=== PATIENT | male | born 1960 | race Caucasian/White ===

== ENCOUNTER 2018-07-05 14:56 | Emergency (ER) | payer MEDICARE, SELFPAY ==
[2018-07-05 14:57] VITALS: BP 148/99; PULSE 56; RESP 18; TEMP 36.6; O2SAT 98; BMI 33.1
--- NOTE | 2018-07-05 16:35 | RAD_ITS ---
STUDY: X-RAY CHEST REASON FOR EXAM: Male, 57 years old. Back pain. TECHNIQUE: Frontal and lateral views of the chest. COMPARISON: None. FINDINGS: The lungs are hyperexpanded. There is a mild interstitial pattern. There is no demonstrated pleural abnormality. There is moderate cardiomegaly. Normal mediastinum and erin. Normal visualized pulmonary arteries. There is atherosclerotic calcification of the aortic arch with tortuosity. Normal visualized thoracic spine. Normal visualized ribs, clavicles, and shoulders. There is no demonstrated abnormality of the visualized soft tissue structures of the upper abdomen. RAD/Chest PA and Lateral IMPRESSION: Moderate cardiomegaly with hyperexpansion. No acute pathology. Electronically Signed: Tyler Cuello MD at 17:01 EDT , Service support ,
[2018-07-05 17:08] LABS: Bacteria 0 SEEN /hpf (None Seen); Squamous Epithelial Cells - UA 0 SEEN /hpf (0-5)
[2018-07-05 17:18] LABS: Color, Urine Yellow (Yellow); Glucose, Dipstick Normal (Normal); Ketone-Dipstick Negative (Negative); Leukocyte Esterase-Dipstick 25 /ul (Negative); Nitrite-Dipstick Negative (Negative); Occult Blood-Urine 10 /ul (Negative); Protein-Dipstick 15 mg/dl (Negative); Urine Bilirubin Dipstick Negative (Negative); Urine Clarity Clear (Clear); Urine Urobilinogen 1 mg/dl (Normal)
[2018-07-05 17:37] LABS: Hyaline Cast 0-5 SEEN /lpf (0-5); Mucous, Urine 2+ /hpf (<or=2+)
[2018-07-05 17:38] LABS: Red Blood Cells-Urine 0-5 SEEN /hpf (0-5)
[2018-07-05 17:40] LABS: White Blood Cells 0-5 SEEN /hpf (0-5)
--- NOTE | 2018-07-05 18:57 | ED.VISSUMM ---
- ER Visit Summary Date of Service: 07/05/18 Chief Complaint: Patient presents with left back pain for 4 days. It is worse when he twists. No known mechanism. He has no urinary symptoms. He has no chest pain or shortness of breath. He has no PE risk factors. He has no chest pain. No abdominal pain. No hematuria. Physical Examination: Not appear in acute distress. Moist mucous membranes, no obvious facial deformity No C-spine tenderness supple neck. Regular rate and rhythm without any obvious murmurs He does have reproducible pain on the left, it is the lower trapezius region, no significant flank pain. Clear lungs bilaterally speaking in full sentences without any obvious respiratory distress Abdomen soft and nontender no guarding or rebound Moves all extremities without any difficulty or pain. Skin does not show any obvious rashes or lesions, no trauma. Alert oriented ?3 with no gross focal deficit Emergency Department Course and Treatment: [Patient has no CVA tenderness but he was worried about a kidney stone urinalysis showed no urinary tract infection or hematuria his pain is not consistent with a kidney stone I will not pursue this any further, his pain is mechanical worse with twisting. His chest x-ray looks unremarkable with no intra-thoracic catastrophe. Patient appears well he has had a constant pain for 3-4 days which is mechanical with twisting he will be discharged in stable condition] Impression: Thoracic strain [] This note was generated with [employer] dictation software. It may contain incorrect words, spelling, and punctuation that were not noted in review of the chart prior to signing ED Disposition - Plan for ED Patient: Disposition: Home or Assisted Living Chief Complaint: Back Instructions: ED Spasm Back No Trauma Prescriptions: Naproxen [Naprosyn] 500 mg PO BID PRN #20 tab Referrals: Care Physician,No Primary [Primary Care Provider] - 3-5 Days
[2018-07-05 19:12] VITALS: BP 161/106; PULSE 62; RESP 16; O2SAT 97
== END 2018-07-05 19:18 | disposition home or self-care (01) ==
PROVIDERS: Emergency Provider Emergency Medicine
DX: S29.012A Strain of muscle and tendon of back wall of thorax, initial encounter (principal); I10 Essential (primary) hypertension; E78.00 Pure hypercholesterolemia, unspecified; Z79.82 Long term (current) use of aspirin; Z79.899 Other long term (current) drug therapy; X58.XXXA Exposure to other specified factors, initial encounter; Y93.9 Activity, unspecified; Y92.9 Unspecified place or not applicable; Y99.9 Unspecified external cause status
CPT/HCPCS: 71046; 81001; 90471; 99284

== ENCOUNTER 2018-12-04 18:30 | Emergency (ER) | payer MEDICARE, SELFPAY ==
[2018-12-04 18:30] VITALS: BP 130/75; PULSE 71; RESP 18; TEMP 37.1; O2SAT 96; BMI 34.8
--- NOTE | 2018-12-04 22:08 | RAD_ITS ---
STUDY: X-RAY - LEFT TIBIA AND FIBULA REASON FOR EXAM: Male, 58 years old. History of infection. TECHNIQUE: AP and lateral view(s) of the tibia and fibula were obtained. COMPARISON: None. FINDINGS: There is a side plate and screws securing old fracture of the proximal tibial shaft with deformity. Multiple surgical clips are seen in the soft tissues. There is an old healed fracture of the mid third of the fibular shaft. There is no demonstrated acute fracture. There is demineralization of the osseous structures. There is diffuse soft tissue swelling and edema more prominent in the medial aspect of the left lower leg and calf region. RAD/Tibia & Fibula 2 Views IMPRESSION: 1. Old fractures of the tibia and fibula with and postoperative changes. 2. Soft tissue swelling. 3. No demonstrated destructive bony process. If osteomyelitis is suspected clinically, three-phase bone scan is recommended. Electronically Signed: Juanpablo Cadena MD at 22:43 EST Tel , Service support ,
--- NOTE | 2018-12-04 22:08 | ED.VISSUMM ---
- ER Visit Summary Date of Service: 12/04/18 Chief Complaint: Left lower extremity infection History of Present Illness: The patient is a 58 M with history of bone and muscle graft to the left lower extremity who presents with 6 days of pain and swelling to the posterior lower leg. Patient states he has had similar infections of the skin of the left lower extremity, but normally it is on the front of the leg. Last was 2 years ago. Patient has been having worsening erythema, swelling and pain to touch on the back of the leg. He denies any fever or constitutional symptoms. He is not on any blood thinners. History of hypothyroidism and depression. Physical Examination: Patient is afebrile and hemodynamically stable, well-nourished and well-developed standing up in the room. Examination of the left lower extremity shows chronic soft tissue deformities and multiple surgical scars to the leg distal to the knee. Diffuse 1+ pitting edema. Erythema to the posterior calf with a discrete erythematous nonfluctuant tender lesion. Erythema radiating proximal to this lesion. Small abrasion near the area of erythema. Distal sensation and motor function intact. DP pulses 2+. Remainder of exam unremarkable. Test Results: Clinical Impression(s) from Imaging Studies Tibia/Fibula X-Ray 12/04/18 22:08 IMPRESSION: 1. Old fractures of the tibia and fibula with and postoperative changes. 2. Soft tissue swelling. 3. No demonstrated destructive bony process. If osteomyelitis is suspected clinically, three-phase bone scan is recommended. Electronically Signed: Juanpablo Cadena MD at 22:43 EST Tel , Service support , Medications Given Clindamycin HCl (Cleocin) 450 mg PO X1 ONE Stop: 12/04/18 23:04 Emergency Department Course and Treatment: Given patient's anatomical changes secondary to multiple surgeries and his history of multiple surgeries on that part of the leg, x-ray was performed to evaluate for any subcutaneous gas or osteomyelitis that might indicate a deeper space infection. X-ray showed some soft tissue swelling but no sign of deeper infection or osteomyelitis. Patient has a small abrasion near the erythematous cellulitic area, which may be the nidus of infection. Patient is well-appearing, afebrile and is amenable to a trial of outpatient therapy. Patient was given prescription for clindamycin and strict return precautions. Patient discharged home.. Treatment Plan: [] Disposition: [] Impression: left lower leg cellulitis This note was generated with [employer] dictation software. It may contain incorrect words, spelling, and punctuation that were not noted in review of the chart prior to signing ED Disposition - Plan for ED Patient: Disposition: Home or Assisted Living Instructions: Discharge Instructions for Cellulitis Prescriptions: RX: Clindamycin [Cleocin] 450 mg PO TID #63 cap Referrals: Curt Ram MD [Primary Care Provider] - 1-2 Days if not improving Additional Instructions: Please follow-up with your doctor for another evaluation of your leg in 1-3 days, especially if you are not seeing any improvement. If at any time your symptoms worsen or you develop a fever, dizziness, lightheadedness, red streaking up your leg, severe pain, or any other concerns, return immediately to the emergency department for another evaluation.
--- NOTE | 2018-12-04 22:11 | ED.DCSUM_ITS ---
- ER Visit Summary Date of Service: 12/04/18 Chief Complaint: Left lower extremity infection History of Present Illness: The patient is a 58 M with history of bone and muscle graft to the left lower extremity who presents with 6 days of pain and swelling to the posterior lower leg. Patient states he has had similar infections of the skin of the left lower extremity, but normally it is on the front of the leg. Last was 2 years ago. Patient has been having worsening erythema, swelling and pain to touch on the back of the leg. He denies any fever or constitutional symptoms. He is not on any blood thinners. History of hypothyroidism and depression. Physical Examination: Patient is afebrile and hemodynamically stable, well-nourished and well- developed standing up in the room. Examination of the left lower extremity shows chronic soft tissue deformities and multiple surgical scars to the leg distal to the knee. Diffuse 1+ pitting edema. Erythema to the posterior calf with a discrete erythematous nonfluctuant tender lesion. Erythema radiating proximal to this lesion. Small abrasion near the area of erythema. Distal sensation and motor function intact. DP pulses 2+. Remainder of exam unremarkable. Test Results: Clinical Impression(s) from Imaging Studies Tibia/Fibula X-Ray 12/04/18 22:08 IMPRESSION: 1. Old fractures of the tibia and fibula with and postoperative changes. 2. Soft tissue swelling. 3. No demonstrated destructive bony process. If osteomyelitis is suspected clinically, three-phase bone scan is recommended. Electronically Signed: Juanpablo Cadena MD at 22:43 EST Tel , Service support , Medications Given Clindamycin HCl (Cleocin) 450 mg PO X1 ONE Stop: 12/04/18 23:04 Emergency Department Course and Treatment: Given patient's anatomical changes secondary to multiple surgeries and his history of multiple surgeries on that part of the leg, x-ray was performed to evaluate for any subcutaneous gas or osteomyelitis that might indicate a deeper space infection. X-ray showed some soft tissue swelling but no sign of deeper infection or osteomyelitis. Patient has a small abrasion near the erythematous cellulitic area, which may be the nidus of infection. Patient is well-appearing, afebrile and is amenable to a trial of outpatient therapy. Patient was given prescription for clindamycin and strict return precautions. Patient discharged home.. Treatment Plan: [] Disposition: [] Impression: left lower leg cellulitis This note was generated with [employer] dictation software. It may contain incorrect words, spelling, and punctuation that were not noted in review of the chart prior to signing ED Disposition - Plan for ED Patient: Disposition: Home or Assisted Living Instructions: Discharge Instructions for Cellulitis Prescriptions: RX: Clindamycin [Cleocin] 450 mg PO TID #63 cap Referrals: Curt Ram MD [Primary Care Provider] - 1-2 Days if not improving Additional Instructions: Please follow-up with your doctor for another evaluation of your leg in 1-3 days, especially if you are not seeing any improvement. If at any time your symptoms worsen or you develop a fever, dizziness, lightheadedness, red streaking up your leg, severe pain, or any other concerns, return immediately to the emergency department for another evaluation.
[2018-12-04 22:24] VITALS: BP 131/82; PULSE 58; PULSE 61; RESP 17; TEMP 36.8; O2SAT 96; O2SAT 97
[2018-12-04] MEDS: Clindamycin HCl 150 MG Capsule 450 MG PO (23:17)
[2018-12-04 23:18] VITALS: PULSE 69; RESP 18; O2SAT 98
== END 2018-12-04 23:19 | disposition home or self-care (01) ==
PROVIDERS: Emergency Provider Emergency Medicine; Family Provider Family Medicine; PCP Family Medicine
DX: L03.116 Cellulitis of left lower limb (principal); Z79.82 Long term (current) use of aspirin; Z79.899 Other long term (current) drug therapy
CPT/HCPCS: 73590; 99283

== ENCOUNTER 2018-12-05 11:52 | Observation (INO) | payer MEDICARE, SELFPAY ==
[2018-12-04 18:30] VITALS: BMI 34.8
[2018-12-05] VITALS (8 sets, daily range): BP systolic 122–152; BP diastolic 60–94; PULSE 60–72; RESP 16–18; TEMP 36.2–36.8; O2SAT 95–98; BMI 35.2; BMI 34.4
--- NOTE | 2018-12-05 12:01 | VDLE_ITS ---
Reason For Study: LEG SWELLING RIGHT LEFT CFV is compressible, spontaneous, phasic, GSV is normal. competent and demonstrates normal CFV is compressible, spontaneous, phasic, augmentation. competent, and demonstrates normal Procedure augmentation. Exam performed portable in ED. FV is compressible, spontaneous, phasic, A preliminary report was called and/or faxed competent and demonstrates normal to Dr. Cruz. augmentation. POP V is compressible, spontaneous, phasic, competent and demonstrates normal augmentation. T/P Trunk is compressible. PTV is compressible. LT PerV is compressible. Interpretation Summary Deep veins of the left lower extremity are patent and compressible segmentally. There is no evidence of left lower extremity deep vein thrombosis. Valvular competence appears intact within the proximal deep venous system on the left . The left greater saphenous vein appears patent and compressible segmentally. Ordering Physician: Humberto Cruz Referring Physician: Curt Ram Performed By: Magdalena Whitehead RVT
--- NOTE | 2018-12-05 12:28 | ED.VISSUMM ---
- ER Visit Summary Date of Service: 12/05/18 Chief Complaint: Cellulitis History of Present Illness: The patient is a 58 M presents to the emergency department with cellulitis. The patient has a history of prior skin, muscle, and bone grafting of his left lower extremity. He states intimately, he will get an infection of the area. He states over the past 5 days, he has had some increasing redness and pain at the area. He was actually seen here last night. At that time, his x-ray was unremarkable. He was started on clindamycin. He followed up with his primary care physician today. There was concern that it was getting more red and spreading. He denies any fevers. He denies any chills or sweats. Physical Examination: Vital signs reviewed General: Well-nourished, well-developed Head: Normocephalic, atraumatic Eyes: Pupils equal and reactive, extraocular muscles intact Neck, supple, no lymphadenopathy Heart: Regular rate and rhythm Respiratory: No distress, clear bilaterally Abdomen: Soft, nontender, nondistended, no peritoneal signs Back: Nontender Extremities: Chronic changes of the left lower extremity from skin grafting. There is cellulitis with some nodularity on the posterior aspect. There is no crepitus. Pulses are normal. There is no skin breakdown or drainage. Skin: Normal color no rash Neuro: Alert and oriented, no focal or lateralizing deficits Test Results: [] Emergency Department Course and Treatment: Patient presents with worsening erythema of the posterior leg. He is on clindamycin. He saw his primary care today who is worried given the rather acute progression. I did obtain an ultrasound. Vasculature was normal. There was no definitive fluid collection that was consistent with an abscess. Screening labs were obtained and are relatively unremarkable. The patient was started on IV antibiotics. At this time, I do feel that he would benefit from admission for IV antibiotics and reevaluation of the area. Patient was discussed with the hospitalist. Treatment Plan: [] Disposition: Admission Impression: 1. Left lower extremity cellulitis This note was generated with [employer] software. It may contain incorrect words, spelling, and punctuation that were not noted in review of the chart prior to signing ED Disposition - Plan for ED Patient: Referrals: Curt Ram MD [Primary Care Provider] -
[2018-12-05 12:46] LABS: Absolute Lymphocyte Count 1.85 X10^3/ul (0.83-4.51); Absolute Neutrophil Count 2.8 X10^3/uL (2.0-7.7); Basophil# 0.15 X10^3/uL; Basophil% 2.3 % (0-1); Eosinophil# 0.66 X10^3/uL; Eosinophils% 10.2 % (0-5); Hematocrit 33.7 % (40-54); Hemoglobin 10.8 g/dl (13.0-16.5); Lymphocyte # 1.85 X10^3/ul (4.0); Lymphocyte % 28.7 % (19-41); Mean Corpuscular Hgb 29.1 pg (27.0-32.0); Mean Corpuscular Volume 90.8 fL (80-94); Mean Platelet Vol. 9.5 fl (6.2-12.0); Monocyte# 0.96 X10^3/uL; Monocyte% 14.9 % (0-10); Neutrophil # 2.82 X10^3/uL (2.7-7.7); Neutrophil % 43.7 % (47-70); POSITIVE COUNT NO; POSITIVE DIFFERENTIAL NO; POSITIVE MORPHOLOGY NO; Platelet Count 245 K/mm3 (150-450); RBC Distribution Width CV 14.4 % (11.6-14.6); RBC Distribution Width SD 47.8 fl (35.1-43.9); Red Blood Count 3.71 M/mm3 (4.6-6.2); White Blood Count 6.5 K/mm3 (4.4-11.0)
[2018-12-05 12:59] LABS: ALB/GLOB Ratio 0.8 RATIO (0.9-2.4); AST(SGOT) 27 U/L (15-37); Alanine Aminotransfer ALT/SGPT 30 U/L (16-61); Albumin, Serum 3.2 g/dL (3.2-5.0); Alkaline Phosphatase 93 U/L (45-117); Anion Gap 5 (5-15); BUN 13 mg/dL (7-18); BUN/Creat Ratio 13.1 RATIO (10-20); Calcium,Total 8.1 mg/dL (8.5-10.1); Chloride 110 mmol/L (98-107); Creatinine, Serum 0.99 mg/dL (0.70-1.30); EST Glomerular Filtration Rate 82 mL/min (>60); Est Glom Filt Rate - Afr Amer 99 mL/min (>60); Estimated Creatinine Clearance 85.57 ml/min; Globulin 3.8 g/dL (2.2-4.2); Glucose 92 mg/dL (74-106); Potassium 3.5 mmol/L (3.5-5.1); Sodium Level 142 mmol/L (136-145)
[2018-12-05 13:07] LABS: Lactic Acid 1.3 mmol/L (0.4-2.0)
[2018-12-05] MEDS: Ceftriaxone 1 GM/50 ML BAG IV (13:31)
--- NOTE | 2018-12-05 14:14 | NURSING ---
MED SURG JAVAD LEFT LOWER EXTREMITY CELLULITIS
--- NOTE | 2018-12-05 17:08 | HP.PCM_ITS ---
<Tobin Guerra - Last Filed: 12/05/18 17:19> Problem List (1) Cellulitis Status: Acute (2) Crush injury lower leg Status: Chronic (3) GERD (gastroesophageal reflux disease) Status: Acute (4) BPH (benign prostatic hyperplasia) Status: Chronic (5) Hypothyroidism Status: Chronic (6) HLD (hyperlipidemia) Status: Chronic History of Present Illness Date of Admission: 12/05/18 Chief Complaint: left leg swelling The patient is a 58 year old M with pmhx of crush injury to the left leg, htn, hld, prior cellulitis of the crush injury area, hypothyroidism who presents to the ER with c/o swelling and redness of the left lower extremity over his old crush injury (22 years ago). He began to notice the changes about one week prior. He denies trauma to the area, it began spontaneously. He has had cellulitis of this area several years prior. He does not know what type of bacteria he had. He was started on clinda and was sent by his PCP to the ER. He has no fever or chills. No other signs of infection. No cough/sob. No diarrhea, Nausea, or abdominal pain. [] Past Medical History Past Medical History (Chronic Problems): Chronic Problems Crush injury lower leg (Chronic) BPH (benign prostatic hyperplasia) (Chronic) Hypothyroidism (Chronic) HLD (hyperlipidemia) (Chronic) Allergies No Known Allergies Allergy (Verified 12/04/18 18:33) Home Medications: Ambulatory Orders Medication Instructions Recorded Famotidine [Pepcid] 20 mg PO DAILY 05/18/16 Finasteride [Proscar] 5 mg PO DAILY 05/18/16 Pravastatin [Pravachol] 40 mg PO QHS 05/18/16 Aspirin E.C. [Ecotrin] 81 mg PO DAILY@0800 12/12/16 Cyanocobalamin (Vitamin B-12) 1,000 mcg PO DAILY 12/04/18 [Vitamin B-12] Fluoxetine HCl 40 mg PO DAILY 12/05/18 Labetalol [Trandate (Beta Jigar)] 100 mg PO BID 12/05/18 Levothyroxine [Synthroid] 75 mcg PO DAILY 12/05/18 Surgical History: herniorrhaphy, - - crush injury repair. Psychiatric History: No pertinent psych hx Lives: Spouse/ Significant Other Smoking Status: Former smoker Tobacco Use: Non-smoker Alcohol: None Drugs: None - *Family History Maternal History Items: Cancer Paternal History Items: Hypertension Review of Systems Constitutional: Denies: Chills, Fever, Weight Change HEENT: Denies: Head Aches, Sinus Congestion, Sinus Drainage Cardiovascular: Denies: Chest Pain, Palpitations Respiratory: Denies: Cough, Shortness of breath at rest, Sputum production Gastrointestinal: Denies: Abdominal Pain, Nausea, Vomiting Genitourinary: Denies: Dysuria Musculoskeletal: Denies: Joint Pain, Joint Tenderness Skin: Reports: - - LLE warmth, erythema, swelling. Demarcated. Denies: Rash, Wounds Neurological: Denies: Numbness, Tingling, Focal weakness Psychiatric: Denies: Anxiety, Depression, Homicidal Ideations, Suicidal Ideations Hematologic/ Lymphatic: Denies: Easy Bruising, Easy Bleeding VTE Information - Inpt Only VTE Present on Admission: No VTE Mechan Device Prophylaxis: None VTE Pharm Prophylaxis ordered?: Yes Patient Problems: Active and Suspected Problems Cellulitis (Acute) GERD (gastroesophageal reflux disease) (Acute) - Physical Exam General: Alert, Oriented x3, Cooperative HEENT: Atraumatic, PERRLA, EOMI, Normocephalic Neck: Supple, No JVD, Negative Carotid Bruits Lungs: Clear to auscultation, Normal air movement Cardiovascular: Regular rate, No murmurs Abdomen: Bowel Sounds Present, Soft, Non Tender Extremities: No edema, Capillary Refill Less than 3 Seconds Skin: No rashes, No breakdown, - - LLE warmth, swelling, erythtema, demarcated. Musculoskeletal: No Tenderness to Palpation of Joints or Extremities Neurological: Cranial nerves II-XII grossly intact Psych/Mental Status: Normal Affect, Appropriate Vital Signs Temp Pulse Resp BP Pulse Ox 97.2 F L 64 18 128/60 H 98 12/05/18 16:00 12/05/18 16:00 12/05/18 16:00 12/05/18 16:00 12/05/18 16:00 Oxygen Delivery Method Room Air Weight: 246 lb 11.156 oz Body Mass Index (BMI) 34.4 Laboratory Tests Past 24 Hrs 12/05/18 12/05/18 12/05/18 12:31 12:31 12:31 WBC 6.5 RBC 3.71 L Hgb 10.8 L Hct 33.7 L MCV 90.8 MCH 29.1 MCHC 32.0 RDW 14.4 RDW Differential 47.8 H Plt Count 245 MPV 9.5 Immature Gran % (Auto) 0.200 Neut % (Auto) 43.7 L Lymph % (Auto) 28.7 [place]if[place] % (Auto) 14.9 H Eos % (Auto) 10.2 H Baso % (Auto) 2.3 H Absolute Neuts (auto) 2.8 Absolute Lymphs (auto) 1.85 Total Counted Not Reportable Sodium 142 Potassium 3.5 Chloride 110 H Carbon Dioxide 27.0 Anion Gap 5 BUN 13 Creatinine 0.99 Estim Creat Clear Calc 85.57 Est GFR (MDRD) Af Amer 99 Est GFR (MDRD) Non-Af 82 BUN/Creatinine Ratio 13.1 Glucose 92 Lactic Acid 1.3 Calcium 8.1 L Total Bilirubin 1.60 H AST 27 ALT 30 Alkaline Phosphatase 93 Total Protein 7.0 Albumin 3.2 Globulin 3.8 Albumin/Globulin Ratio 0.8 L Assessment/Plan All Active Problems Cellulitis (Acute) GERD (gastroesophageal reflux disease) (Acute) Acute respiratory insufficiency (Acute) Hemoptysis (Acute) CAP (community acquired pneumonia) (Acute) 1. Acute LLE cellulitis - Received o/p clinda, Vanc/Rocephin in ER. Continue Ancef. Erythema demarcated. No fever or leukocytosis. No other signs of sepsis. No open areas or drainage. 2. Crush injury 22 years prior - area is permanently structurally changed and pt reports some of his vasculature was destroyed, which will contribute to poor wound healing as above 3. Hx of Ruptured brain aneurysm 4. HLD - statin 5. HTN - stable 6. Mild normocytic anemia 7. GERD - pepcid 8. BPH - proscar 9. Hypothyroid - synthroid DVT ppx: lovenox This patient was seen by Tobin Guerra PA-C under the supervision of Dr. Aguilar. <Jevon Aguilar - Last Filed: 12/05/18 17:35> History of Present Illness The patient is a 58 year old M [] Past Medical History Allergies No Known Allergies Allergy (Verified 12/04/18 18:33) - Physical Exam Vital Signs Temp Pulse Resp BP Pulse Ox 97.2 F L 64 18 128/60 H 98 12/05/18 16:00 12/05/18 16:00 12/05/18 16:00 12/05/18 16:00 12/05/18 16:00 Oxygen Delivery Method Room Air Weight: 246 lb 11.156 oz Body Mass Index (BMI) 34.4 Laboratory Tests Past 24 Hrs 12/05/18 12/05/18 12/05/18 12:31 12:31 12:31 WBC 6.5 RBC 3.71 L Hgb 10.8 L Hct 33.7 L MCV 90.8 MCH 29.1 MCHC 32.0 RDW 14.4 RDW Differential 47.8 H Plt Count 245 MPV 9.5 Immature Gran % (Auto) 0.200 Neut % (Auto) 43.7 L Lymph % (Auto) 28.7 [place] % (Auto) 14.9 H Eos % (Auto) 10.2 H Baso % (Auto) 2.3 H Absolute Neuts (auto) 2.8 Absolute Lymphs (auto) 1.85 Total Counted Not Reportable Sodium 142 Potassium 3.5 Chloride 110 H Carbon Dioxide 27.0 Anion Gap 5 BUN 13 Creatinine 0.99 Estim Creat Clear Calc 85.57 Est GFR (MDRD) Af Amer 99 Est GFR (MDRD) Non-Af 82 BUN/Creatinine Ratio 13.1 Glucose 92 Lactic Acid 1.3 Calcium 8.1 L Total Bilirubin 1.60 H AST 27 ALT 30 Alkaline Phosphatase 93 Total Protein 7.0 Albumin 3.2 Globulin 3.8 Albumin/Globulin Ratio 0.8 L Code Visit Addendum: Dr. Aguilar I personally examined the patient and reviewed the chart. I agree with the above. 58-year-old male who presented to the ER yesterday with left lower extremity cellulitis at the site of his previous crush injury from 22 years ago that had required skin grafting, he was given clindamycin yesterday and presents back today because he felt that it looked a little bit worse. His made him go to his primary care physician who felt that he should come back to the ER. He is hemodynamically stable and is not septic. There is no sign of an abscess therefore will treat as a strep cellulitis with Ancef. If he improves can either resume clindamycin which she already has at home, or can be discharged on Keflex. OBSV E&M: [id number] Initial observation care L3
[2018-12-05] MEDS: Labetalol 100 MG Tablet PO (21:46)
[2018-12-05] MEDS: 0.9% NaCl Peripheral Flush Adult/Peds IV (21:46)
[2018-12-05] MEDS: Cefazolin 2 GM in 0.9% Normal Saline 100 ML IV (21:46)
[2018-12-05] MEDS: Pravastatin 40 MG Tablet PO (21:46)
[2018-12-06] MEDS: oxyCODONE 5 MG Tablet PO (01:06)
[2018-12-06 04:14] VITALS: BP 137/84; PULSE 70; RESP 16; TEMP 36.6; O2SAT 94
[2018-12-06] MEDS: Cefazolin 2 GM in 0.9% Normal Saline 100 ML IV (06:22)
[2018-12-06] MEDS: Levothyroxine 75 MCG Tablet PO (06:22)
[2018-12-06] MEDS: 0.9% NaCl Peripheral Flush Adult/Peds IV (06:23)
[2018-12-06 07:20] LABS: Absolute Lymphocyte Count 1.57 X10^3/ul (0.83-4.51); Absolute Neutrophil Count 3.3 X10^3/uL (2.0-7.7); Basophil# 0.08 X10^3/uL; Basophil% 1.3 % (0-1); Eosinophil# 0.59 X10^3/uL; Eosinophils% 9.3 % (0-5); Hematocrit 33.4 % (40-54); Hemoglobin 10.5 g/dl (13.0-16.5); Lymphocyte # 1.57 X10^3/ul (4.0); Lymphocyte % 24.8 % (19-41); Mean Corp Hgb Conc 31.4 g/gl (32-36); Mean Corpuscular Volume 92.3 fL (80-94); Monocyte# 0.81 X10^3/uL; Monocyte% 12.8 % (0-10); Neutrophil # 3.27 X10^3/uL (2.7-7.7); Neutrophil % 51.6 % (47-70); Platelet Count 265 K/mm3 (150-450); RBC Distribution Width CV 14.3 % (11.6-14.6); RBC Distribution Width SD 46.8 fl (35.1-43.9); Red Blood Count 3.62 M/mm3 (4.6-6.2); White Blood Count 6.3 K/mm3 (4.4-11.0)
[2018-12-06 07:21] LABS: POSITIVE COUNT NO; POSITIVE DIFFERENTIAL NO; POSITIVE MORPHOLOGY NO
[2018-12-06 07:53] LABS: Anion Gap 7 (5-15); BUN 7 mg/dL (7-18); BUN/Creat Ratio 8.2 RATIO (10-20); Calcium,Total 7.8 mg/dL (8.5-10.1); Chloride 113 mmol/L (98-107); Creatinine, Serum 0.85 mg/dL (0.70-1.30); EST Glomerular Filtration Rate 98 mL/min (>60); Est Glom Filt Rate - Afr Amer 118 mL/min (>60); Estimated Creatinine Clearance 99.66 ml/min; Glucose 89 mg/dL (74-106); Potassium 3.5 mmol/L (3.5-5.1); Sodium Level 145 mmol/L (136-145)
[2018-12-06 09:00] VITALS: BP 138/81; PULSE 68; RESP 18; TEMP 36.7; O2SAT 94
[2018-12-06] MEDS: FLUoxetine 20 MG Capsule 40 MG PO (09:02)
[2018-12-06] MEDS: Cyanocobalamin 500 MCG Tablet 1000 MCG PO (09:02)
[2018-12-06] MEDS: Aspirin E.C. 81 MG Tablet PO (09:02)
[2018-12-06] MEDS: Labetalol 100 MG Tablet PO (09:03)
[2018-12-06] MEDS: Famotidine 20 MG Tablet PO (09:03)
[2018-12-06] MEDS: Finasteride 5 MG Tablet PO (09:05)
[2018-12-06] MEDS: Enoxaparin 40 MG/0.4 ML Syringe SC (09:05)
--- NOTE | 2018-12-06 11:45 | DCINST_ITS ---
- Discharge Diagnoses Current Active Problems: Current Active and Chronic Problems Crush injury lower leg (Chronic) Cellulitis (Acute) GERD (gastroesophageal reflux disease) (Acute) BPH (benign prostatic hyperplasia) (Chronic) Hypothyroidism (Chronic) HLD (hyperlipidemia) (Chronic) You will use the following diet at home:: No restrictions Your food should be the consistency of: Regular Your liquids should be the consistency of: Regular/Thin Discharge Activity: Return to Normal Activity Allergies/Adverse Reactions: Allergies No Known Allergies Allergy (Verified 12/04/18 18:33) Medications to take at Discharge Famotidine [Pepcid] 20 mg PO DAILY 05/18/16 Finasteride [Proscar] 5 mg PO DAILY 05/18/16 Pravastatin [Pravachol] 40 mg PO QHS 05/18/16 Aspirin E.C. [Ecotrin] 81 mg PO DAILY@0800 12/12/16 Cyanocobalamin (Vitamin B-12) [Vitamin B-12] 1,000 mcg PO DAILY 12/04/18 Fluoxetine HCl 40 mg PO DAILY 12/05/18 Labetalol [Trandate (Beta Jigar)] 100 mg PO BID 12/05/18 Levothyroxine [Synthroid] 75 mcg PO DAILY 12/05/18 Cephalexin [Keflex] 500 mg PO Q8H #15 capsule 12/06/18 The following prescriptions were given: Cephalexin [Keflex] 500 mg PO Q8H #15 capsule Primary Care Physician: Curt Ram MD [Primary Care Provider] - Please follow up with your Primary Care Physician in: 1 week Test Results: Test results from this visit will be discussed in further detail at your follow- up appointment, if applicable.
--- NOTE | 2018-12-06 15:30 | PCM.DC.SUM ---
<Tobin Guerra - Last Filed: 12/06/18 15:30> Discharge Date and Diagnosis Date of Admission: 12/05/18 Date of Discharge: 12/06/18 - Primary Discharge Diagnosis Acute cellulitis, presumed streptococcal, of left lower extremity over old crush injury Traumatic crush injury 22 years prior History of BPH History of hypothyroidism History of hyperlipidemia History of GERD - Secondary Discharge Diagnosis Chronic Problems Crush injury lower leg (Chronic) BPH (benign prostatic hyperplasia) (Chronic) Hypothyroidism (Chronic) HLD (hyperlipidemia) (Chronic) Hospital Course and Treatment Imaging Results: Venous duplex LLE Interpretation Summary Deep veins of the left lower extremity are patent and compressible segmentally. There is no evidence of left lower extremity deep vein thrombosis. Valvular competence appears intact within the proximal deep venous system on the left . The left greater saphenous vein appears patent and compressible segmentally. Operations: None Procedures: None Summary of Care Provided: Hospital course: The patient is a 58 year old M with past medical history of a crush injury 22 years prior requiring multiple skin grafts, prior cellulitis over that area, history of hypertension, GERD, BPH, who presented to the emergency room with complaints of left lower extremity erythema and swelling worsening x 7 days. He had no fever, no leukocytosis. Venous ultrasound was ordered and did not show any DVT. It appeared that he had cellulitis over the area of his old crush injury. He reported that he did have a history of cellulitis in that area. He denied having a history of MRSA. He had been placed on clindamycin by his PCP, who was concerned that the rash was not improving and sent him to the emergency room. He was admitted to the general medical floor and started on IV Ancef as this appeared to be streptococcal infection. There are no open areas or areas suggesting abscess. No drainage. The wound was demarcated. He was monitored overnight and the following morning his area of cellulitis had improved dramatically. He continued to have no fever or white blood cell count and otherwise appeared nontoxic. He was placed on oral Keflex to complete 5 more days for total of 7 days antibiotic therapy. He was discharged home in stable condition. He will need to follow-up with his PCP in 1 week. This patient was seen by Tobin Guerra PA-C under the supervision of Doctor Lee. [] - Physical Exam General: Alert, Oriented x3, Cooperative HEENT: Atraumatic, PERRLA, EOMI, Normocephalic Neck: Supple, No JVD, Negative Carotid Bruits Lungs: Clear to auscultation, Normal air movement Cardiovascular: Regular rate, No murmurs Abdomen: Bowel Sounds Present, Soft, Non Tender Extremities: No edema, Capillary Refill Less than 3 Seconds Skin: - - Left lower extremity area of cellulitis, erythema is regressing away from the demarcations, erythema is less, no further warmth, no areas of abscess, no open areas, no lymphatic stranding in proximal leg. Musculoskeletal: No Tenderness to Palpation of Joints or Extremities Neurological: Cranial nerves II-XII grossly intact Psych/Mental Status: Normal Affect, Appropriate, Alert and oriented to time, place, person, mood and affect Vital Signs Temp Pulse Resp BP Pulse Ox 98.1 F 68 18 138/81 H 94 12/06/18 09:00 12/06/18 09:00 12/06/18 09:00 12/06/18 09:00 12/06/18 09:00 Oxygen Delivery Method Room Air Weight: 246 lb 11.156 oz Body Mass Index (BMI) 34.4 Intake and Output for Last 24 Hours 12/04/18 12/05/18 12/06/18 23:59 23:59 23:59 Intake Total 1300 / 1300 1550.3 / 1550.3 Output Total 650 / 650 500 / 500 Balance 650 / 650 1050.3 / 1050.3 Laboratory Tests Past 24 Hrs 12/06/18 12/06/18 06:50 06:50 WBC 6.3 RBC 3.62 L Hgb 10.5 L Hct 33.4 L MCV 92.3 MCH 29.0 MCHC 31.4 L RDW 14.3 RDW Differential 46.8 H Plt Count 265 MPV 10.0 Immature Gran % (Auto) 0.200 Neut % (Auto) 51.6 Lymph % (Auto) 24.8 [place] % (Auto) 12.8 H Eos % (Auto) 9.3 H Baso % (Auto) 1.3 H Absolute Neuts (auto) 3.3 Absolute Lymphs (auto) 1.57 Total Counted Not Reportable Sodium 145 Potassium 3.5 Chloride 113 H Carbon Dioxide 25.0 Anion Gap 7 BUN 7 Creatinine 0.85 Estim Creat Clear Calc 99.66 Est GFR (MDRD) Af Amer 118 Est GFR (MDRD) Non-Af 98 BUN/Creatinine Ratio 8.2 L Glucose 89 Calcium 7.8 L Discharge Activity: Return to Normal Activity Home Medications: Medications to take at Discharge Famotidine [Pepcid] 20 mg PO DAILY 05/18/16 Finasteride [Proscar] 5 mg PO DAILY 05/18/16 Pravastatin [Pravachol] 40 mg PO QHS 05/18/16 Aspirin E.C. [Ecotrin] 81 mg PO DAILY@0800 12/12/16 Cyanocobalamin (Vitamin B-12) [Vitamin B-12] 1,000 mcg PO DAILY 12/04/18 Fluoxetine HCl 40 mg PO DAILY 12/05/18 Labetalol [Trandate (Beta Jigar)] 100 mg PO BID 12/05/18 Levothyroxine [Synthroid] 75 mcg PO DAILY 12/05/18 Cephalexin [Keflex] 500 mg PO Q8H #15 capsule 12/06/18 Following Prescrptions Were Given to Patient: Cephalexin [Keflex] 500 mg PO Q8H #15 capsule Primary Care Physician: Curt Ram MD [Primary Care Provider] - Please follow up with your Primary Care Physician in: 1 week Disposition: Home Minutes spent on discharge:: 35 Patient Condition:: Stable Medical Necessity - Tobacco Use Smoking Status: Former smoker Tobacco Use: Non-smoker Meaningful Use Info Meaningful Use Diagnoses (Choose all that apply): None applicable <Irma Lee - Last Filed: 12/06/18 15:54> Discharge Date and Diagnosis - Secondary Discharge Diagnosis Chronic Problems Crush injury lower leg (Chronic) BPH (benign prostatic hyperplasia) (Chronic) Hypothyroidism (Chronic) HLD (hyperlipidemia) (Chronic) Hospital Course and Treatment Summary of Care Provided: This patient was seen in conjunction with CLARK Vasquez. I have independently interviewed and examined the patient and reviewed pertinent historical, laboratory, and other data. Please refer to CLARK Vasquez note for his patient's presentation, findings, and recommendations. I have reviewed and his note and concur with his documentation 58-year-old male with past medical history of crush injury status post multiple skin graft, history of cellulitis, hypertension, GERD, BPH comes in with complaints of lower extremity erythema and swelling ongoing for a week. Venous Doppler ultrasound was negative for any DVT. Patient was admitted to the floor, managed on IV Ancef. He appears improved, no events overnight. He was discharged home on Keflex. The day of discharge, patient was seen and examined. Denied any new complaint. Denies fever, chills, chest pain or dizziness or palpitation. He was ready for discharge. Vitals were stable Labs reviewed -able Physical Exam: Gen: Obese, alert oriented x3 , not pale, not jaundiced CVS:HS I +II, regular, no murmurs RESP: CTA GI: Full, firm, nontender, no ballotable organs heart sounds are present, soft, nontender, no palpable organs EXT: Left lower extremity erythema improved, scarring of the left lower extremity - Physical Exam Vital Signs Temp Pulse Resp BP Pulse Ox 98.1 F 68 18 138/81 H 94 12/06/18 09:00 12/06/18 09:00 12/06/18 09:00 12/06/18 09:00 12/06/18 09:00 Oxygen Delivery Method Room Air Weight: 111.9 kg Body Mass Index (BMI) 34.4 Intake and Output for Last 24 Hours 12/04/18 12/05/18 12/06/18 23:59 23:59 23:59 Intake Total 1300 / 1300 1550.3 / 1550.3 Output Total 650 / 650 500 / 500 Balance 650 / 650 1050.3 / 1050.3 Laboratory Tests Past 24 Hrs 12/06/18 12/06/18 06:50 06:50 WBC 6.3 RBC 3.62 L Hgb 10.5 L Hct 33.4 L MCV 92.3 MCH 29.0 MCHC 31.4 L RDW 14.3 RDW Differential 46.8 H Plt Count 265 MPV 10.0 Immature Gran % (Auto) 0.200 Neut % (Auto) 51.6 Lymph % (Auto) 24.8 [place] % (Auto) 12.8 H Eos % (Auto) 9.3 H Baso % (Auto) 1.3 H Absolute Neuts (auto) 3.3 Absolute Lymphs (auto) 1.57 Total Counted Not Reportable Sodium 145 Potassium 3.5 Chloride 113 H Carbon Dioxide 25.0 Anion Gap 7 BUN 7 Creatinine 0.85 Estim Creat Clear Calc 99.66 Est GFR (MDRD) Af Amer 118 Est GFR (MDRD) Non-Af 98 BUN/Creatinine Ratio 8.2 L Glucose 89 Calcium 7.8 L Discharge Diet: Low fat/ Low Cholesterol, 2000 mg Sodium Diet Code Visit Inpatient E&M: 45917 Disch Hosp
== END 2018-12-06 13:35 | disposition home or self-care (01) ==
LOC: ED 12:30 → MS3 14:23
PROVIDERS: Admitting Provider Family Medicine; Emergency Provider Emergency Medicine; Family Provider Family Medicine; PCP Family Medicine; Referring Provider Family Medicine; Visit Provider Internal Medicine
DX: L03.116 Cellulitis of left lower limb (principal); K21.9 Gastro-esophageal reflux disease without esophagitis; E78.5 Hyperlipidemia, unspecified; E03.9 Hypothyroidism, unspecified; N40.0 Benign prostatic hyperplasia without lower urinary tract symptoms; Z79.899 Other long term (current) drug therapy; Z79.82 Long term (current) use of aspirin; Z87.891 Personal history of nicotine dependence; D64.9 Anemia, unspecified; I10 Essential (primary) hypertension
CPT/HCPCS: 80048; 80053; 83605; 85025; 87040; 93971; 96365; 96366; 96367; 96372; 96376; 99218; 99283; J7030; J7040; A4216; G0378

== ENCOUNTER 2019-09-29 09:52 | Observation (INO) | payer MEDICARE, SELFPAY ==
[2018-12-05 15:01] VITALS: BMI 34.4
[2019-09-29] VITALS (9 sets, daily range): BP systolic 133–166; BP diastolic 82–119; PULSE 54–72; RESP 17–18; TEMP 36.2–36.6; O2SAT 95–98; BMI 34.8; BMI 33.6; BMI 33.7
--- NOTE | 2019-09-29 10:21 | VDLE_ITS ---
Reason For Study: swelling RIGHT LEFT CFV is compressible, spontaneous, phasic, GSV is normal. competent and demonstrates normal CFV is compressible, spontaneous, phasic, augmentation. competent, and demonstrates normal Procedure augmentation. Exam performed portable in ED. FV is compressible, spontaneous, phasic, The exam was diagnostic. competent and demonstrates normal A preliminary report was called and/or faxed augmentation. to ED Physician. POP V is compressible, spontaneous, phasic, competent and demonstrates normal augmentation. T/P Trunk is compressible. PTV is compressible. LT PerV is compressible. Interpretation Summary Deep veins of the left lower extremity are patent and compressible segmentally. There is no evidence of left lower extremity deep vein thrombosis. Valvular competence appears intact within the proximal deep venous system on the left . The left great saphenous vein appears patent and compressible segmentally. Ordering Physician: Verna Long Performed By: Vasile Jamison RVT
--- NOTE | 2019-09-29 10:21 | EKG12_ITS ---
Test Reason : CP Blood Pressure : / mmHG Vent. Rate : 054 BPM Atrial Rate : 054 BPM P-R Int : 216 ms QRS Dur : 094 ms QT Int : 470 ms P-R-T Axes : -17 004 029 degrees QTc Int : 445 ms Sinus bradycardia with 1st degree A-V block Minimal voltage criteria for LVH, may be normal variant Borderline ECG Confirmed by ROOPA HORNE, ANITHA ([id number]), manager editorial ROSAURA ROMERO ([id number]) on 10/05/2019 11:52:28 AM Referred By: Yoel Duval Confirmed By:ANITA BLAS MD
--- NOTE | 2019-09-29 10:21 | RAD_ITS ---
STUDY: X-RAY CHEST REASON FOR EXAM: Male, 58 years old. 20 minute history of chest pain. TECHNIQUE: PA and lateral views of the chest. COMPARISON: Comparison is made with prior examination dated July 05, 2018. FINDINGS: EKG electrodes are seen. Hyperinflation. Minimal thickening of the right minor fissure. There is no demonstrated pleural abnormality. Normal size heart. Normal mediastinum and erin. Normal visualized pulmonary arteries. There is atherosclerotic tortuosity of the aortic arch and descending thoracic aorta. There are degenerative changes of the visualized thoracic spine. Normal visualized ribs, clavicles, and shoulders. Calcific densities are seen in the right upper quadrant most likely secondary to gallstones. RAD/Chest PA and Lateral IMPRESSION: Hyperinflation. The lungs are clear. Electronically Signed: Brenton Gaytan, at 10:54 EST , Service support ,
[2019-09-29] MEDS: Aspirin 81 MG TAB.CHEW 324 MG PO (10:26)
--- NOTE | 2019-09-29 10:27 | ED.DCSUM_ITS ---
History of Present Illness Chief Complaint: Chest Pain Informant: Patient Onset: Yesterday Activity at onset: Exertion Timing: Intermittent Quality: Sharp Location: Right Chest Narrative: Patient is a 58-year-old male with history of hypertension and prior brain aneurysm presenting with chest pain. He states he developed it this morning when he was cleaning snow off his car. Is in the right side of his chest. It lasted for about 30 minutes and then resolve spontaneously. Patient denies any associated shortness of breath. He notes he had a couple episodes similar to this yesterday. They all seem to be exertional associated with exertion. He did have cough and cold-like symptoms for the past week which have resolved. He denies associated fever. He denies any shortness of breath. He denies any upper respiratory symptoms currently. He denies any abdominal pain or GI symptoms. Patient does have a history of a crush injury to his left lower leg and does feel it is maybe been slightly more swollen or red over the past few days. He denies any other complaints at this time. Prior Similar Symptoms: No Past Medical History - Allergies and Home Meds Allergies/Adverse Reactions: Allergies No Known Allergies Allergy (Verified 09/29/19 09:54) Primary Care Physician: Curt Ram MD [Primary Care Provider] - Past Medical History: - - Crush injury to the left lower leg, cellulitis, GERD, BPH, hypothyroid, hyperlipidemia Surgical History: herniorrhaphy, - - crush injury repair. Lives: Spouse/ Significant Other Smoking Status: Former smoker - Family History Maternal Family History: Reports: Cancer Paternal Family History: Reports: Hypertension Review of Systems General: Denies: Chills, Fever, Sweats Eyes: Denies: Visual changes - bilaterally, Diplopia ENT: Denies: Rhinorrhea, Sore throat Cardiovascular: Reports: Chest pain. Denies: Palpitations Respiratory: Reports: Cough. Denies: Dyspnea, Dyspnea on exertion Gastrointestinal: Denies: Abdominal pain, Nausea, Vomiting, Diarrhea, Melena, Hematochezia Genitourinary: Denies: Dysuria, Hematuria, Frequency Musculoskeletal: Reports: Extremity Pain - Left lower extremity?calf. Denies: Back pain Skin: Denies: Rash, Wounds Neurological: Denies: Headache, Weakness, Numbness Physical Exam Vital Signs/Narrative: Vital Signs Temp Pulse Resp BP Pulse Ox 09/29/19 09:52 98 F 54 L 18 152/97 H 98 Inital Vital Signs reviewed: Yes General: Well nourished, Well developed, No Acute Distress Head: Normocephalic, Atraumatic Eyes: Perrl, EOMI ENT: Moist mucous membranes, No rhinorrhea Neck: Supple, Nontender, No JVD Cardiovascular: Regular rate, Regular rhythm, No murmurs Respiratory: No distress, CTA bilaterally, Chest nontender Abdomen: Soft, Nontender, Nondistended, Normal bowel sounds Back: Nontender, Normal Inspection Extremities: Nontender, Edema - Nonpitting of the left lower leg, - - deformity and evidence of multiple surgeries of the left calf from a prior crush injury Skin: Normal color, No rash Neurological: Alert, Oriented x3, Cranial nerves II-XII grossly intact, Normal Strength, Normal Sensation Psychological: Normal affect, Normal Mood Diagnostic/Tx/Re-eval Chest X-Ray - ED: 2 View, Read by ED Physician, Read by Radiologist, No Acute Disease Clinical Impression(s) from Imaging Studies Chest X-Ray 09/29/19 10:21 IMPRESSION: Hyperinflation. The lungs are clear. Electronically Signed: Brenton Gaytan, at 10:54 EST , Service support , Laboratory Data 09/29/19 09/29/19 10:30 10:30 WBC 4.9 RBC 3.85 L Hgb 10.7 L Hct 33.8 L MCV 87.8 MCH 27.8 MCHC 31.7 L RDW Std Deviation 48.1 H RDW Coeff of Tomi 15.1 H Plt Count 312 MPV 9.2 Immature Gran % (Auto) 0.400 Neut % (Auto) 42.0 L Lymph % (Auto) 32.8 [place] % (Auto) 12.4 H Eos % (Auto) 10.6 H Baso % (Auto) 1.8 H Absolute Neuts (auto) 2.1 Absolute Lymphs (auto) 1.61 Nucleated RBC % 0 Sodium 141 Potassium 3.4 L Chloride 108 H Carbon Dioxide 29.0 Anion Gap 4 L BUN 9 Creatinine 0.87 Estim Creat Clear Calc 97.37 Est GFR (MDRD) Af Amer 115 Est GFR (MDRD) Non-Af 95 BUN/Creatinine Ratio 10.3 Glucose 79 Calcium 8.2 L Troponin I < 0.015 - Rhythm Strip Rhythm Strip: Sinus bradycardia Rate: 54 Ectopy: None - EKG Initial EKG Interpretation: Sinus Bradycardia, - - Bradycardia at a rate of 59 First-degree AV block with a IL interval of 216 QRS 94 QTc 445 Normal axis Flattening of the T wave in lead III Treatment: Aspirin Repeat Eval: Pain Free - Medical Decision Making Patient is evaluated with exertional chest pain. The pain last for about 30 minutes today. He is given aspirin in the emergency room. He is currently pain-free. EKG does not show any significant ST segment changes/abnormalities. Troponin is normal. Patient does have deformity of his left lower leg I did obtain an ultrasound to rule out a DVT. With a negative DVT study I do with a lower suspicion for PE I do not think a CTA or d-dimer is indicated at this time. Patient has some cardiac risk factors including hyperlipidemia and obesity. I do think he would benefit from further cardiac monitoring especially with the exertional nature of his chest pain. He is agreeable to this plan. He is stable for the general medical floor at time of disposition. ED Disposition - Plan for ED Patient: Disposition: Acute Care Hospital [facility] Diagnosis: Chest pain Referrals: Curt Ram MD [Primary Care Provider] -
[2019-09-29 10:35] LABS: Absolute Lymphocyte Count 1.61 X10^3/uL (0.83-4.51); Absolute Neutrophil Count 2.1 X10^3/uL (2.0-7.7); Basophil# 0.09 X10^3/uL; Basophil% 1.8 % (0-1); Eosinophil# 0.52 X10^3/uL; Eosinophils% 10.6 % (0-5); Hematocrit 33.8 % (40-54); Hemoglobin 10.7 g/dL (13.0-16.5); Lymphocyte # 1.61 X10^3/ul (4.0); Lymphocyte % 32.8 % (19-41); Mean Corp Hgb Conc 31.7 g/dL (32-36); Mean Corpuscular Hgb 27.8 pg (27.0-32.0); Mean Corpuscular Volume 87.8 fL (80-94); Mean Platelet Vol. 9.2 fl (6.2-12.0); Monocyte# 0.61 X10^3/uL; Monocyte% 12.4 % (0-10); NRBC Flagged by Analyzer 0 % (0-5); Neutrophil # 2.06 X10^3/uL (2.7-7.7); Platelet Count 312 K/mm3 (150-450); RBC Distribution Width CV 15.1 % (11.6-14.6); RBC Distribution Width SD 48.1 fl (35.1-43.9); Red Blood Count 3.85 M/mm3 (4.6-6.2); White Blood Count 4.9 K/mm3 (4.4-11.0)
[2019-09-29 10:52] LABS: Anion Gap 4 (5-15); BUN 9 mg/dL (7-18); BUN/Creat Ratio 10.3 RATIO (10-20); Calcium,Total 8.2 mg/dL (8.5-10.1); Chloride 108 mmol/L (98-107); Creatinine, Serum 0.87 mg/dL (0.70-1.30); EST Glomerular Filtration Rate 95 mL/min (>60); Est Glom Filt Rate - Afr Amer 115 mL/min (>60); Estimated Creatinine Clearance 97.37 ml/min; Glucose 79 mg/dL (74-106); Potassium 3.4 mmol/L (3.5-5.1); Sodium Level 141 mmol/L (136-145)
--- NOTE | 2019-09-29 11:35 | PCM.HP.STD ---
Problem List (1) Crush injury lower leg Status: Chronic (2) GERD (gastroesophageal reflux disease) Status: Chronic (3) BPH (benign prostatic hyperplasia) Status: Chronic (4) Hypothyroidism Status: Chronic (5) HLD (hyperlipidemia) Status: Chronic (6) Chest pain Status: Acute History of Present Illness Date of Admission: 09/29/19 Chief Complaint: Chest discomfort The patient is a 58 year old M with past medical history single for hypertension, dyslipidemia, hypothyroidism who presented with chest discomfort. Patient said to started a day prior to coming in he did experience some discomfort located in the retrosternal region prior to going to bed. He did notice this recurrence of his pain this a.m. while cleaning snow off his vehicle. He reports getting some relief with rest. Pain however recurred resulting in patient presented to the emergency department. Initial set of EKG and cardiac enzymes came back unremarkable subsequently admitted to a monitored bed for further management. Past Medical History Past Medical History (Chronic Problems): Chronic Problems Crush injury lower leg (Chronic) GERD (gastroesophageal reflux disease) (Chronic) BPH (benign prostatic hyperplasia) (Chronic) Hypothyroidism (Chronic) HLD (hyperlipidemia) (Chronic) Allergies No Known Allergies Allergy (Verified 09/29/19 09:54) Home Medications: Ambulatory Orders Medication Instructions Recorded Famotidine [Pepcid] 20 mg PO DAILY 05/18/16 Finasteride [Proscar] 5 mg PO DAILY 05/18/16 Pravastatin [Pravachol] 40 mg PO QHS 05/18/16 Aspirin E.C. [Ecotrin] 81 mg PO DAILY@0800 12/12/16 Cyanocobalamin (Vitamin B-12) 1,000 mcg PO DAILY 12/04/18 [Vitamin B-12] Fluoxetine HCl 40 mg PO DAILY 12/05/18 Labetalol [Trandate (Beta Jigar)] 100 mg PO BID 12/05/18 Levothyroxine [Synthroid] 75 mcg PO DAILY 12/05/18 Ferrous Sulfate [Iron] 325 mg PO DAILY 09/29/19 Surgical History: herniorrhaphy, - - crush injury repair. Psychiatric History: No pertinent psych hx Smoking Status: Former smoker Tobacco Use: Cigarettes - *Family History Maternal History Items: Cancer Paternal History Items: Hypertension Review of Systems Constitutional: Denies: Anorexia, Chills, Fever, Night Sweats, Weight Change HEENT: Denies: Head Aches, Sinus Congestion, Sinus Drainage Cardiovascular: Reports: Chest Pain. Denies: Orthopnea, Palpitations, Paroxysmal Noc. Dyspnea Respiratory: Denies: Cough, Shortness of breath at rest, Shortness of breath upon exertion, Sputum production Gastrointestinal: Denies: Abdominal Pain, Hematemesis, Hematochezia, Nausea, Melena, Vomiting Genitourinary: Denies: Dysuria, Frequency, Hematuria, Urgency Musculoskeletal: Denies: Joint Pain, Joint Tenderness Skin: Denies: Rash Neurological: Denies: Focal weakness, Numbness, Tingling Psychiatric: Denies: Homicidal Ideations, Suicidal Ideations Hematologic/ Lymphatic: Denies: Easy Bruising, Easy Bleeding VTE Information - Inpt Only VTE Present on Admission: No VTE Mechan Device Prophylaxis: None VTE Pharm Prophylaxis ordered?: Yes Patient Problems: Active and Suspected Problems Chest pain (Acute) Objective: GENERAL: cooperative HEENT: Atraumatic; EYES; Anicteric, Normal Conjunctiva NECK; supple, normal thyroid, RESPIRATORY: Diminished to auscultation CARDIOVASCULAR: Regular S1 S2, GI: soft, normoactive bowel sounds, : No Renal angle tenderness; EXTREMITIES: No edema, no clubbing, MUSCULOSKELETAL: no muscle waisting NEURO: Awake; no lateralizing signs. SKIN: No Rash PSYCH; Flat affect - Physical Exam Vitals/I&O's: Vital Signs Temp Pulse Resp BP Pulse Ox 98 F 54 L 18 152/97 H 98 09/29/19 09:52 09/29/19 09:52 09/29/19 09:52 09/29/19 09:52 09/29/19 09:52 Oxygen Delivery Method Room Air Weight: 113.398 kg Body Mass Index (BMI) 34.8 Laboratory Results 09/29/19 10:30: WBC 4.9, RBC 3.85 L, Hgb 10.7 L, Hct 33.8 L, MCV 87.8, MCH 27.8, MCHC 31.7 L, RDW Std Deviation 48.1 H, RDW Coeff of Tomi 15.1 H, Plt Count 312, MPV 9.2, Immature Gran % (Auto) 0.400, Neut % (Auto) 42.0 L, Lymph % (Auto) 32.8, [place] % (Auto) 12.4 H, Eos % (Auto) 10.6 H, Baso % (Auto) 1.8 H, Absolute Neuts (auto) 2.1, Absolute Lymphs (auto) 1.61, Nucleated RBC % 0 09/29/19 10:30: Sodium 141, Potassium 3.4 L, Chloride 108 H, Carbon Dioxide 29.0, Anion Gap 4 L, BUN 9, Creatinine 0.87, Estim Creat Clear Calc 97.37, Est GFR (MDRD) Af Amer 115, Est GFR (MDRD) Non-Af 95, BUN/Creatinine Ratio 10.3, Glucose 79, Calcium 8.2 L, Troponin I < 0.015 Assessment/Plan All Active Problems Cellulitis (Resolved) Chest pain (Acute) Acute respiratory insufficiency (Resolved) Hemoptysis (Resolved) CAP (community acquired pneumonia) (Resolved) Patient is a 58-year-old gentleman presented with chest pain 1. Chest pain ?Patient admitted to monitored bed ruling out FL with serial cardiac enzymes. Patient to undergo a nuclear stress test in a.m. if FL is ruled out to rule out myocardial ischemia 2. Hypertension ~ blood pressure controlled, home medications continued with dose adjustment as needed 3. Dyslipidemia ~patient is on statin therapy, continued at home dose 4. Hypothyroidism ~patient is on levothyroxine home dose continued 5. BPH ?Patient is on finasteride did continue 6. Obesity with BMI of 34.9 ?Weight loss advised 7. DVT prophylaxis ~ on enoxaparin Code Visit OBSV E&M: [id number] Initial observation care L3
--- NOTE | 2019-09-29 11:38 | NURSING ---
PCU CP KITMERVIN
--- NOTE | 2019-09-29 12:58 | EKG12_ITS ---
Test Reason : CP ADMISSION Blood Pressure : / mmHG Vent. Rate : 054 BPM Atrial Rate : 054 BPM P-R Int : 204 ms QRS Dur : 096 ms QT Int : 486 ms P-R-T Axes : -05 025 041 degrees QTc Int : 460 ms Sinus bradycardia Otherwise normal ECG No previous ECGs available Confirmed by ROOPA HORNE, ANITHA ([id number]), food editor INDIO HYDE ([id number] on 10/05/2019 12:56:44 PM Referred By: Yoel Duval Confirmed By:ANITA BLAS MD
[2019-09-29] MEDS: Labetalol 100 MG Tablet PO (18:19)
[2019-09-29] MEDS: Pravastatin 40 MG Tablet PO (21:11)
[2019-09-30] VITALS (8 sets, daily range): BP systolic 122–150; BP diastolic 65–89; PULSE 56–71; RESP 16–17; TEMP 36.4–36.8; O2SAT 95–98
[2019-09-30] MEDS: Levothyroxine 75 MCG Tablet PO (05:12)
[2019-09-30] MEDS: Famotidine 20 MG Tablet PO (05:12)
[2019-09-30] MEDS: Aspirin E.C. 81 MG Tablet PO (05:12)
[2019-09-30 05:43] LABS: Absolute Lymphocyte Count 1.97 X10^3/uL (0.83-4.51); Absolute Neutrophil Count 2.6 X10^3/uL (2.0-7.7); Basophil# 0.12 X10^3/uL; Eosinophil# 0.55 X10^3/uL; Eosinophils% 9.4 % (0-5); Hemoglobin 10.6 g/dL (13.0-16.5); Lymphocyte # 1.97 X10^3/ul (4.0); Lymphocyte % 33.5 % (19-41); Mean Corp Hgb Conc 32.1 g/dL (32-36); Mean Corpuscular Volume 87.1 fL (80-94); Mean Platelet Vol. 9.3 fl (6.2-12.0); Monocyte# 0.68 X10^3/uL; Monocyte% 11.6 % (0-10); NRBC Flagged by Analyzer 0 % (0-5); Neutrophil # 2.55 X10^3/uL (2.7-7.7); Neutrophil % 43.3 % (47-70); Platelet Count 288 K/mm3 (150-450); RBC Distribution Width CV 15.2 % (11.6-14.6); RBC Distribution Width SD 48.4 fl (35.1-43.9); Red Blood Count 3.79 M/mm3 (4.6-6.2); White Blood Count 5.9 K/mm3 (4.4-11.0)
--- NOTE | 2019-09-30 06:00 | EKG12_ITS ---
Test Reason : AM EKG Blood Pressure : / mmHG Vent. Rate : 059 BPM Atrial Rate : 059 BPM P-R Int : 198 ms QRS Dur : 092 ms QT Int : 472 ms P-R-T Axes : -10 006 022 degrees QTc Int : 467 ms Sinus bradycardia Otherwise normal ECG When compared with ECG of 29-SEP-2019 12:52, MANUAL COMPARISON REQUIRED, DATA IS UNCONFIRMED Confirmed by ROOPA HORNE, ANITHA ([id number]), sound editor INDIO HYDE ([id number]) on 10/05/2019 12:54:24 PM Referred By: Yoel Duval Confirmed By:ANITA BLAS MD
[2019-09-30 06:02] LABS: Anion Gap 6 (5-15); BUN 10 mg/dL (7-18); Calcium,Total 8.3 mg/dL (8.5-10.1); Chloride 111 mmol/L (98-107); Creatinine, Serum 0.83 mg/dL (0.70-1.30); EST Glomerular Filtration Rate 100 mL/min (>60); Est Glom Filt Rate - Afr Amer 121 mL/min (>60); Estimated Creatinine Clearance 102.06 ml/min; Glucose 86 mg/dL (74-106); Potassium 3.7 mmol/L (3.5-5.1); Sodium Level 143 mmol/L (136-145)
[2019-09-30] MEDS: Ferrous Sulfate 325 MG Tablet PO (10:46)
[2019-09-30] MEDS: Cyanocobalamin 500 MCG Tablet 1000 MCG PO (10:46)
[2019-09-30] MEDS: Finasteride 5 MG Tablet PO (10:47)
[2019-09-30] MEDS: FLUoxetine 20 MG Capsule 40 MG PO (10:47)
[2019-09-30] MEDS: Labetalol 100 MG Tablet PO (10:47)
--- NOTE | 2019-09-30 11:47 | CASEMGMT ---
Intro role of CM to patient and [facility] form explained re: Observation status for treatment of chest pain. Explained hospitalization will be paid per? insurance policy for Outpatient billing?and condition will continue to be evaluated for Inpt necessity. Also let pt know that [facility] sends paper in the billing packet with their phone number if questions arise. Discussed Pharmacy section of [facility] form and self administered medication guideline.? Pt verbalizes understanding and does not have further questions. Form signed and placed in chart, copy to pt. SANA ANG BSN CM
--- NOTE | 2019-09-30 14:34 | STRESSREP_ITS ---
Stress Test Report Date: 09/30/2019 Procedure: Pharmacologic stress nuclear imaging study Indications: Chest pain Consent: Per the patient Procedure: The patient underwent pharmacologic (Regadenoson) evaluation with a peak heart rate of 76 beats per minute (47 %predicted maximal heart rate) and a peak blood pressure of 138/96 mmHg. The baseline ECG demonstrated normal sinus rhythm. EKG during lexiscan infusion revealed no significant ischemic changes. EKG post infusion revealed no significant ischemic changes [There were no significant cardiac dysrhythmias pretest, during pharmacologic infusion, or recovery]. [There was no complaint of chest discomfort during pharmacologic infusion or recovery]. The examination was discontinued secondary to completion of protocol. Impression: 1. Lexiscan stress test test is negative for Lexiscan infusion induced EKG changes of ischemia. 2. Lexiscan stress test test is negative for Lexiscan infusion induced chest pain. 3. Results of the nuclear portion of the test is as below Myocardial perfusion imaging study: Technique: The patient was injected with 10 millicuries of technetium 99m Cardiolite and subsequently rest SPECT Cardiolite nuclear imaging was obtained in the horizontal long, vertical long, and short axis views. The patient underwent pharmacologic (Regadenoson) evaluation. Please see above for details. The patient was injected with 30 millicuries of technetium 99m Cardiolite and subsequently stress SPECT Cardiolite nuclear imaging was obtained in the horizontal long, vertical long, and short axis views. A gated Cardiolite study at peak stress was obtained. Interpretation: Rest and stress SPECT Cardiolite nuclear imaging status post realignment, karl lization, and attenuation correction demonstrate mildly decreased radioisotope uptake in the basal lateral wall with no associated regional wall motion abnormalities. There are no significant reversible defects suggestive of ischemia. Gated images reveal no significant regional wall motion abnormalities. The reported LVEF is 62 %. Impression: 1. There is no evidence of significant ischemia or infarction. 2. Estimated ejection fraction is 62%. This note was generated with [employer] software. It may contain incorrect words, spelling, and punctuation that were not noted in checking the note before signing.
--- NOTE | 2019-09-30 15:25 | DCINST_ITS ---
- Discharge Diagnoses Current Active Problems: Current Active and Chronic Problems Chest pain (Acute) You will use the following diet at home:: Regular Your food should be the consistency of: Regular Discharge Activity: Return to Normal Activity Instructions: CHEST PAIN, NonCardiac Allergies/Adverse Reactions: Allergies No Known Allergies Allergy (Verified 09/29/19 09:54) Medications to take at Discharge Famotidine [Pepcid] 20 mg PO DAILY 05/18/16 Finasteride [Proscar] 5 mg PO DAILY 05/18/16 Pravastatin [Pravachol] 40 mg PO QHS 05/18/16 Aspirin E.C. [Ecotrin] 81 mg PO DAILY@0800 12/12/16 Cyanocobalamin (Vitamin B-12) [Vitamin B-12] 1,000 mcg PO DAILY 12/04/18 Fluoxetine HCl 40 mg PO DAILY 12/05/18 Labetalol [Trandate (Beta Jigar)] 100 mg PO BID 12/05/18 Levothyroxine [Synthroid] 75 mcg PO DAILY 12/05/18 Ferrous Sulfate [Iron] 325 mg PO DAILY 09/29/19 Oxybutynin [Ditropan] 10 mg PO DAILY 09/29/19 Primary Care Physician: Curt Ram MD [Primary Care Provider] - Please follow up with your Primary Care Physician in: in 5-7 days Test Results: Test results from this visit will be discussed in further detail at your follow- up appointment, if applicable. Proposed Discharge Date: 09/30/19
--- NOTE | 2019-09-30 15:28 | DS.PCM_ITS ---
Discharge Date and Diagnosis - Problem List Patient Problems: Active and Suspected Problems Chest pain (Acute) Date of Admission: 09/29/19 Date of Discharge: 09/30/19 - Primary Discharge Diagnosis Active and Suspected Problems Chest pain (Acute) - Secondary Discharge Diagnosis Chronic Problems Crush injury lower leg (Chronic) GERD (gastroesophageal reflux disease) (Chronic) BPH (benign prostatic hyperplasia) (Chronic) Hypothyroidism (Chronic) HLD (hyperlipidemia) (Chronic) Hospital Course and Treatment Operations: None Summary of Care Provided: Patient is a 58-year-old gentleman presented with chest pain 1. Chest pain ?Patient admitted to monitored bed, did rule out myocardial infarction with serial cardiac enzymes and EKGs. Patient subsequently underwent a nuclear stress test which was negative for stress-induced ischemia. 2. Hypertension ~ blood pressure controlled, home medications continued with dose adjustment as needed 3. Dyslipidemia ~patient is on statin therapy, continued at home dose 4. Hypothyroidism ~patient is on levothyroxine home dose continued 5. BPH ?Patient is on finasteride did continue 6. Obesity with BMI of 34.9 ?Weight loss advised 7. DVT prophylaxis ~ on enoxaparin Patient Problems: Active and Suspected Problems Chest pain (Acute) - Physical Exam Vitals/I&O's: Vital Signs Temp Pulse Resp BP Pulse Ox 98.2 F 71 17 150/89 H 95 09/30/19 13:45 09/30/19 13:45 09/30/19 13:45 09/30/19 13:45 09/30/19 13:45 Oxygen Delivery Method Room Air Weight: 109.5 kg Body Mass Index (BMI) 33.6 Intake and Output for Last 24 Hours 09/28/19 09/29/19 09/30/19 23:59 23:59 23:59 Intake Total 1225 / 1225 510 / 510 Balance 1225 / 1225 510 / 510 General: Alert HEENT: Atraumatic Neck: Supple Cardiovascular: Regular rate Neurological: Neuro grossly intact Psych/Mental Status: Normal Affect Laboratory Results 09/29/19 16:50: Troponin I < 0.015 09/30/19 05:35: WBC 5.9, RBC 3.79 L, Hgb 10.6 L, Hct 33.0 L, MCV 87.1, MCH 28.0, MCHC 32.1, RDW Std Deviation 48.4 H, RDW Coeff of Tomi 15.2 H, Plt Count 288, MPV 9.3, Immature Gran % (Auto) 0.200, Neut % (Auto) 43.3 L, Lymph % (Auto) 33.5, Mcnairy % (Auto) 11.6 H, Eos % (Auto) 9.4 H, Baso % (Auto) 2.0 H, Absolute Neuts (auto) 2.6, Absolute Lymphs (auto) 1.97, Nucleated RBC % 0 09/30/19 05:35: Sodium 143, Potassium 3.7, Chloride 111 H, Carbon Dioxide 26.0, Anion Gap 6, BUN 10, Creatinine 0.83, Estim Creat Clear Calc 102.06, Est GFR (MDRD) Af Amer 121, Est GFR (MDRD) Non-Af 100, BUN/Creatinine Ratio 12.0, Glucose 86, Calcium 8.3 L Current Medications Acetaminophen (Tylenol) 650 mg PO Q6H PRN PRN PRN Reason: Pain Score 1-3/Temp > 100.7 F Al Hydroxide/Mg Hydroxide (Mylanta Ii) 30 ml PO Q6H PRN PRN PRN Reason: Gastric Burning Albuterol Sulfate (Ventolin Aerosols) 2.5 mg INHALATION Q2H PRN PRN PRN Reason: SOB/Wheezing Aspirin (Ecotrin) 81 mg PO DAILY@0800 [facility] Last Admin: 09/30/19 05:12 Dose: 81 mg Documented by: Cyanocobalamin (Vitamin B12) [facility] Admin: 09/30/19 10:46 Dose: 1,000 mcg Documented by: Enoxaparin Sodium (Lovenox) 40 mg SC DAILY [facility] Last Admin: 09/30/19 10:37 Dose: Not Given Documented by: Famotidine (Pepcid) 20 mg PO DAILY [facility] Last Admin: 09/30/19 05:12 Dose: 20 mg Documented by: Ferrous Sulfate (Ferrous Sulfate) 325 [facility] Last Admin: 09/30/19 10:46 Dose: 325 mg Documented by: Finasteride (Proscar) 5 mg PO DAILY [facility] Last Admin: 09/30/19 10:47 Dose: 5 mg Documented by: Fluoxetine HCl (Prozac) 40 mg PO DAILY [facility] Last Admin: 09/30/19 10:47 Dose: 40 mg Documented by: Guaifenesin (Robitussin) 20 ml PO Q4H PRN PRN PRN Reason: COUGH Labetalol HCl (Trandate) 100 mg PO BID [facility] Last Admin: 09/30/19 10:47 Dose: 100 mg Documented by: Levothyroxine Sodium (Synthroid) 75 mcg PO DAILY@0600 [facility] Last Admin: 09/30/19 05:12 Dose: 75 mcg Documented by: Melatonin (Melatonin) 3 mg PO QHS PRN PRN PRN Reason: INSOMNIA Morphine Sulfate () 4 mg IV Q3H PRN PRN PRN Reason: Pain Score 6-10/10 Nitroglycerin (Nitrostat) 0.4 mg SUBLINGUAL Q5M PRN PRN Reason: CARDIAC/CHEST PAIN Ondansetron HCl (Zofran) 4 mg IV Q8H PRN PRN PRN Reason: NAUSEA/VOMITING Oxycodone HCl (Oxyir) 5 mg PO Q4H PRN PRN PRN Reason: Pain Score 4-5/10 Pravastatin Sodium (Pravachol) 40 mg PO QHS [facility] Last Admin: 09/29/19 21:11 Dose: 40 mg Documented by: Psyllium Hydrophilic Mucilloid (Metamucil) 1 packet PO DAILY PRN PRN PRN Reason: Constipation Sodium Chloride () 10 - 40 ml IV UD PRN PRN Reason: SALINE FLUSH Discharge Diet: No Restrictions Discharge Activity: Return to Normal Activity Home Medications: Medications to take at Discharge Famotidine [Pepcid] 20 mg PO DAILY 05/18/16 Finasteride [Proscar] 5 mg PO DAILY 05/18/16 Pravastatin [Pravachol] 40 mg PO QHS 05/18/16 Aspirin E.C. [Ecotrin] 81 mg PO DAILY@0800 12/12/16 Cyanocobalamin (Vitamin B-12) [Vitamin B-12] 1,000 mcg PO DAILY 12/04/18 Fluoxetine HCl 40 mg PO DAILY 12/05/18 Labetalol [Trandate (Beta Jigar)] 100 mg PO BID 12/05/18 Levothyroxine [Synthroid] 75 mcg PO DAILY 12/05/18 Ferrous Sulfate [Iron] 325 mg PO DAILY 09/29/19 Oxybutynin [Ditropan] 10 mg PO DAILY 09/29/19 Primary Care Physician: Leanna,Curt, MD [Primary Care Provider] - Please follow up with your Primary Care Physician in: in 5-7 days Patient Instructions: CHEST PAIN, NonCardiac Disposition: Home Minutes spent on discharge:: 35 Patient Condition:: Stable Medical Necessity - Tobacco Use Smoking Status: Former smoker Tobacco Use: Cigarettes Meaningful Use Info Meaningful Use Diagnoses (Choose all that apply): None applicable Code Visit OBSV E&M: 60177 Observation care discharge
== END 2019-09-30 15:26 | disposition home health service (06) ==
LOC: ED 10:44 → PCU 11:47
PROVIDERS: Admitting Provider Internal Medicine; Emergency Provider Emergency Medicine; Family Provider Family Medicine; PCP Family Medicine; Referring Provider Internal Medicine; Visit Provider Internal Medicine
DX: R07.89 Other chest pain (principal); K21.9 Gastro-esophageal reflux disease without esophagitis; E78.5 Hyperlipidemia, unspecified; N40.0 Benign prostatic hyperplasia without lower urinary tract symptoms; E03.9 Hypothyroidism, unspecified; I10 Essential (primary) hypertension; E66.9 Obesity, unspecified; S87.82XD Crushing injury of left lower leg, subsequent encounter; X58.XXXD Exposure to other specified factors, subsequent encounter; Z79.899 Other long term (current) drug therapy; Z79.82 Long term (current) use of aspirin; Z87.891 Personal history of nicotine dependence; Z71.3 Dietary counseling and surveillance; Z68.34 Body mass index [BMI] 34.0-34.9, adult
CPT/HCPCS: 36415; 71046; 78452; 80048; 84484; 85025; 93005; 93017; 93971; 99218; 99251; 99285; A9500; A4216; G0378; G0463; J2785

== ENCOUNTER → 2023-11-15 | Outpatient (CLI) | payer MEDICARE, SELFPAY ==
--- NOTE | 2023-11-15 15:02 | ST.MBS ---
Modified Barium Swallow Patient Information Study Date: 11/15/23 Study Time: 13:00 Direct Billable Minutes: 83 Total Minutes procedure & reportin Diagnosis: R13.14 Referring Physician: Curt Ram Reason for Referral: Objectively assess swallow function, assess risk for aspiration, and determine recommendations for least restrictive diet textures and compensatory strategies to improve safety of swallow. Medical History: PMH: GERD managed with Pepcid, PNA (~2017 per ), surgery for brain aneurysm, memory difficulty per patient and , BPH, HLD (See EMR for additional PMH). The patient reports difficulty swallowing for the past two year; however, recently he feels his swallowing has gotten a little worse. He coughs consuming foods or drinks, but especially with hard, crunchy textures like potato chips. He has coughing with food or drink ~2X/month. He denies history of choking or sensation of retention of foods or drinks when swallowing. His PCP referred him for MBSS. Current Diet Ordered: Soft solids / Thin liquids Dentition: Edentulous (lower dentures are ill fitting, so he does not use them) and Upper Dentures Mental Status: Impaired (memory impairment per patient and ) Respiratory Status: Oxygenating on Room Air Penetration-Aspiration Scale Penetration-Aspiration Scale: OBJECTIVE ASSESSMENT OF SWALLOW FUNCTION (QUANTITATIVE ? PER TRIAL): PENETRATION / ASPIRATION SCALE (MONTES): 1 = does not enter airway 2 = enters airway/above vocal folds/ejected 3 = enters airway/above vocal folds/not ejected 4 = enters airway/contacts vocal folds/ejected 5 = enters airway/contacts vocal folds/not ejected 6 = enters airway/below vocal folds/ejected 7 = enters airway/below vocal folds/not ejected despite effort 8 = enters airway/below vocal folds/no effort VIDEOFLOROSCOPIC SCALE SCORE (MONTES): Grade I = aspiration of material that has penetrated into the laryngeal vestibule, intact cough reflex Grade II = aspiration < 10 % of the bolus, intact cough reflex Grade III = aspiration of < 10 % of the bolus, reduced cough reflex or aspiration of > 10 % of the bolus, intact cough reflex Grade IV = aspiration of > 10 % of the bolus, reduced cough reflex Penetration-Aspiration Scale Score Thin Liquid via teaspoon: Result: 1= does not enter airway Thin Liquid via teaspoon Trial 2: Result: 1= does not enter airway Thin Liquid via large single sip: cup: Result: 2= enter airway/above vocal folds/ejected [place] Thick Liquid via large single sip: cup: Result: 1= does not enter airway Pudding via teaspoon: Result: 1= does not enter airway Comment: Esophageal screen - Complete clearance. 1/2 Cookie: Result: 1= does not enter airway Thin Liquid via sequential sips:straw: Result: 2= enter airway/above vocal folds/ejected Oral Phase Labial Seal: No Labial Escape Tongue Control During Bolus Hold: Posterior escape of less than half of bolus (sequential straw) Bolus Preparation/Mastication: Slow prolonged chewing/mashing with complete recollection (Prolonged mastication due to no lower dentition with small, un-chewed pieces of cookie) Bolus Transport/Lingual Motion: Repetitive/disorganized tongue motion Oral Residue: Trace residue lining oral structures Pharyngeal Phase Initiation of Pharyngeal Swallow: Bolus head in pyriforms (sequential straw) Soft Palate Elevation: Trace column of contrast/air between soft palate and pharyngeal wall Laryngeal Elevation: Comp. Superior move thyroid cart w/comp. apprx arytenoid cart-epig pet Anterior Hyoid Excursion: Partial anterior movement Epiglottic Movement: Complete inversion Laryngeal Vestibule Closure at Height of Swallow: Incomplete; narrow column of air/contrast in laryngeal vestibule Pharyngeal Stripping Wave: Present - complete Pharyngoesophageal Segment Opening: Complete distension and complete duration; no obstruction of flow Tongue Base Retraction: Narrow column of contrast between tongue base & post. pharyngeal wall Pharyngeal Residue: Collection of residue within or on pharyngeal structures (sequential thin) Esophageal Phase Esophageal Clearance: Complete clearance Diagnosis/Impression Diagnosis: Mild oral dysphagia R13.10 Impression: The oral phase is primarily marked by... -Decreased bolus control with <1/2 of the bolus spilling posteriorly to the pyriforms prior to swallow onset observed with sequential sips of thin. -Slowed and repetitive tongue motion for A-P transport most notable with pudding. -Prolonged and decreased mastication with small pieces of cookie appearing un-chewed. Pharyngeal phase is grossly WNL. He has mildly decreased anterior hyoid excursion; however, good airway closure during the swallow with no aspiration. Recommendations Diet: Regular Textures (Easy to Chew textures IDDSI Level 7) and Thin Liquids Compensatory Strategies: Small Bites (Chew thoroughly), Small Sips, Slow Rate, Sitting upright, Remain sitting upright for 30 minutes after PO intake and Minimize/decrease distractions Supervision: Assist as needed (Patient lives with his , Jan) Recommend Repeat Modified Barium Swallow: No Need for Skilled Speech Therapy Services: Yes Comment: Please consider OP speech therapy orders for cognitive-linguistic evaluation. The patient reports impaired memory since surgery for brain aneurysm; however, and patient expressed concern that his memory has been worsening recently. Education Completed: 1. Described result of evaluation. Status Active ST Patient: Active Contact Information [facility] Speech Therapy:: Ligia Jackson M.A. CCC-FORENSICS ANALYST? Speech-Language Pathologist?? [facility]? [id number]?? [place] [address]?? [email or web address]?? [phone]??
--- OUTSIDE RECORDS SUMMARY | 2023-11-15 16:11 | XMS RPT_ITS | CCD ---
Author Name Unknown Address [address] [place] [address] Organization [facility] Care Team Providers Care Material Reprocessing Associate Name Role Phone Lane Lowery MD Primary Care Provider PREETI WILL Referring Unavailable LANE LOWERY Primary Care Unavailable PREETI WILL Attending Unavailable LANE LOWERY Primary Care Unavailable AMY FERNANDEZ Attending Unavailable LANE LOWERY Primary Care Unavailable AMY FERNANDEZ Referring Unavailable LANE LOWERY Primary Care Unavailable PREETI WILL Attending Unavailable LANE LOWERY Primary Care Unavailable PREETI WILL Referring Unavailable LANE LOWERY Primary Care Unavailable LANE LOWERY Primary Care Unavailable LANE LOWERY Referring Unavailable LANE LOWERY Primary Care Unavailable LANE LOWERY Referring Unavailable LANE LOWERY Primary Care Unavailable LANE LOWERY Attending Unavailable PREETI WILL Referring Unavailable LANE LOWERY Primary Care Unavailable Medications Current Medications Medication Drug Class(es) Dates Sig (Normalized) Sig (Original) doxycycline hyclate 100 mg oral tablet (3 sources) Tetracycline-clas s Drug Start: 02-04-2022 End: 02-14-2022 take 1 tablet by mouth twice daily doxycycline (VIBRA-TABS) 100 mg tablet Take 1 tablet by mouth twice daily for 10 days. 20 tablet 0 02/04/2022 02/14/2022 Active Completed/Discontinued Medications Medication Drug Class(es) Dates Sig (Normalized) Sig (Original) aspirin 81 mg delayed release oral tablet (20 sources) Platelet Aggregation Inhibitor, Nonsteroidal Anti-inflammatory Drug Start: 12-23-2012 take 1 tablet by mouth once daily aspirin, enteric coated (ASPIRIN, ENTERIC COATED) 81 mg EC tablet Take 1 tablet by mouth once daily. 0 12/23/2012 Active Problems Active Problems Problem Classification Problem Date Documented Date Episodic/Chronic Deficiency and other anemia (2 sources) Anemia; Translations: [Anemia, unspecified] Episodic Esophageal disorders (20 sources) Gastroesophageal reflux disease without esophagitis; Translations: [Gastro-esophageal reflux disease without esophagitis] Onset: 12-07-2011 08-20-2018 Chronic Essential hypertension (20 sources) Essential hypertension; Translations: [Essential (primary) hypertension] Onset: 03-22-2010 08-20-2018 Chronic Fluid and electrolyte disorders (1 source) Hypokalemia; Translations: [Hypokalemia] Episodic Genitourinary symptoms and ill-defined conditions (20 sources) Urge incontinence of urine; Translations: [Urge incontinence] Onset: 08-20-2018 08-20-2018 Chronic Mood disorders (20 sources) Major depression in remission; Translations: [Major depressive disorder, single episode, in full remission] Onset: 08-20-2018 08-20-2018 Chronic Other circulatory disease (20 sources) H/O: cardiovascular disease; Translations: [Personal history of other diseases of the circulatory system] Onset: 05-03-2011 08-20-2018 Episodic Other connective tissue disease (1 source) Swelling of lower limb; Translations: [Other specified soft tissue disorders] Episodic Other ear and sense organ disorders (1 source) Impacted cerumen of bilateral ears; Translations: [Impacted cerumen, bilateral] Episodic Other lower respiratory disease (1 source) Cough; Translations: [Cough] Episodic Other non-traumatic joint disorders (2 sources) Shoulder pain; Translations: [Pain in left shoulder] Episodic Other nutritional; endocrine; and metabolic disorders (20 sources) Gilbert's syndrome; Translations: [Gilbert syndrome] Onset: 05-08-2011 10-09-2021 Chronic Other nutritional; endocrine; and metabolic disorders (20 sources) Obese class I; Translations: [Obesity, unspecified] Onset: 08-20-2018 08-20-2018 Chronic Other screening for suspected conditions (not mental disorders or infectious disease) (1 source) Patient encounter status; Translations: [Encounter for screening for lipoid disorders] Episodic Other skin disorders (1 source) Localized swelling of left lower leg; Translations: [Localized swelling, mass and lump, left lower limb] Episodic Residual codes; unclassified (1 source) Other amnesia; Translations: [Memory difficulties] Onset: 10-28-2023 Episodic Thyroid disorders (20 sources) Acquired hypothyroidism; Translations: [Hypothyroidism, unspecified] Onset: 01-05-2016 08-20-2018 Chronic Unclassified (1 source) Acute midline low back pain without sciatica; Translations: [Acute midline low back pain without sciatica] Onset: 10-28-2023 Past or Other Problems Problem Classification Problem Date Documented Da te Episodic/Chronic Abdominal hernia (20 sources) Right inguinal hernia ; Translations: [Unilateral inguinal hernia, without obstruction or gangrene, not specified as recurrent] Onset: 0 04-25-2020 Episodic Deficiency and other anemia (20 sources) Nutritional anemia; Translations: [Vitamin B12 deficiency anemia, unspecified] Onset: 8 08-21-2018 Episodic Gastrointestinal hemorrhage (20 sources) Lower gastrointestinal hemorrhage; Translations: [Gastrointestinal hemorrhage, unspecified] Onset: 1 08-20-2018 Episodic Genitourinary symptoms and ill-defined conditions (20 sources) Urgent desire to urinate; Translations: [Urgency of urination] Onset: 1 08-20-2018 Episodic Hemorrhoids (20 sources) Internal hemorrhoids; Translations: [Other hemorrhoids] Onset: 0 04-25-2020 Episodic Nutritional deficiencies (20 sources) Cobalamin deficiency; Translations: [Deficiency of other specified B group vitamins] Onset: 8 05-23-2021 Episodic Other and unspecified benign neoplasm (20 sources) Benign neoplasm of stomach; Translations: [Benign neoplasm of stomach] Onset: 2 08-20-2018 Episodic Other circulatory disease (1 source) Personal history of other diseases of the circulatory system; Translations: [History of intracranial aneurysm] Onset: 8 Episodic Other diseases of kidney and ureters (20 sources) Acquired renal cystic disease; Translations: [Cyst of kidney, acquired] Onset: 1 08-20-2018 Episodic Other diseases of veins and lymphatics (20 sources) Varicocele; Translations: [Scrotal varices] Onset: 9 02-23-2019 Episodic Other male genital disorders (20 sources) Disorder of prostate; Translations: [Disorder of prostate, unspecified] Onset: 9 02-17-2019 Episodic Other male genital disorders (16 sources) Scrotal mass; Translations: [Other specified disorders of the male genital organs] Onset: 9 02-17-2019 Episodic Other male genital disorders (20 sources) Cyst of epididymis; Translations: [Cyst of epididymis] Onset: 9 02-23-2019 Episodic Other male genital disorders (20 sources) Disorder of male genital organ; Translations: [Hydrocele, unspecified] Onset: 9 02-23-2019 Episodic Other nervous system disorders (20 sources) Impairment of balance; Translations: [Other abnormalities of gait and mobility] Onset: 0 04-25-2020 Episodic Other nervous system disorders (20 sources) Abnormal gait; Translations: [Unspecified abnormalities of gait and mobility] Onset: 0 04-25-2020 Episodic Other skin disorders (20 sources) Sebaceous cyst of skin; Translations: [Sebaceous cyst] Onset: 9 02-17-2019 Episodic Screening and history of mental health and substance abuse codes (20 sources) Ex-smoker; Translations: [Personal history of nicotine dependence] Onset: 9 02-17-2019 Episodic Spondylosis; intervertebral disc disorders; other back problems (20 sources) Neck pain; Translations: [Cervicalgia] Onset: 6 08-20-2018 Episodic Results Test Name Value Interpretation Reference Range Facil ity Vital Signs Date Time Vital Sign Value Performing Clinician Chapis doe 12-27-2022 17:36-0400 Body weight 106.14 kg Preeti Will APRN.CNP Work Phone: [facility] 12-27-2022 17:36-0400 Diastolic blood pressure 90 mm[Hg] Preeti Will APRN.CNP Work Phone: [facility] 12-27-2022 17:36-0400 Heart rate 62 /min Preeti Will APRN.CNP Work Phone: [facility] 12-27-2022 17:36-0400 Respiratory rate 14 /min Preeti Will APRN.CNP Work Phone: [facility] 12-27-2022 17:36-0400 Systolic blood pressure 146 mm[Hg] Preeti Knoble MANAGER INSTALLATION.DRAFTING ENGINEER Work Phone: [facility] 10-25-2022 16:23-0500 Body weight 107.96 kg Preeti Will MANAGER INSTALLATION.DRAFTING ENGINEER Work Phone: [facility] 10-25-2022 16:23-0500 Diastolic blood pressure 86 mm[Hg] Preeti Will MANAGER INSTALLATION.DRAFTING ENGINEER Work Phone: [facility] 10-25-2022 16:23-0500 Heart rate 58 /min Preeti Will MANAGER INSTALLATION.DRAFTING ENGINEER Work Phone: [facility] 10-25-2022 16:23-0500 Respiratory rate 16 /min Preeti Will MANAGER INSTALLATION.DRAFTING ENGINEER Work Phone: [facility] 10-25-2022 16:23-0500 Systolic blood pressure 140 mm[Hg] Preeti Will MANAGER INSTALLATION.DRAFTING ENGINEER Work Phone: [facility] 10-03-2022 18:30-0500 Diastolic blood pressure 100 mm[Hg] Lane Lowery MD Work Phone: [facility] 10-03-2022 18:30-0500 Systolic blood pressure 158 mm[Hg] Lane Lowery MD Work Phone: [facility] 10-03-2022 17:51-0500 Body height 178.[address] Lowery MD Work Phone: [facility] 10-03-2022 17:51-0500 Body weight 105.[address] Lowery MD Work Phone: [facility] 10-03-2022 17:51-0500 Heart rate 54 /min Lane Lowery MD Work Phone: [facility] 10-03-2022 17:51-0500 Respiratory rate 16 /min Lane Lowery MD Work Phone: [facility] 04-03-2022 14:29-0400 Body temperature 97.39 [degF] Enmanuel Cano PA-C Work Phone: [facility] 04-03-2022 14:29-0400 Body weight 109.77 kg Enmanuel Cano PA-C Work Phone: [facility] 04-03-2022 14:29-0400 Diastolic blood pressure 82 mm[Hg] Enmanuel Cano PA-C Work Phone: [facility] 04-03-2022 14:29-0400 Heart rate 56 /min Enmanuel Cano PA-C Work Phone: [facility] 04-03-2022 14:29-0400 Respiratory rate 20 /min Enmanuel Cano PA-C Work Phone: [facility] 04-03-2022 14:29-0400 Systolic blood pressure 120 mm[Hg] Enmanuel Cano PA-C Work Phone: [facility] 03-01-2022 14:56-0400 Body temperature 97.81 [degF] Dilcia Boland MANAGER INSTALLATION.DRAFTING ENGINEER Work Phone: [facility] 03-01-2022 14:56-0400 Body weight 111.77 kg Dilcia Boland MANAGER INSTALLATION.DRAFTING ENGINEER Work Phone: [facility] 03-01-2022 14:56-0400 Diastolic blood pressure 90 mm[Hg] Dilcia Boland MANAGER INSTALLATION.DRAFTING ENGINEER Work Phone: [facility] 03-01-2022 14:56-0400 Heart rate 76 /min Dilcia Boland MANAGER INSTALLATION.DRAFTING ENGINEER Work Phone: [facility] 03-01-2022 14:56-0400 Respiratory rate 21 /min Dilcia Boland MANAGER INSTALLATION.DRAFTING ENGINEER Work Phone: [facility] 03-01-2022 14:56-0400 SaO2% (BldA) [Mass fraction] 98 % Dilcia Boland MANAGER INSTALLATION.DRAFTING ENGINEER Work Phone: [facility] 03-01-2022 14:56-0400 Systolic blood pressure 130 mm[Hg] Dilcia Boland MANAGER INSTALLATION.DRAFTING ENGINEER Work Phone: [facility] 02-04-2022 14:10-0400 Body temperature 98.8 [degF] Aylin Lyons APRN.DRAFTING ENGINEER Work Phone: [facility] 02-04-2022 14:10-0400 Body weight 108.86 kg Aylin Lyons APRN.DRAFTING ENGINEER Work Phone: [facility] 02-04-2022 14:10-0400 Diastolic blood pressure 74 mm[Hg] Aylin Lyons APRN.DRAFTING ENGINEER Work Phone: [facility] 02-04-2022 14:10-0400 Heart rate 80 /min Aylin Lyons APRN.DRAFTING ENGINEER Work Phone: [facility] 02-04-2022 14:10-0400 Respiratory rate 18 /min Aylin Lyons APRN.DRAFTING ENGINEER Work Phone: [facility] 02-04-2022 14:10-0400 SaO2% (BldA) [Mass fraction] 95 % Aylin Lyons APRN.DRAFTING ENGINEER Work Phone: [facility] 02-04-2022 14:10-0400 Systolic blood pressure 112 mm[Hg] Aylin Lyons APRN.DRAFTING ENGINEER Work Phone: [facility] Encounters Encounter Date Encounter Type Care Provider Facility Start: 10-28-2023 End: 10-29-2023 ambulatory [facility] Facility:[facility] Start: 10-23-2023 End: 10-23-2023 [facility] Facility:[facility] Start: 04-22-2023 Refill Preeti delgadillo APRN.CNP Work Phone: [facility] Procedures Date Procedure Procedure Detail Performing Clinician Start: 04-18-2023 Ct head/brain w/o co ntrast material Preeti Will APRN.DRAFTING ENGINEER Work Phone: Start: 10-23-2022 Lipid 1996 panel - S anay or Plasma Ct (I-Stat) Work Phone: Start: 04-06-2019 Colonoscopy Enmanuel reid PA-C Work Phone: Plan of Treatment Date Care Activity Detail Author Start: 04-06-2029 Colonoscopy COLONOSCOPY [facility] Start: 04-06-2029 COLORECTAL CANCER SCREENING COLORECTAL CANCER SCREENING [facility] Start: 04-02-2028 PROSTATE CANCER SCRE ENING DISCUSSION PROSTATE CANCER SCREENING DISCUSSION [facility] Start: 10-23-2027 Lipid 1996 panel - S anay or Plasma Lipid Screening [facility] Start: 10-23-2027 LIPID SCREEN LIPID SCREEN [facility] Start: 10-23-2027 PROSTATE CANCER SCRE ENING DISCUSSION PROSTATE CANCER SCREENING DISCUSSION [facility] Start: 04-03-2027 LIPID SCREEN LIPID SCREEN [facility] Start: 04-03-2027 PROSTATE CANCER SCRE ENING DISCUSSION PROSTATE CANCER SCREENING DISCUSSION [facility] Start: 03-23-2027 PROSTATE CANCER SCRE ENING DISCUSSION PROSTATE CANCER SCREENING DISCUSSION [facility] Start: 05-24-2026 LIPID SCREEN LIPID SCREEN [facility] Start: 05-24-2026 PROSTATE CANCER SCRE ENING DISCUSSION PROSTATE CANCER SCREENING DISCUSSION [facility] Start: 10-23-2025 DIABETES SCREEN DIABETES SCREEN [facility] Start: 10-23-2025 Diabetes Screening Diabetes Screenin g [facility] Start: 04-03-2025 DIABETES SCREEN DIABETES SCREEN [facility] Start: 03-01-2025 DIABETES SCREEN DIABETES SCREEN [facility] Start: 10-03-2024 DIABETES SCREEN DIABETES SCREEN [facility] Start: 04-04-2024 ANNUAL PCP TEAM CUSTOMER COUNTER ASSOCIATE DUSTIN DISEASE VISIT ANNUAL PCP TEAM CHRONIC DISEASE VISIT [facility] Start: 04-04-2024 BP CONTROLLED (<130/80) BP CONTROLLE D (<130/80) [facility] Start: 12-28-2023 ANNUAL PCP TEAM CUSTOMER COUNTER ASSOCIATE DUSTIN DISEASE VISIT ANNUAL PCP TEAM CHRONIC DISEASE VISIT [facility] Start: 10-25-2023 ANNUAL PCP TEAM CUSTOMER COUNTER ASSOCIATE DUSTIN DISEASE VISIT ANNUAL PCP TEAM CHRONIC DISEASE VISIT [facility] Start: 10-03-2023 ANNUAL PCP TEAM CUSTOMER COUNTER ASSOCIATE DUSTIN DISEASE VISIT ANNUAL PCP TEAM CHRONIC DISEASE VISIT [facility] Start: 10-03-2023 SHINGRIX VACCINE (1 of 2) SHINGRIX V ACCINE (1 of 2) [facility] Immunizations Immunization Date Immunization Notes Care Provider Cele gillette 08-07-2022 influenza, seasonal, injectable Lane Lowery MD Work Phone: [facility] Work Phone: 08-07-2022 influenza virus vaccine, unspecified formulation Ct (I-Stat) Work Phone: [facility] 09-08-2021 COVID-19 vaccine, ag e 12+ yr ([employer] - PURPLE TOP) Enmanuel Cano PA-C Work Phone: [facility] 08-18-2021 influenza, injectabl e, quadrivalent, preservative free Enmanuel Cano PA-C Work Phone: [facility] 08-06-2020 Seasonal, quadrivale nt, recombinant, injectable influenza vaccine, preservative free Enmanuel Cano PA-C Work Phone: [facility] 08-19-2019 Seasonal, quadrivale nt, recombinant, injectable influenza vaccine, preservative free Enmanuel Cano PA-C Work Phone: [facility] 08-06-2018 influenza, injectabl e, quadrivalent, contains preservative Enmanuel Cano PA-C Work Phone: [facility] 07-24-2018 influenza, injectabl e, quadrivalent, preservative free Enmanuel Cano PA-C Work Phone: [facility] 06-16-2018 influenza, seasonal, injectable, preservative free Enmanuel Cano PA-C Work Phone: [facility] 08-22-2017 influenza, injectabl e, quadrivalent, preservative free Enmanuel Cano PA-C Work Phone: [facility] 08-22-2017 influenza, seasonal, injectable Enmanuel Cano PA-C Work Phone: [facility] 12-13-2016 influenza, seasonal, injectable, preservative free Enmanuel Cano PA-C Work Phone: [facility] 04-05-2009 tetanus toxoid, redu lilliam diphtheria toxoid, and acellular pertussis vaccine, adsorbed Enmanuel Cano PA-C Work Phone: [facility] Payers Date Payer Category Payer Medicare HUMANA MEDICARE HU[employer]NA MEDICARE PPO [id number] 2021-Present [phone] [address] [address] [place] [id number] PPO [id number] 2021 Medicare HUMANA MEDICARE HU[employer]NA MEDICARE PPO [id number] 2021-Present [phone] [address] [address] [place] [address] PPO [id number] 2021 Medicare [id number] Social History Date Type Detail Facility Start: 06-06-2011 End: 10-03-2022 Tobacco smoking status NHIS Ex-smoker [facility] End: 10-14-1996 History of tobacco use Current smoker [facility] End: 10-14-1996 History of tobacco use Cigarette Smoker [facility] Start: 12-24-2021 End: 04-02-2023 Alcohol intake Current non-drinker of alcohol (finding) [facility] Start: 04-25-2020 End: 10-03-2021 History SDOH Alcohol Frequency 1 [facility] Start: 04-25-2020 History SDOH Social Connections Get Together 3 [facility] Start: 04-25-2020 End: 10-03-2021 History SDOH Social Connections Membership 2 [facility] Start: 04-25-2020 History SDOH Financial 4 [facility] Start: 04-25-2020 Education 12 [facility] Start: 1960 Sex Assigned At Not on file C [facility] Start: 01-25-2022 End: 04-03-2022 Exposure to SARS-CoV-2 (event) Not sure [facility] Start: 06-06-2011 End: 09-18-2020 Cigarettes smoked current (pack per day) - Reported 1 [facility] Work Phone: Start: 06-06-2011 End: 10-03-2022 Tobacco use and exposure Smokeless tobacco non-user [facility] Start: 09-18-2020 End: 04-02-2023 Tobacco use panel [facility] Work Phone: Adult Depression Scr eening Assessment 1 [facility] Work Phone: Do you belong to any clubs or organizations such as catholic groups, unions, fraternal or athletic groups, or school groups? No [facility] Are you now , , , , never or living with a partner? [facility] How often to you hav e a drink containing alcohol? Never [facility] Work Phone: How hard is it for y ou to pay for the very basics like food, housing, medical care, and heating Not very hard [facility] Do you feel stress - tense, restless, nervous, or anxious, or unable to sleep at night because your mind is troubled all the time - these days [OSQ] Only a little [facility] (I/We) worried wheth er (my/our) food would run out before (I/we) got money to buy more. Never true [facility] Clinical Notes 01-22-2012 to 10-28-2023 Telephone Encounter - Enmanuel Cano PA-C - 04/22/2023 2:23 PM EDTTelephone Encounter - Sharmaine Lyons MA - 04/22/2023 9:17 AM Juliette Mcfarland RT(R) - 04/18/2023 2:00 PM EDT Note Date & Type Note Facility 10-28-2023 Note HNO ID: [id number] Author: HASMUKH KEYS RT(R) Service: ? Author Type: Job Placement Counselor Type: Progress Notes Filed: 10/28/2023 11:47 Note Text: Radiology Service Progress Note PATIENT NAME: General Blake Buckner DATE OF SERVICE: October 28, 2023 TIME: 11:13 AM PATIENT IDENTITY VERIFICATION COMPLETED USING TWO (2) IDENTIFIERS: Name and Date of confirmed by patient verbally. FALL SCREENING: Has the patient had 2 falls in the last year or 1 fall with injury or currently using an Ambulatory Assistive Device (Walker, Cane, Wheelchair, Crutches, etc.)? No PATIENT GENDER DATA: Male PATIENT RELEVANT IMPLANT DATA REVIEWED: Yes RADIOLOGY DEPARTMENT: General X-ray: Exam(s) Completed: Spine X-Ray(s): Lumbar AP / LAT / L5-S1 / OBL Lower Extremity X-Ray(s): Knee, AP / Lat / Tunne / Merchant Right PERIPHERAL IV DATA: Not applicable SIGNED BY: Hasmukh Keys, RT(R) October 28, 2023 11:13 AM [facility] 10-23-2023 Note HNO ID: [id number] Author: LANE LOWERY MD Service: ? Author Type: Physician Type: Progress Notes Filed: 10/29/2023 21:36 Note Text: Chief Complaint Patient presents with: Dizziness HPI General Blake Buckner is a 63 year old male who presents here today for: 1) Dizziness when walking. This has been ongoing off/on since summer time. Noticing losing balance with it. Describes as feeling of being off balance. Does not come on with changes in position. Having ataxia. No falls with this. No vision changes. No significant hearing changes. No headaches, No facial drooping, slurring of speech, drooling. Denies numbness or weakness in the upper or lower extremities. No urinary incontinence. 2) Sometimes having chocking when trying to swallow food and liquids. Does not describe a sensation of foods getting stuck. 3) Patient has noted some memory issues. has noted this as well 4) Right leg pain - started about 1 week ago (knee) no known injury. Notes some swelling. No erythema or warmth 5) Lower back pain - doing forward bends when sitting in a chair because he cannot do sit ups because it hurts his back. Walks with a limp but not knew due to the chronic issue with the left lower ext. Past medical history, appointments, medications, allergies reviewed. 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 Hydrocele, bilateral 02/23/2019 US 02/2019: Inguinal hernia Injury, other and unspecified 1996 Crush injury in 1996 to left leg - multiple reconstructive surgeries including rectus flap Internal hemorrhoids 04/25/2020 Left varicocele 02/23/2019 US 02/2019: LGI bleed 05/18/2011 Major depressive disorder in remission (HCC) 08/20/2018 Medicare annual wellness visit, subsequent 02/17/2019 Medicare part B: 03/14/2013 last done: 04/25/2020 MRSA pneumonia (HCC) 12/12/2016 admitted [facility], + sputum for MRSA Neck pain 05/15/2016 Nocturia 06/21/2011 OAB (overactive bladder) Obesity, Class I, BMI 30-34.9 08/20/2018 Renal cyst, acquired 06/21/2011 Sebaceous cyst 02/17/2019 Small right lower back Urge incontinence 08/20/2018 Urgency of micturation 06/21/2011 Urinary calculus, unspecified Renal stones Vitamin B12 deficiency 08/21/2018 Previous Surgical History PAST SURGICAL HISTORY Procedure Laterality Date COLONOSCOPY FLX DX W/COLLJ SPEC WHEN PFRMD 06/01/11 COLONOSCOPY FLX DX W/COLLJ SPEC WHEN PFRMD 04/06/2018 repeat 10 years DECOMPRESS ANT/LAT+POST LEG CMPART 1996 6 operations - traumatic leg injury (Left) EGD TRANSORAL BIOPSY SINGLE/MULTIPLE 12/07/11 EGD TRANSORAL BIOPSY SINGLE/MULTIPLE 01/22/12 resolved esophagitis, improved gastritis ESOPHAGOGASTRODUODENOSCOPY TRANSORAL DIAGNOSTIC 04/06/2018 EGD LEXISCAN STRESS TEST 09/30/2019 Negative RPR 1ST INGUN HRNA AGE 4 YRS/> REDUCIBLE bilater SIMPLE INTRACRANIAL ARYSM CAROTID CIRCULATION 2004 Intracranial aneurysm -- [facility] Family History FAMILY HISTORY Problem Relation Age of Onset Cancer Mother Headache Mother Hypertension Mother Psychiatry Mother DEPRESSION Cancer Father Headache Father Hypertension Father Hearing Loss Father Psychiatry Father DEPRESSION None Brother Alcohol/Drug Brother Psychiatry Sister DEPRESSION Psychiatry Brother DEPRESSION Psychiatry Maternal Grandmother DEPRESSION Osteoporosis Sister Colon Cancer Other no first-degree Coronary Artery Disease Other none Patient Allergies ALLERGIES No Known Allergies Current Medications Current Outpatient Medications on File Prior to Visit Medication Sig levothyroxine (LEVOXYL) 150 mcg tablet Take 1 tablet by mouth once daily. Take on empty stomach. For Thyroid. FLUoxetine (PROZAC) 10 mg capsule TAKE 1 CAPSULE ONE TIME DAILY. TAKE IN ADDITION TO 40MG CAPSULE FOR TOTAL DAILY DOSE OF 50MG. Tadalafil (CIALIS) 5 mg tablet Take 1 tablet by mouth as needed. pravastatin (PRAVACHOL) 40 mg tablet Take 1 tablet by mouth daily at bedtime. finasteride (PROSCAR) 5 mg tablet Take 1 tablet by mouth once daily. oxybutynin ER (DITROPAN XL) 10 mg 24 hr tablet Take 1 tablet by mouth o (more content not included)... [facility] 04-22-2023 Miscellaneous Notes Please help set up wellness in oct. Patient has been identified by name and date of : Yes Requested Prescriptions Pending Prescriptions Disp Refills FLUoxetine (PROZAC) 10 mg capsule [Pharmacy Med Name: FLUOXETINE HYDROCHLORIDE 10 MG Capsule] 90 capsule 1 Sig: TAKE 1 CAPSULE ONE TIME DAILY. TAKE IN ADDITION TO 40MG CAPSULE FOR TOTAL DAILY DOSE OF 50MG. RX INSTRUCTIONS: Patient aware RX will be sent to pharmacy. No need to notify patient. Sharmaine Lyons MA [place] 03/2023 Nov; Patient needs an appointment for wellness exam 10/04/2023 - l/m Last refill; 01/2023 documented in this encounter [facility] 04-19-2023 Miscellaneous Notes Spouse (Jan) calls and notified of results. Jan verbalizes understanding. Anabel Hester RN Left message for patient to return call to office Keshia Root Cma Please let patient know his TSH is normal. documented in this encounter [facility] 04-18-2023 Note HNO ID: [id number] Author: RT Malachi(R) Service: ? Author Type: Job Placement Counselor Type: Progress Notes Filed: 04/18/2023 3:22 PM Note Text: Radiology Service Progress Note PATIENT NAME: General Blake Buckner DATE OF SERVICE: April 18, 2023 TIME: 3:22 PM PATIENT IDENTITY VERIFICATION COMPLETED USING TWO (2) IDENTIFIERS: Name and Date of confirmed by patient verbally. FALL SCREENING: Has the patient had 2 falls in the last year or 1 fall with injury or currently using an Ambulatory Assistive Device (Walker, Cane, Wheelchair, Crutches, etc.)? No PATIENT GENDER DATA: Male PATIENT RELEVANT IMPLANT DATA REVIEWED: Yes RADIOLOGY DEPARTMENT: CT; Exam(s) Completed: Brain PERIPHERAL IV DATA: Not applicable SIGNED BY: RT Miranda(R) April 18, 2023 3:22 PM [facility] 04-18-2023 Miscellaneous Notes Call placed to patient and spouse (Jan) answered. Message left with Jan with results. Patient to phone back if any questions. Anabel Hester RN Please let patient know his Ct is negative for acute findings. documented in this encounter [facility] 04-18-2023 History of Presen t illness Narrative Radiology Service Progress Note PATIENT NAME: General Blake Buckner DATE OF SERVICE: April 18, 2023 TIME: 3:22 PM PATIENT IDENTITY VERIFICATION COMPLETED USING TWO (2) IDENTIFIERS: Name and Date of confirmed by patient verbally. FALL SCREENING: Has the patient had 2 falls in the last year or 1 fall with injury or currently using an Ambulatory Assistive Device (Walker, Cane, Wheelchair, Crutches, etc.)? No PATIENT GENDER DATA: Male PATIENT RELEVANT IMPLANT DATA REVIEWED: Yes RADIOLOGY DEPARTMENT: CT; Exam(s) Completed: Brain PERIPHERAL IV DATA: Not applicable SIGNED BY: RT Miranda(R) April 18, 2023 3:22 PM documented in this encounter [facility] 04-04-2023 Note HNO ID: [id number] Author: Preeti Will APRN.DRAFTING ENGINEER Service: ? Author Type: Nurse Practitioner Type: Progress Notes Filed: 04/04/2023 5:36 PM Note Text: Chief Complaint Patient presents with: 6 Month Exam HPI General Blake Buckner is a 62 year old male who presents here today for Above Complaints.. Patient presents for routine follow up. Patient states he is doing well however he has had trouble with erection dysfunction and is requesting medication for this. Past medical history, appointments, medications, allergies reviewed. 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 Hydrocele, bilateral 02/23/2019 US 02/2019: Inguinal hernia Injury, other and unspecified 1996 Crush injury in 1996 to left leg - multiple reconstructive surgeries including rectus flap Internal hemorrhoids 04/25/2020 Left varicocele 02/23/201902/2019: LGI bleed 05/18/2011 Major depressive disorder in remission (HCC) 08/20/2018 Medicare annual wellness visit, subsequent 02/17/2019 Medicare part B: 03/14/2013 last done: 04/25/2020 MRSA pneumonia (HCC) 12/12/2016 admitted [facility], + sputum for MRSA Neck pain 05/15/2016 Nocturia 06/21/2011 OAB (overactive bladder) Obesity, Class I, BMI 30-34.9 08/20/2018 Renal cyst, acquired 06/21/2011 Sebaceous cyst 02/17/2019 Small right lower back Urge incontinence 08/20/2018 Urgency of micturation 06/21/2011 Urinary calculus, unspecified Renal stones Vitamin B12 deficiency 08/21/2018 Previous Surgical History PAST SURGICAL HISTORY Procedure Laterality Date COLONOSCOPY FLX DX W/COLLJ SPEC WHEN PFRMD 06/01/11 COLONOSCOPY FLX DX W/COLLJ SPEC WHEN PFRMD 04/06/2018 repeat 10 years DECOMPRESS ANT/LAT+POST LEG CMPART 1996 6 operations - traumatic leg injury (Left) EGD TRANSORAL BIOPSY SINGLE/MULTIPLE 12/07/11 EGD TRANSORAL BIOPSY SINGLE/MULTIPLE 01/22/12 resolved esophagitis, improved gastritis ESOPHAGOGASTRODUODENOSCOPY TRANSORAL DIAGNOSTIC 04/06/2018 EGD LEXISCAN STRESS TEST 09/30/2019 Negative RPR 1ST INGUN HRNA AGE 4 YRS/> REDUCIBLE bilater SIMPLE INTRACRANIAL ARYSM CAROTID CIRCULATION 2004 Intracranial aneurysm -- [facility] Family History FAMILY HISTORY Problem Relation Age of Onset Cancer Mother Headache Mother Hypertension Mother Psychiatry Mother DEPRESSION Cancer Father Headache Father Hypertension Father Hearing Loss Father Psychiatry Father DEPRESSION None Brother Alcohol/Drug Brother Psychiatry Sister DEPRESSION Psychiatry Brother DEPRESSION Psychiatry Maternal Grandmother DEPRESSION Osteoporosis Sister Colon Cancer Other no first-degree Coronary Artery Disease Other none Patient Allergies ALLERGIES No Known Allergies Current Medications Current Outpatient Medications on File Prior to Visit Medication Sig pravastatin (PRAVACHOL) 40 mg tablet Take 1 tablet by mouth daily at bedtime. levothyroxine (LEVOXYL) 150 mcg tablet Take 1 tablet by mouth once daily. Take on empty stomach. For Thyroid. finasteride (PROSCAR) 5 mg tablet Take 1 tablet by mouth once daily. oxybutynin ER (DITROPAN XL) 10 mg 24 hr tablet Take 1 tablet by mouth once daily. FLUoxetine (PROZAC) 40 mg capsule TAKE 1 CAPSULE ONCE DAILY. TAKE WITH 10MG CAPSULE FOR TOTAL DAILY DOSE OF 50MG. labetalol (TRANDATE) 100 mg tablet TAKE 1 TABLET TWICE DAILY FLUoxetine (PROZAC) 10 mg capsule Take 1 capsule by mouth once daily. Take in addition to the 40mg dose for total daily dose of 50mg. cyanocobalamin (VITAMIN B-12) 1,000 mcg tab Take 2 tablets by mouth once daily. potassium chloride (KLOR-CON 10) 10 mEq tablet Take 2 tablets by mouth twice daily. famotidine (PEPCID) 20 mg tablet Take 1 tablet by mouth once daily. ferrous sulfate 325 mg (65 mg iron) tablet Take 1 tablet by mouth daily with breakfast. aspirin, enteric coated (ASPIRIN, ENTERIC COATED) 81 mg EC tablet Take 1 tablet by mouth once daily. No current facility-administered medications on file prior to visit. Social History Social History Tobacco Use Smoking status: Former Packs/day: 1.00 Years: 20.00 P (more content not included)... [facility] 04-02-2023 Note HNO ID: [id number] Author: Amy Fernandez PA-C Service: ? Author Type: Physician Peer Health Promoter Type: Progress Notes Filed: 04/02/2023 3:50 PM Note Text: FORMERLY [facility], [facility] ESTABLISHED PATIENT CLINIC NOTE Some elements copied from his previous note, which have been updated where appropriate, and all reflect current medical decision making from date of this visit. SERVICE DATE: 04/02/2023 SERVICE TIME: 2:32 PM NAME: General Blake Buckner CHIEF COMPLAINT: BPH annual visit HISTORY OF PRESENT ILLNESS: General Blake Buckner is a 62 year old male an established patient following up for BPH annual visit The patient reports no new LUTS if takes medication LABS: Hematocrit (%) Date Value 10/23/2022 39.1 05/22/2022 37.7 04/03/2022 38.4 03/01/2022 38.8 10/03/2021 40.1 05/24/2021 40.6 11/10/2020 41.5 04/25/2020 39.7 PSA (ng/mL) Date Value 10/23/2022 0.34 04/03/2022 0.64 03/23/2022 0.89 05/24/2021 0.29 04/25/2020 0.34 02/06/2019 0.51 PSA Screening (ng/mL) Date Value 12/21/2014 0.54 09/26/2013 0.43 No results found for: TESTOST PSA (ng/mL) Date Value 10/23/2022 0.34 04/03/2022 0.64 03/23/2022 0.89 05/24/2021 0.29 04/25/2020 0.34 02/06/2019 0.51 PSA Screening (ng/mL) Date Value 12/21/2014 0.54 09/26/2013 0.43 Creatinine Date Value Ref Range Status 10/23/2022 0.90 0.73 - 1.22 mg/dL Final 04/03/2022 0.76 0.73 - 1.22 mg/dL Final 03/01/2022 0.79 0.73 - 1.22 mg/dL Final 10/03/2021 0.90 0.73 - 1.22 mg/dL Final MEDICATIONS: pravastatin (PRAVACHOL) 40 mg tablet Take 1 tablet by mouth daily at bedtime. levothyroxine (LEVOXYL) 150 mcg tablet Take 1 tablet by mouth once daily. Take on empty stomach. For Thyroid. finasteride (PROSCAR) 5 mg tablet Take 1 tablet by mouth once daily. oxybutynin ER (DITROPAN XL) 10 mg 24 hr tablet Take 1 tablet by mouth once daily. FLUoxetine (PROZAC) 40 mg capsule TAKE 1 CAPSULE ONCE DAILY. TAKE WITH 10MG CAPSULE FOR TOTAL DAILY DOSE OF 50MG. labetalol (TRANDATE) 100 mg tablet TAKE 1 TABLET TWICE DAILY FLUoxetine (PROZAC) 10 mg capsule Take 1 capsule by mouth once daily. Take in addition to the 40mg dose for total daily dose of 50mg. cyanocobalamin (VITAMIN B-12) 1,000 mcg tab Take 2 tablets by mouth once daily. potassium chloride (KLOR-CON 10) 10 mEq tablet Take 2 tablets by mouth twice daily. famotidine (PEPCID) 20 mg tablet Take 1 tablet by mouth once daily. ferrous sulfate 325 mg (65 mg iron) tablet Take 1 tablet by mouth daily with breakfast. aspirin, enteric coated (ASPIRIN, ENTERIC COATED) 81 mg EC tablet Take 1 tablet by mouth once daily. 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 Hydrocele, bilateral 02/23/2019 US 02/2019: Inguinal hernia Injury, other and unspecified 1996 Crush injury in 1996 to left leg - multiple reconstructive surgeries including rectus flap Internal hemorrhoids 04/25/2020 Left varicocele 02/23/2019 US 02/2019: LGI bleed 05/18/2011 Major depressive disorder in remission (HCC) 08/20/2018 Medicare annual wellness visit, subsequent 02/17/2019 Medicare part B: 03/14/2013 last done: 04/25/2020 MRSA pneumonia (HCC) 12/12/2016 admitted [facility], + sputum for MRSA Neck pain 05/15/2016 Nocturia 06/21/2011 OAB (overactive bladder) Obesity, Class I, BMI 30-34.9 08/20/2018 Renal cyst, acquired 06/21/2011 Sebaceous cyst 02/17/2019 Small right lower back Urge incontinence 08/20/2018 Urgency of micturation 06/21/2011 Urinary calculus, unspecified Renal stones Vitamin B12 deficiency 08/21/2018 PAST SURGICAL HISTORY: PAST SURGICAL HISTORY Procedure Laterality Date COLONOSCOPY FLX DX W/COLLJ SPEC WHEN PFRMD 06/01/11 COLONOSCOPY FLX DX W/COLLJ SPEC WHEN PFRMD 04/06/2018 repeat 10 years DECOMPRESS ANT/LAT+POST LEG CMPART 1996 6 operations - traumatic leg injury (Left) EGD TRANSORAL BIOPSY SINGLE/MULTIPLE 12/07/11 EGD TRANSORAL BIOPSY SINGLE/MULTIPLE 01/22/12 resolved esophagitis, improved gastritis ESOPHAGOGASTRODUODENOSCOPY TRANSORAL DIAGNOSTIC 04/06/2018 EGD (more content not included)... [facility] 04-02-2023 Note HNO ID: [id number] Author: Juliette Huang LPN Service: ? Author Type: ? Type: Progress Notes Filed: 04/02/2023 3:50 PM Note Text: Verified name and date of . CC Post Void Residual HPI: General Blake Buckner is a 62 year old male. The patient is here now for an appointment with Amy Fernandez, [place], [place], PA-COV. Procedure: Explained procedure to patient and verbalizes understanding. Performed a PVR. Patient urinated and instructed to empty bladder as much as possible just prior to having PVR done using bladder ultrasound scanner. Results of scan: 0 mL The patient tolerated the procedure well. Plan: Appointment with mAy. [facility] 03-18-2023 Note HNO ID: [id number] Author: Juliette Huang LPN Service: ? Author Type: ? Type: Progress Notes Filed: 03/21/2023 10:15 AM Note Text: Patient has appointment on 04/02/2023. Last office visit 03/23/2022 with follow up in one year with PSA prior. Juliette Huang LPN [facility] 03-18-2023 History of Presen t illness Narrative Patient has appointment on 04/02/2023. Last office visit 03/23/2022 with follow up in one year with PSA prior. Juliette Huang LPN documented in this encounter [facility] 03-18-2023 Miscellaneous Notes The following approved medication requests have been transmitted electronically. Requested Prescriptions Signed Prescriptions Disp Refills pravastatin (PRAVACHOL) 40 mg tablet 90 tablet 1 Sig: Take 1 tablet by mouth daily at bedtime. Authorizing Provider: LANE LOWERY MD Patient has been identified by name and date of : Yes Requested Prescriptions Pending Prescriptions Disp Refills pravastatin (PRAVACHOL) 40 mg tablet 90 tablet 0 Sig: Take 1 tablet by mouth daily at bedtime. RX INSTRUCTIONS: Patient aware RX will be sent to pharmacy. No need to notify patient. Patient last office visit: 12/27/22 Patient next office visit: 04/04/23 Savita Fernandez MA documented in this encounter [facility] 02-14-2023 Miscellaneous Notes Called patient. Verified name and date of . Aware medications have been refilled but will need yearly appointment in March. Scheduled appointment for April 02, 2023 at 1400. Juliette Huang LPN documented in this encounter [facility] 01-16-2023 Miscellaneous Notes Patient has been identified by name and date of : Yes Requested Prescriptions Pending Prescriptions Disp Refills FLUoxetine (PROZAC) 40 mg capsule [Pharmacy Med Name: FLUOXETINE HYDROCHLORIDE 40 MG Capsule] 90 capsule 1 Sig: TAKE 1 CAPSULE ONCE DAILY. TAKE WITH 10MG CAPSULE FOR TOTAL DAILY DOSE OF 50MG. labetalol (TRANDATE) 100 mg tablet [Pharmacy Med Name: LABETALOL HYDROCHLORIDE 100 MG Tablet] 180 tablet 1 Sig: TAKE 1 TABLET TWICE DAILY RX INSTRUCTIONS: Patient aware RX will be sent to pharmacy. No need to notify patient. Sharmaine Lyons MA [place]: 12/27/2022 Nov: 03/2023 Last refill: 08/2022 documented in this encounter [facility] 01-01-2023 Miscellaneous Notes Patient has been identified by name and date of : Yes, Patient phones for refill(s): Requested Prescriptions Pending Prescriptions Disp Refills pravastatin (PRAVACHOL) 40 mg tablet 90 tablet 0 Sig: Take 1 tablet by mouth daily at bedtime. Date of last office visit in primary care: 12/27/2022 Next appointment scheduled 04/04/2023 Please advise. Thank you. Analisa Elder LPN documented in this encounter [facility] 12-27-2022 Note HNO ID: [id number] Author: Preeti Will APRN.DRAFTING ENGINEER Service: ? Author Type: Nurse Practitioner Type: Progress Notes Filed: 12/27/2022 5:49 PM Note Text: Chief Complaint Patient presents with: Follow Up HPI General Blake Buckner is a 62 year old male who presents here today for Above Complaints.. Patient presents for Thyroid check. Patient was seen 10/25/2022 for BP evaluation. Patients BP was ok on re-evaluation but patients TSH was noted to be elevated at 10.300. Patient's synthyroid was increased from 125 to 150mcg. Past medical history, appointments, medications, allergies reviewed. 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 Hydrocele, bilateral 02/23/2019 US 02/2019: Inguinal hernia Injury, other and unspecified 1996 Crush injury in 1996 to left leg - multiple reconstructive surgeries including rectus flap Internal hemorrhoids 04/25/2020 Left varicocele 02/23/2019 US 02/2019: LGI bleed 05/18/2011 Major depressive disorder in remission (HCC) 08/20/2018 Medicare annual wellness visit, subsequent 02/17/2019 Medicare part B: 03/14/2013 last done: 04/25/2020 MRSA pneumonia (HCC) 12/12/2016 admitted [facility], + sputum for MRSA Neck pain 05/15/2016 Nocturia 06/21/2011 Obesity, Class I, BMI 30-34.9 08/20/2018 Renal cyst, acquired 06/21/2011 Sebaceous cyst 02/17/2019 Small right lower back Urge incontinence 08/20/2018 Urgency of micturation 06/21/2011 Urinary calculus, unspecified Renal stones Vitamin B12 deficiency 08/21/2018 Previous Surgical History PAST SURGICAL HISTORY Procedure Laterality Date COLONOSCOPY FLX DX W/COLLJ SPEC WHEN PFRMD 06/01/11 COLONOSCOPY FLX DX W/COLLJ SPEC WHEN PFRMD 04/06/2018 repeat 10 years DECOMPRESS ANT/LAT+POST LEG CMPART 1996 6 operations - traumatic leg injury (Left) EGD TRANSORAL BIOPSY SINGLE/MULTIPLE 12/07/11 EGD TRANSORAL BIOPSY SINGLE/MULTIPLE 01/22/12 resolved esophagitis, improved gastritis ESOPHAGOGASTRODUODENOSCOPY TRANSORAL DIAGNOSTIC 04/06/2018 EGD LEXISCAN STRESS TEST 09/30/2019 Negative RPR 1ST INGUN HRNA AGE 4 YRS/> REDUCIBLE bilater SIMPLE INTRACRANIAL ARYSM CAROTID CIRCULATION 2005 Intracranial aneurysm -- [facility] Family History FAMILY HISTORY Problem Relation Age of Onset Cancer Mother Headache Mother Hypertension Mother Psychiatry Mother DEPRESSION Cancer Father Headache Father Hypertension Father Hearing Loss Father Psychiatry Father DEPRESSION None Brother Alcohol/Drug Brother Psychiatry Sister DEPRESSION Psychiatry Brother DEPRESSION Psychiatry Maternal Grandmother DEPRESSION Osteoporosis Sister Colon Cancer Other no first-degree Coronary Artery Disease Other none Patient Allergies ALLERGIES No Known Allergies Current Medications Current Outpatient Medications on File Prior to Visit Medication Sig FLUoxetine (PROZAC) 10 mg capsule Take 1 capsule by mouth once daily. Take in addition to the 40mg dose for total daily dose of 50mg. levothyroxine (LEVOXYL) 150 mcg tablet Take 1 tablet by mouth once daily. Take on empty stomach. For Thyroid. cyanocobalamin (VITAMIN B-12) 1,000 mcg tab Take 2 tablets by mouth once daily. pravastatin (PRAVACHOL) 40 mg tablet Take 1 tablet by mouth daily at bedtime. labetalol (TRANDATE) 100 mg tablet Take 1 tablet by mouth twice daily. FLUoxetine (PROZAC) 40 mg capsule Take 1 capsule by mouth once daily. Take with 10mg capsule for total daily dose of 50mg. finasteride (PROSCAR) 5 mg tablet Take 1 tablet by mouth once daily. oxybutynin ER (DITROPAN XL) 10 mg 24 hr tablet Take 1 tablet by mouth once daily. potassium chloride (KLOR-CON 10) 10 mEq tablet Take 2 tablets by mouth twice daily. famotidine (PEPCID) 20 mg tablet Take 1 tablet by mouth once daily. ferrous sulfate 325 mg (65 mg iron) tablet Take 1 tablet by mouth daily with breakfast. aspirin, enteric coated (ASPIRIN, ENTERIC COATED) 81 mg EC tablet Take 1 tablet by mouth once daily. No current facility-administered medications on file prior to visit. Social History Social History Tobacco Use Smoking status: Former Packs/day: 1.00 (more content not included)... [facility] 12-27-2022 Instructions Preeti Will APRN.CNP - 12/27/2022 5:49 PM EDT Continue current dose levothyroxine Follow up as scheduled documented in this encounter [facility] 12-27-2022 History of Presen t illness Narrative Chief Complaint Patient presents with: Follow Up HPI General Blake Buckner is a 62 year old male who presents here today for Above Complaints.. Patient presents for Thyroid check. Patient was seen 10/25/2022 for BP evaluation. Patients BP was ok on re-evaluation but patients TSH was noted to be elevated at 10.300. Patient's synthyroid was increased from 125 to 150mcg. Past medical history, appointments, medications, allergies reviewed. 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 Hydrocele, bilateral 02/23/2019 US 02/2019: Inguinal hernia Injury, other and unspecified 1996 Crush injury in 1996 to left leg - multiple reconstructive surgeries including rectus flap Internal hemorrhoids 04/25/2020 Left varicocele 02/23/2019 US 02/2019: LGI bleed 05/18/2011 Major depressive disorder in remission (HCC) 08/20/2018 Medicare annual wellness visit, subsequent 02/17/2019 Medicare part B: 03/14/2013 last done: 04/25/2020 MRSA pneumonia ([facility]) 12/12/2016 admitted [facility], + sputum for MRSA Neck pain 05/15/2016 Nocturia 06/21/2011 Obesity, Class I, BMI 30-34.9 08/20/2018 Renal cyst, acquired 06/21/2011 Sebaceous cyst 02/17/2019 Small right lower back Urge incontinence 08/20/2018 Urgency of micturation 06/21/2011 Urinary calculus, unspecified Renal stones Vitamin B12 deficiency 08/21/2018 Previous Surgical History PAST SURGICAL HISTORY Procedure Laterality Date COLONOSCOPY FLX DX W/COLLJ SPEC WHEN PFRMD 06/01/11 COLONOSCOPY FLX DX W/COLLJ SPEC WHEN PFRMD 04/06/2018 repeat 10 years DECOMPRESS ANT/LAT+POST LEG CMPART 1996 6 operations - traumatic leg injury (Left) EGD TRANSORAL BIOPSY SINGLE/MULTIPLE 12/07/11 EGD TRANSORAL BIOPSY SINGLE/MULTIPLE 01/22/12 resolved esophagitis, improved gastritis ESOPHAGOGASTRODUODENOSCOPY TRANSORAL DIAGNOSTIC 04/06/2018 EGD LEXISCAN STRESS TEST 09/30/2019 Negative RPR 1ST INGUN HRNA AGE 4 YRS/> REDUCIBLE bilater SIMPLE INTRACRANIAL ARYSM CAROTID CIRCULATION 2005 Intracranial aneurysm -- [facility] Family History FAMILY HISTORY Problem Relation Age of Onset Cancer Mother Headache Mother Hypertension Mother Psychiatry Mother DEPRESSION Cancer Father Headache Father Hypertension Father Hearing Loss Father Psychiatry Father DEPRESSION None Brother Alcohol/Drug Brother Psychiatry Sister DEPRESSION Psychiatry Brother DEPRESSION Psychiatry Maternal Grandmother DEPRESSION Osteoporosis Sister Colon Cancer Other no first-degree Coronary Artery Disease Other none Patient Allergies ALLERGIES No Known Allergies Current Medications Current Outpatient Medications on File Prior to Visit Medication Sig FLUoxetine (PROZAC) 10 mg capsule Take 1 capsule by mouth once daily. Take in addition to the 40mg dose for total daily dose of 50mg. levothyroxine (LEVOXYL) 150 mcg tablet Take 1 tablet by mouth once daily. Take on empty stomach. For Thyroid. cyanocobalamin (VITAMIN B-12) 1,000 mcg tab Take 2 tablets by mouth once daily. pravastatin (PRAVACHOL) 40 mg tablet Take 1 tablet by mouth daily at bedtime. labetalol (TRANDATE) 100 mg tablet Take 1 tablet by mouth twice daily. FLUoxetine (PROZAC) 40 mg capsule Take 1 capsule by mouth once daily. Take with 10mg capsule for total daily dose of 50mg. finasteride (PROSCAR) 5 mg tablet Take 1 tablet by mouth once daily. oxybutynin ER (DITROPAN XL) 10 mg 24 hr tablet Take 1 tablet by mouth once daily. potassium chloride (KLOR-CON 10) 10 mEq tablet Take 2 tablets by mouth twice daily. famotidine (PEPCID) 20 mg tablet Take 1 tablet by mouth once daily. ferrous sulfate 325 mg (65 mg iron) tablet Take 1 tablet by mouth daily with breakfast. aspirin, enteric coated (ASPIRIN, ENTERIC COATED) 81 mg EC tablet Take 1 tablet by mouth once daily. No current facility-administered medications on file prior to visit. Social History Social History Tobacco Use Smoking status: Former Packs/day: 1.00 Years: 20.00 Pack years: 20.00 Types: Cigarettes Quit date: 10/14/1996 Years since quittin.2 Smokeless tobacco: Never Vaping Use Vaping Use: Never used Substance Use Topics Alcohol use: No Drug use: No Review of Symptoms REVIEW OF SYSTEMS SEE HPI EXAM: BP 146/90 Pulse 62 Resp 14 Wt 106.1 kg (234 lb) BMI 33.34 kg/m General Appearance: Well appearing, alert, in no acute distress, well-hydrated, well nourished.. Health Maintenance List BP CONTROLLED (<130/80) due on 04/25/2021 DTAP,TDAP,TD(2 - Td or Tdap) due on 10/03/2023 SHINGRIX VACCINE(1 of 2) due on 10/03/2023 ANNUAL PCP TEAM CHRONIC DISEASE VISIT due on 10/25/2023 DIABETES SCREEN due on 10/23/2025 LIPID SCREEN due on 10/23/2027 PROSTATE CANCER SCREENING DISCUSSION due on 10/23/2027 COLORECTAL CANCER SCREENING due on 04/06/2029 INFLUENZA Completed HEPATITIS C SCREENING Completed COVID-19 VACCINE Completed HIV SCREENING Discontinued ASSESSMENT/PLAN: 1. Acquired hypothyroidism - ICD9: 244.9, ICD10: E03.9 - Instructed patient on importance of taking on an empty stomach either first thing in the morning or at bedtime. - check TSH in 3 months - continue current dose of Synthroid 0.150 mg - Follow up in 3 months Stable Preeti Will APRN.CNP documented in this encounter [facility] 12-27-2022 Miscellaneous Notes Patient active on [employer], message sent Keshia Root Cma Please let patient know his TSH is normal documented in this encounter [facility] 11-26-2022 Miscellaneous Notes Patient has been identified by name and date of : Yes Requested Prescriptions Pending Prescriptions Disp Refills FLUoxetine (PROZAC) 10 mg capsule 90 capsule 1 Sig: Take 1 capsule by mouth once daily. Take in addition to the 40mg dose for total daily dose of 50mg. RX INSTRUCTIONS: Patient aware RX will be sent to pharmacy. No need to notify patient. Sharmaine Lyons MA [place]: 10/2022 Nov: 12/2022 Last refill: 08/2022 documented in this encounter [facility] 10-26-2022 Miscellaneous Notes Order placed. Left detailed message on vm and spoke to who would like to schedule for PT. Please placed order and will route to psr Tiffanie Contreras Ma Xray shows arthritis. Consider Physical Therapy. documented in this encounter [facility] 10-25-2022 Miscellaneous Notes Addended by: PREETI WILL on: 10/25/2022 05:20 PM Modules accepted: Orders New prescriptions sent. [facility] calling to let provider know they do not stock cyanocobalamin 2000 mcg tablets. They carry 1000 mcg tablets. They are asking if you want to order this and have him take 2 tablets daily? Kasandra Abad, RN documented in this encounter [facility] 10-25-2022 Instructions Preeti Will APRN.CNP - 10/25/2022 4:41 PM EST Continue current BP meds Increase levothyroxine to 150mcg daily Increase Vitamin B12 to 2000 mcg daily Follow up in 2 months Complete TSH lab draw prior to follow up documented in this encounter [facility] 10-25-2022 History of Presen t illness Narrative Chief Complaint Patient presents with: Follow Up HPI General Blake Buckner is a 62 year old male who presents here today for Above Complaints.. Patient presents for BP follow up. Patient was seen by Dr. Lowery 10/03/2022 and was noted to have an elevated BP. Patient was unsure at that appointment if he had taken bp meds. Patient bp improved today. And at goal. Denies headaches, chest pain, shortness of breath, peripheral edema. Past medical history, appointments, medications, allergies reviewed. 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 Hydrocele, bilateral 02/23/201902/2019: Inguinal hernia Injury, other and unspecified 1996 Crush injury in 1996 to left leg - multiple reconstructive surgeries including rectus flap Internal hemorrhoids 04/25/2020 Left varicocele 02/23/2019 US 02/2019: LGI bleed 05/18/2011 Major depressive disorder in remission (HCC) 08/20/2018 Medicare annual wellness visit, subsequent 02/17/2019 Medicare part B: 03/14/2013 last done: 04/25/2020 MRSA pneumonia ([facility]) 12/12/2016 admitted [facility], + sputum for MRSA Neck pain 05/15/2016 Nocturia 06/21/2011 Obesity, Class I, BMI 30-34.9 08/20/2018 Renal cyst, acquired 06/21/2011 Sebaceous cyst 02/17/2019 Small right lower back Urge incontinence 08/20/2018 Urgency of micturation 06/21/2011 Urinary calculus, unspecified Renal stones Vitamin B12 deficiency 08/21/2018 Previous Surgical History PAST SURGICAL HISTORY Procedure Laterality Date COLONOSCOPY FLX DX W/COLLJ SPEC WHEN PFRMD 06/01/11 COLONOSCOPY FLX DX W/COLLJ SPEC WHEN PFRMD 04/06/2018 repeat 10 years DECOMPRESS ANT/LAT+POST LEG CMPART 1997 6 operations - traumatic leg injury (Left) EGD TRANSORAL BIOPSY SINGLE/MULTIPLE 2/24/12 EGD TRANSORAL BIOPSY SINGLE/MULTIPLE 01/22/12 resolved esophagitis, improved gastritis ESOPHAGOGASTRODUODENOSCOPY TRANSORAL DIAGNOSTIC 04/06/2018 EGD LEXISCAN STRESS TEST 09/30/2019 Negative RPR 1ST INGUN HRNA AGE 4 YRS/> REDUCIBLE bilater SIMPLE INTRACRANIAL ARYSM CAROTID CIRCULATION 2004 Intracranial aneurysm -- [facility] Family History FAMILY HISTORY Problem Relation Age of Onset Cancer Mother Headache Mother Hypertension Mother Psychiatry Mother DEPRESSION Cancer Father Headache Father Hypertension Father Hearing Loss Father Psychiatry Father DEPRESSION None Brother Alcohol/Drug Brother Psychiatry Sister DEPRESSION Psychiatry Brother DEPRESSION Psychiatry Maternal Grandmother DEPRESSION Osteoporosis Sister Colon Cancer Other no first-degree Coronary Artery Disease Other none Patient Allergies ALLERGIES No Known Allergies Current Medications Current Outpatient Medications on File Prior to Visit Medication Sig pravastatin (PRAVACHOL) 40 mg tablet Take 1 tablet by mouth daily at bedtime. labetalol (TRANDATE) 100 mg tablet Take 1 tablet by mouth twice daily. FLUoxetine (PROZAC) 40 mg capsule Take 1 capsule by mouth once daily. Take with 10mg capsule for total daily dose of 50mg. levothyroxine (SYNTHROID) 125 mcg tablet Take 1 tablet by mouth once daily. FLUoxetine (PROZAC) 10 mg capsule Take 1 capsule by mouth once daily. Take in addition to the 40mg dose for total daily dose of 50mg. finasteride (PROSCAR) 5 mg tablet Take 1 tablet by mouth once daily. oxybutynin ER (DITROPAN XL) 10 mg 24 hr tablet Take 1 tablet by mouth once daily. potassium chloride (KLOR-CON 10) 10 mEq tablet Take 2 tablets by mouth twice daily. famotidine (PEPCID) 20 mg tablet Take 1 tablet by mouth once daily. ferrous sulfate 325 mg (65 mg iron) tablet Take 1 tablet by mouth daily with breakfast. cyanocobalamin (VITAMIN B-12) 1,000 mcg tab Take 1 tablet by mouth once daily. aspirin, enteric coated (ASPIRIN, ENTERIC COATED) 81 mg EC tablet Take 1 tablet by mouth once daily. No current facility-administered medications on file prior to visit. Social History Social History Tobacco Use Smoking status: Former Packs/day: 1.00 Years: 20.00 Pack years: 20.00 Types: Cigarettes Quit date: 10/14/1996 Years since quittin.0 Smokeless tobacco: Never Vaping Use Vaping Use: Never used Substance Use Topics Alcohol use: No Drug use: No Review of Symptoms REVIEW OF SYSTEMS SEE HPI EXAM: BP 140/86 Pulse (!) 58 Resp 16 Wt 108 kg (238 lb) BMI 33.91 kg/m General Appearance: Well appearing, alert, in no acute distress, well-hydrated, well nourished.. Lungs: Lungs clear to auscultation. No wheezing, rhonchi, rales.. Heart: RRR without murmur, gallop, or rubs. No ectopy. Health Maintenance List BP CONTROLLED (<130/80) due on 04/25/2021 DTAP,TDAP,TD(2 - Td or Tdap) due on 10/03/2023 SHINGRIX VACCINE(1 of 2) due on 10/03/2023 ANNUAL PCP TEAM CHRONIC DISEASE VISIT due on 10/03/2023 DIABETES SCREEN due on 10/23/2025 LIPID SCREEN due on 10/23/2027 PROSTATE CANCER SCREENING DISCUSSION due on 10/23/2027 COLORECTAL CANCER SCREENING due on 04/06/2029 INFLUENZA Completed HEPATITIS C SCREENING Completed COVID-19 VACCINE Completed HIV SCREENING Discontinued Data reviewed Component Latest Ref Rng & Units 10/23/2022 WBC 3.70 - 11.00 k/uL 7.24 RBC 4.20 - 6.00 m/uL 4.10 (L) Hemoglobin 13.0 - 17.0 g/dL 13.2 Hematocrit 39.0 - 51.0 % 39.1 MCV 80.0 - 100.0 fL 95.4 MCH 26.0 - 34.0 pg 32.2 MCHC 30.5 - 36.0 g/dL 33.8 RDW-CV 11.5 - 15.0 % 13.2 Platelet Count 150 - 400 k/uL 277 MPV 9.0 - 12.7 fL 10.1 Neut% % 33.2 Abs Neut (ANC) 1.45 - 7.50 k/uL 2.40 Lymph% % 39.1 Abs Lymph 1.00 - 4.00 k/uL 2.83 [place]% % 13.3 Abs [place] <0.87 k/uL 0.96 (H) Eosin% % 12.0 Abs Eosin <0.46 k/uL 0.87 (H) Baso% % 2.3 Abs Baso <0.11 k/uL 0.17 (H) Immature Gran % % 0.1 IMMATURE GRANS (ABS) <0.10 k/uL <0.03 NRBC /100 WBC 0.0 Absolute nRBC <0.01 k/uL <0.01 DTYPE Auto Protein, Total 6.3 - 8.0 g/dL 6.9 Albumin 3.9 - 4.9 g/dL 4.0 Calcium 8.5 - 10.2 mg/dL 9.3 Bilirubin, Total 0.2 - 1.3 mg/dL 1.6 (H) Alkaline Phosphatase 38 - 113 U/L 76 AST 14 - 40 U/L 25 ALT 10 - 54 U/L 23 Glucose 74 - 99 mg/dL 79 BUN 9 - 24 mg/dL 10 Creatinine 0.73 - 1.22 mg/dL 0.90 Sodium 136 - 144 mmol/L 144 Potassium 3.7 - 5.1 mmol/L 4.1 Chloride 97 - 105 mmol/L 108 (H) CO2 22 - 30 mmol/L 26 Anion Gap 9 - 18 mmol/L 10 eGFR >=60 mL/min/1.73m 96 Color Yellow Yellow Clarity Clear Clear Glucose, Urine Trace, Negative Negative Bilirubin, Urine Negative Negative Ketones, Urine Trace, Negative Negative Specific [place], Ur 1.005 - 1.030 1.014 Hemoglobin/Blood,Ur Negative, Trace Negative pH, Urine 5.0 - 8.0 7.5 Protein, Urine Trace, Negative Negative Urobilinogen Negative Negative Nitrites Negative Negative Leukest Negative, 25 Kian/mL Negative WBC, Urine 0-5 /HPF 0-5 /HPF RBC, Urine 0-3 /HPF 0-3 /HPF Sperm None Seen /HPF Present (A) Total Cholesterol, Nonfasting <200 mg/dL 171 Triglycerides, Nonfasting <150 mg/dL 94 HDL Cholesterol, Nonfasting >39 mg/dL 60 LDL Cholesterol, Nonfasting <100 mg/dL 92 Non HDL Cholesterol, Nonfasting <130 mg/dL 111 VLDL Cholesterol, Nonfasting <30 mg/dL 19 Total Chol/HDL Ratio, Nonfasting <5.10 mg/dL 2.85 LDL/HDL Ratio, Nonfasting <2.54 mg/dL 1.53 Vitamin B12 232 - 1,245 pg/mL 246 PSA <2.60 ng/mL 0.34 TSH 0.270 - 4.200 mIU/L 10.300 (H) ASSESSMENT/PLAN: 1. Primary hypertension - ICD9: 401.9, ICD10: I10 (primary diagnosis) - good control - Continue current medication(s) - Encouraged dietary sodium restriction/DASH diet - Recommended regular aerobic exercise. - Recommend home blood pressure monitoring, to bring results in on next visit - Discussed need and benefit for weight loss. - Reviewed risks of HTN and principles of treatment - Goal of BP <140/90 - Recommend home or pharmacy blood pressure monitoring 2. Acquired hypothyroidism - ICD9: 244.9, ICD10: E03.9 - Instructed patient on importance of taking on an empty stomach either first thing in the morning or at bedtime. - check TSH in 2 months - Increase Synthroid dose to 0.150 mg - Follow up in 2 months Weight increasing 3. Vitamin B12 deficiency - ICD9: 266.2, ICD10: E53.8 - Increase Vitamin B12 to 2000 mcg daily Preeti Will APRN.DRAFTING ENGINEER documented in this encounter [facility] 10-03-[address] Lowery MD - 10/03/2022 6:39 PM EST Consider getting the shingrix vaccine for the prevention of shingles from a local pharmacy documented in this encounter [facility] 10-03-2022 Nurse Note True BP average 150/89 147/89 150/87 150/90 163/92 146/88 documented in this encounter [facility] 10-03-2022 History of Presen t illness Narrative Welcome To Medicare Visit Medical B eligibility date 03/14/2013 Date of last exam 10/03/2021 PAST MEDICAL HISTORY PAST MEDICAL HISTORY Diagnosis Date Abnormal serum protein test 06/14/2011 saw hematolgy Acquired hypothyroidism 01/05/2016 Anemia due to vitamin B12 deficiency 08/21/2018 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 Hydrocele, bilateral 02/23/2019 US 02/2019: Inguinal hernia Injury, other and unspecified 1996 Crush injury in 1996 to left leg - multiple reconstructive surgeries including rectus flap Internal hemorrhoids 04/25/2020 Left varicocele 02/23/2019 US 02/2019: LGI bleed 05/18/2011 Major depressive disorder in remission (HCC) 08/20/2018 Medicare annual wellness visit, subsequent 02/17/2019 Medicare part B: 03/14/2013 last done: 04/25/2020 MRSA pneumonia (HCC) 12/12/2016 admitted [facility], + sputum for MRSA Neck pain 05/15/2016 Nocturia 06/21/2011 Obesity, Class I, BMI 30-34.9 08/20/2018 Renal cyst, acquired 06/21/2011 Sebaceous cyst 02/17/2019 Small right lower back Urge incontinence 08/20/2018 Urgency of micturation 06/21/2011 Urinary calculus, unspecified Renal stones Vitamin B12 deficiency 08/21/2018 PAST SURGICAL HISTORY PAST SURGICAL HISTORY Procedure Laterality Date ANEURYSM SURG/CAROTID CIRC 2004 Intracranial aneurysm -- [facility] COLONOSCOP W/ OR W/O BRSH SPEC 06/01/11 COLONOSCOP W/ OR W/O BRSH SPEC 04/06/2018 repeat 10 years DECOMPRESS ANT/LAT+POST LEG CMPART 1996 6 operations - traumatic leg injury (Left) EGD W/O BRSH SPECIMEN W/BX 12/07/11 EGD W/O BRSH SPECIMEN W/BX 01/22/12 resolved esophagitis, improved gastritis EGD W/O OR W/BRUSH/WASH 04/06/2018 EGD LEXISCAN STRESS TEST 09/30/2019 Negative REPAIR ING HERNIA,5+Y/O,REDUCIBL bilater Patient has no known allergies. Medications reviewed: Yes FAMILY HISTORY FAMILY HISTORY Problem Relation Age of Onset Cancer Mother Headache Mother Hypertension Mother Psychiatry Mother DEPRESSION Cancer Father Headache Father Hypertension Father Hearing Loss Father Psychiatry Father DEPRESSION None Brother Alcohol/Drug Brother Psychiatry Sister DEPRESSION Psychiatry Brother DEPRESSION Psychiatry Maternal Grandmother DEPRESSION Osteoporosis Sister Colon Cancer Other no first-degree Coronary Artery Disease Other none SOCIAL HISTORY: SOCIAL HISTORY Social History Tobacco Use Smoking status: Former Smoker Packs/day: 1.00 Years: 20.00 Pack years: 20.00 Types: Cigarettes Quit date: 10/14/1996 Years since quittin.9 Smokeless tobacco: Never Used Vaping Use Vaping Use: Never used Substance Use Topics Alcohol use: No Drug use: No General denies regular aerobic exercise. He watches his diet for sodium, low fat and low cholesterol generally not very much. List of current specialists seen: none End of Live Planning discussed including patients advanced directive wishes: Yes I am willing to follow General's advanced directives. PHQ-2 / Depression screen Depression Screening 08/20/2018 12/05/2018 04/24/2020 10/03/2022 PHQ-2 Score 4 2 5 1 PHQ-9 Score 20 10 20 - Depression screening tool completed and reviewed. Based on score and interview, patient is at risk for depression. Screening tool discussed with patient, and I recommended no further intervention at this time. Functional Ability/Safety Screen 1. Was the patient's timed Up and Go test unsteady or longer than 30 seconds? No 2. Does the patient need help with the phone, transportation, shopping,preparing meals, housework, laundry, medications or managing money? No, manages finances 3. Does your home have rugs in the hallway, lack of grab bars in the bathroom, lack of handrails (Y) on the stairs or have poor lighting? No Hearing Evaluation: hard of hearing PHYSICAL EXAM BP 126/86 (BP Site: Right Arm, BP Position: Sitting, BP Cuff Size: Large Adult) Pulse 64 Temp 36.3 C (97.4 F) Resp 18 Ht 177 cm (5' 9.69 ) Wt 113.4 kg (250 lb) BMI 36.20 kg/m Alert and oriented X 3: YES Body mass index is 36.2 kg/m . Visual acuity: sees opot ASSESSMENT/PLAN: 61 year old male The following prevention plan was discussed during the office visit and provided to the patient: See below. Chief Complaint Patient presents with: Medicare Wellness Exam HPI General Blake Buckner is a 61 year old male who presents here today for extensive Visit. Patient with hx of HTN, balance problems, depression, GERD, hypothyroid and those as below. Patient has been having pain in the left shoulder. Sometimes sharp. Sometimes pain increased with movement . Past medical history, appointments, medications, allergies reviewed. 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 Hydrocele, bilateral 02/23/2019 US 02/2019: Inguinal hernia Injury, other and unspecified 1996 Crush injury in 1996 to left leg - multiple reconstructive surgeries including rectus flap Internal hemorrhoids 04/25/2020 Left varicocele 02/23/201902/2019: LGI bleed 05/18/2011 Major depressive disorder in remission (HCC) 08/20/2018 Medicare annual wellness visit, subsequent 02/17/2019 Medicare part B: 03/14/2013 last done: 04/25/2020 MRSA pneumonia (HCC) 12/12/2016 admitted [facility], + sputum for MRSA Neck pain 05/15/2016 Nocturia 06/21/2011 Obesity, Class I, BMI 30-34.9 08/20/2018 Renal cyst, acquired 06/21/2011 Sebaceous cyst 02/17/2019 Small right lower back Urge incontinence 08/20/2018 Urgency of micturation 06/21/2011 Urinary calculus, unspecified Renal stones Vitamin B12 deficiency 08/21/2018 Previous Surgical History PAST SURGICAL HISTORY Procedure Laterality Date COLONOSCOPY FLX DX W/COLLJ SPEC WHEN PFRMD 06/01/11 COLONOSCOPY FLX DX W/COLLJ SPEC WHEN PFRMD 04/06/2018 repeat 10 years DECOMPRESS ANT/LAT+POST LEG CMPART 1996 6 operations - traumatic leg injury (Left) EGD TRANSORAL BIOPSY SINGLE/MULTIPLE 12/07/11 EGD TRANSORAL BIOPSY SINGLE/MULTIPLE 01/22/12 resolved esophagitis, improved gastritis ESOPHAGOGASTRODUODENOSCOPY TRANSORAL DIAGNOSTIC 04/06/2018 EGD LEXISCAN STRESS TEST 09/30/2019 Negative RPR 1ST INGUN HRNA AGE 4 YRS/> REDUCIBLE bilater SIMPLE INTRACRANIAL ARYSM CAROTID CIRCULATION 2004 Intracranial aneurysm -- [facility] Family History FAMILY HISTORY Problem Relation Age of Onset Cancer Mother Headache Mother Hypertension Mother Psychiatry Mother DEPRESSION Cancer Father Headache Father Hypertension Father Hearing Loss Father Psychiatry Father DEPRESSION None Brother Alcohol/Drug Brother Psychiatry Sister DEPRESSION Psychiatry Brother DEPRESSION Psychiatry Maternal Grandmother DEPRESSION Osteoporosis Sister Colon Cancer Other no first-degree Coronary Artery Disease Other none Patient Allergies ALLERGIES No Known Allergies Current Medications Current Outpatient Medications on File Prior to Visit Medication Sig pravastatin (PRAVACHOL) 40 mg tablet Take 1 tablet by mouth daily at bedtime. labetalol (TRANDATE) 100 mg tablet Take 1 tablet by mouth twice daily. FLUoxetine (PROZAC) 40 mg capsule Take 1 capsule by mouth once daily. Take with 10mg capsule for total daily dose of 50mg. levothyroxine (SYNTHROID) 125 mcg tablet Take 1 tablet by mouth once daily. FLUoxetine (PROZAC) 10 mg capsule Take 1 capsule by mouth once daily. Take in addition to the 40mg dose for total daily dose of 50mg. finasteride (PROSCAR) 5 mg tablet Take 1 tablet by mouth once daily. oxybutynin ER (DITROPAN XL) 10 mg 24 hr tablet Take 1 tablet by mouth once daily. potassium chloride (KLOR-CON 10) 10 mEq tablet Take 2 tablets by mouth twice daily. famotidine (PEPCID) 20 mg tablet Take 1 tablet by mouth once daily. ferrous sulfate 325 mg (65 mg iron) tablet Take 1 tablet by mouth daily with breakfast. cyanocobalamin (VITAMIN B-12) 1,000 mcg tab Take 1 tablet by mouth once daily. aspirin, enteric coated (ASPIRIN, ENTERIC COATED) 81 mg EC tablet Take 1 tablet by mouth once daily. No current facility-administered medications on file prior to visit. Social History Social History Tobacco Use Smoking status: Former Packs/day: 1.00 Years: 20.00 Pack years: 20.00 Types: Cigarettes Quit date: 10/14/1996 Years since quittin.9 Smokeless tobacco: Never Vaping Use Vaping Use: Never used Substance Use Topics Alcohol use: No Drug use: No Review of Symptoms REVIEW OF SYSTEMS GENERAL: No weight loss, malaise or fevers HEENT: Negative for frequent or significant headaches, hearing is bad and needs new glasses. no nose bleeds or other nasal problems NECK: Negative for lumps, goiter, pain and significant neck swelling RESPIRATORY: Negative for cough, hemoptysis, wheezing, COPD, dyspnea or shortness of breath CARDIOVASCULAR: Negative for chest pain, increased leg swelling, hypertension, CHF or palpitations GI: No nausea, vomiting, or diarrhea, No frequent heartburn or reflux symptoms, and no blood : No history of dysuria, blood MUSCULOSKELETAL: see HPI SKIN: Negative for lesions, rash, and itching PSYCH: no depressed just does not enjoy things like he used to. HEMATOLOGY/LYMPHOLOGY: Negative for prolonged bleeding, bruising easily or swollen nodes ENDOCRINE: Negative for cold or heat intolerance, polyuria, polydipsia and goiter NEURO: No history of headaches, syncope, paralysis, seizures or tremors EXAM: BP 150/89 Pulse (!) 54 Resp 16 Ht 178.4 cm (5' 10.25 ) Wt 105.2 kg (232 lb) BMI 33.05 kg/m BP 158/100 Pulse (!) 54 Resp 16 Ht 178.4 cm (5' 10.25 ) Wt 105.2 kg (232 lb) BMI 33.05 kg/m Patient thinks he may not of taken his BP meds today. Last 4 Encounter Wt Readings: Date: Wt: 10/03/2022 105.2 kg (232 lb) 04/03/2022 109.8 kg (242 lb) 03/23/2022 108 kg (238 lb) 03/01/2022 111.8 kg (246 lb 6.4 oz) General Appearance: Well appearing, alert, in no acute distress, well-hydrated, well nourished. and Obese. Skin: Skin color, texture, turgor normal, no suspicious rashes or lesions. Head: Normocephalic, no masses, lesions, tenderness or abnormalities. Eyes: Anicteric sclera. Pupils are equally round and reactive to light. Extraocular movements are intact. . Ears: External ears normal, canals blocked with wax bilaterally. Neck: Supple, no adenopathy; thyroid symmetric, normal size, no bruits. Lungs: Lungs clear to auscultation. No wheezing, rhonchi, rales.. Heart: RRR without murmur, gallop, or rubs. No ectopy. Abdomen: Normal abdominal exam, Abdomen soft, non-tender. Bowel sounds normal. No masses, organomegaly. Extremities: large scaring and muscle deformity of left calf/lemus with color change and slight edema chronic and stable. Right lower leg with no edema. Good capillary refill. . Musculoskeletal: Muscular strength intact, No joint swelling, deformity. Peripheral Pulses: Normal. Neurologic: Gait normal. Reflexes normal and symmetric. Sensation to light touch and crainal nerves 2-12 intact.. Genitalia: Normal, Penis normal. No urethral discharge. Scrotum normal to palpation. Continues with right sided hernia.. Rectal: Normal exam. Prostate enlarged but smooth firm capsule. Health Maintenance List HIV SCREENING Never done SHINGRIX VACCINE(1 of 2) Never done DTAP,TDAP,TD(2 - Td or Tdap) due on 04/05/2019 BP CONTROLLED (<130/80) due on 04/25/2021 ANNUAL PCP TEAM CHRONIC DISEASE VISIT due on 04/03/2023 DIABETES SCREEN due on 04/03/2025 LIPID SCREEN due on 04/03/2027 PROSTATE CANCER SCREENING DISCUSSION due on 04/03/2027 COLORECTAL CANCER SCREENING due on 04/06/2029 INFLUENZA Completed HEPATITIS C SCREENING Completed COVID-19 VACCINE Completed Data reviewed A/P ASSESSMENT/PLAN: 1. Medicare annual wellness visit, subsequent - ICD9: V70.0, ICD10: Z00.00 (primary diagnosis) - Counseled on healthy diet and regular exercise - Discussed need for and benefit of weight loss. BMI 33.05 kg/(m^2) - Follow up for annual exam in one year 2. Essential hypertension with goal blood pressure less than 140/90 - ICD9: 401.9, ICD10: I10 - suboptimal control - patient may not of taken meds today. - Continue current medication(s) - Recommended regular aerobic exercise. - Recommend home blood pressure monitoring, to bring results in on next visit - Recheck in 3 weeks, sooner should new symptoms or problems arise. - Goal of BP <130/80 Check - COMP METABOLIC PANEL - URINALYSIS, WITH MICROSCOPIC - LIPID PANEL, NONFASTING 3. Acquired hypothyroidism - ICD9: 244.9, ICD10: E03.9 - Instructed patient on importance of taking on an empty stomach either first thing in the morning or at bedtime. - continue current dose of Synthroid Check - TSH BLD - CBC + DIFF 4. GERD without esophagitis - ICD9: 530.81, ICD10: K21.9 - Continue treatment with Pepcid 20 mg QD 5. Anemia due to vitamin B12 deficiency, unspecified B12 deficiency type - ICD9: 281.1, ICD10: D51.9 Check - CBC + DIFF 6. History of intracranial aneurysm - ICD9: V12.54, ICD10: Z86.79 - clinically stable 7. Major depressive disorder in remission, unspecified whether recurrent (HCC) - ICD9: 296.25, ICD10: F32.5 - stable with prozac at current dose. 8. Vitamin B12 deficiency - ICD9: 266.2, ICD10: E53.8 Check - VITAMIN B12 BLOOD 9. Obesity, Class I, BMI 30-34.9 - ICD9: 278.00, ICD10: E66.9 Weight decreasing - Behavioral intervention 10. Urge incontinence - ICD9: 788.31, ICD10: N39.41 - stable 11. Acute pain of left shoulder - ICD9: 719.41, ICD10: M25.512 Check - XR SHOULDER GENERAL 3V OR MORE AP/TRUE AP/OTHER LEFT May need PHYSICAL THERAPY if not improving. 12. Bilateral impacted cerumen - ICD9: 380.4, ICD10: H61.23 Discussed irrigation with wam water. Verbal consent provided. Both ears were irrigated with warm water for the removal of wax per nursing. Patient tolerated well. - AMBULATORY EAR LAVAGE/IRRIGATION 13. Hernia, inguinal, right - ICD9: 550.90, ICD10: K40.90 - no issues will monitor 14. Prostate disorder - ICD9: 602.9, ICD10: N42.9 Check - PSA/PROSTSPECAG DIAG F/u 6 months routine I spent a total of 45 minutes on the date of the service which included preparing to see the patient, [id number] patient care, completing clinical documentation, performing a medically appropriate examination, counseling and educating the patient/family/caregiver and ordering medications, tests, or procedures. Lane Lowery MD documented in this encounter [facility] 09-17-2022 Miscellaneous Notes Patient has been identified by name and date of : Yes Requested Prescriptions Pending Prescriptions Disp Refills pravastatin (PRAVACHOL) 40 mg tablet 90 tablet 0 Sig: Take 1 tablet by mouth daily at bedtime. RX INSTRUCTIONS: Patient aware RX will be sent to pharmacy. No need to notify patient. Sharmaine Lyons MA [place]: 03/2022 Nov: 09/2022 Last refill: 05/2022 documented in this encounter [facility] 08-22-2022 Miscellaneous Notes Patient has been identified by name and date of : Yes Requested Prescriptions Pending Prescriptions Disp Refills labetalol (TRANDATE) 100 mg tablet 180 tablet 1 Sig: Take 1 tablet by mouth twice daily. FLUoxetine (PROZAC) 40 mg capsule 90 capsule 1 Sig: Take 1 capsule by mouth once daily. Take with 10mg capsule for total daily dose of 50mg. RX INSTRUCTIONS: Patient aware RX will be sent to pharmacy. No need to notify patient. Sharmaine Lyons MA [place]: 03/2022 Nov: 09/2022 Last refill; 01/2022 documented in this encounter [facility] 08-13-2022 Miscellaneous Notes Patient has been identified by name and date of : Yes Requested Prescriptions Pending Prescriptions Disp Refills levothyroxine (SYNTHROID) 125 mcg tablet 90 tablet 1 Sig: Take 1 tablet by mouth once daily. RX INSTRUCTIONS: Patient aware RX will be sent to pharmacy. No need to notify patient. Sharmaine Lyons MA [place]: 03/2022 Nov: 09/2022 Last refill: 12/2021 documented in this encounter [facility] 06-19-2022 Miscellaneous Notes The following approved medication requests have been transmitted electronically. Requested Prescriptions Signed Prescriptions Disp Refills FLUoxetine (PROZAC) 10 mg capsule 90 capsule 1 Sig: Take 1 capsule by mouth once daily. Take in addition to the 40mg dose for total daily dose of 50mg. Authorizing Provider: LANE LOWERY MD Last office visit: 04/03/22 F/u scheduled: 10/03/22 Madhuri Heredia Ma documented in this encounter [facility] 05-23-2022 Miscellaneous Notes returned call and given provider's message below with verbalized understanding. Left message for pt to contact office. Eliceo Grace LPN ----- Message from Enmanuel Cano PA-C sent at 05/23/2022 1:01 PM EDT ----- Hemoglobin is better and within normal range now. documented in this encounter [facility] 05-21-2022 Miscellaneous Notes Patient has been identified by name and date of : Yes Pending Prescriptions Disp Refills PRAVASTATIN 40 MG TABLET 90 tablet 0 Sig: Take 1 tablet by mouth daily at bedtime. MARIANNE: No RX INSTRUCTIONS: Patient aware RX will be sent to pharmacy. No need to notify patient. Sharmaine Lyons MA [place]: 03/2021 Nov: 09/2022 Last refill: 12/2021 documented in this encounter [facility] 04-20-2022 Miscellaneous Notes returned call and given provider's message below with verbalized understanding. Left message for patient to contact office. Sharmaine Lyons MA Let patient know that his additional labs are normal. We will want to just monitor for now. Repeat cbc in 1 month to trend. Enmanuel Cano PA-C documented in this encounter [facility] 04-05-2022 Miscellaneous Notes (jan) calls and notified of results and providers instructions. Jan verbalizes understanding. Anabel Hester RN Left message for pt to contact office. Eliceo Grace LPN Let patient know that he is still just mildly anemic. Stable compared to last check. Recommend checking iron and folate levels since b12 was normal. Potassium is a little low too. Recheck in 1-2 weeks to trend. Rest of labs are okay. Enmanuel Cano PA-C documented in this encounter [facility] 04-03-2022 History of Presen t illness Narrative Chief Complaint Patient presents with: Recheck: was seen in Urgent Care for left lower leg wound HPI General Blake Buckner is a 61 year old male who presents here today for Above Complaints and chronic conditions.. Patient was seen by [facility] approx 1 month ago due to leg swelling. Patient was concerned for cellulitis but provider did not feel it was. Has noted improvement since that visit. Patient has hx of HTN, GERD, anemia, vit b12 def, depression, and those as below. No other concerns today. Denies any changes. Past medical history, appointments, medications, allergies reviewed. 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 Hydrocele, bilateral 02/23/201902/2019: Inguinal hernia Injury, other and unspecified 1996 Crush injury in 1996 to left leg - multiple reconstructive surgeries including rectus flap Internal hemorrhoids 04/25/2020 Left varicocele 02/23/201902/2019: LGI bleed 05/18/2011 Major depressive disorder in remission (HCC) 08/20/2018 Medicare annual wellness visit, subsequent 02/17/2019 Medicare part B: 03/14/2013 last done: 04/25/2020 MRSA pneumonia (HCC) 12/12/2016 admitted [facility], + sputum for MRSA Neck pain 05/15/2016 Nocturia 06/21/2011 Obesity, Class I, BMI 30-34.9 08/20/2018 Renal cyst, acquired 06/21/2011 Sebaceous cyst 02/17/2019 Small right lower back Urge incontinence 08/20/2018 Urgency of micturation 06/21/2011 Urinary calculus, unspecified Renal stones Vitamin B12 deficiency 08/21/2018 Previous Surgical History PAST SURGICAL HISTORY Procedure Laterality Date COLONOSCOPY FLX DX W/COLLJ SPEC WHEN PFRMD 06/01/11 COLONOSCOPY FLX DX W/COLLJ SPEC WHEN PFRMD 04/06/2018 repeat 10 years DECOMPRESS ANT/LAT+POST LEG CMPART 1996 6 operations - traumatic leg injury (Left) EGD TRANSORAL BIOPSY SINGLE/MULTIPLE 12/07/11 EGD TRANSORAL BIOPSY SINGLE/MULTIPLE 01/22/12 resolved esophagitis, improved gastritis ESOPHAGOGASTRODUODENOSCOPY TRANSORAL DIAGNOSTIC 04/06/2018 EGD LEXISCAN STRESS TEST 09/30/2019 Negative RPR 1ST INGUN HRNA AGE 4 YRS/> REDUCIBLE bilater SIMPLE INTRACRANIAL ARYSM CAROTID CIRCULATION 2004 Intracranial aneurysm -- [facility] Family History FAMILY HISTORY Problem Relation Age of Onset Cancer Mother Headache Mother Hypertension Mother Psychiatry Mother DEPRESSION Cancer Father Headache Father Hypertension Father Hearing Loss Father Psychiatry Father DEPRESSION None Brother Alcohol/Drug Brother Psychiatry Sister DEPRESSION Psychiatry Brother DEPRESSION Psychiatry Maternal Grandmother DEPRESSION Osteoporosis Sister Colon Cancer Other no first-degree Coronary Artery Disease Other none Patient Allergies ALLERGIES No Known Allergies Current Medications Current Outpatient Medications on File Prior to Visit Medication Sig finasteride (PROSCAR) 5 mg tablet Take 1 tablet by mouth once daily. oxybutynin ER (DITROPAN XL) 10 mg 24 hr tablet Take 1 tablet by mouth once daily. FLUoxetine (PROZAC) 40 mg capsule Take 1 capsule by mouth once daily. Take with 10mg capsule for total daily dose of 50mg. labetalol (TRANDATE) 100 mg tablet Take 1 tablet by mouth twice daily. pravastatin (PRAVACHOL) 40 mg tablet Take 1 tablet by mouth daily at bedtime. levothyroxine (SYNTHROID) 125 mcg tablet Take 1 tablet by mouth once daily. FLUoxetine (PROZAC) 10 mg capsule Take 1 capsule by mouth once daily. Take in addition to the 40mg dose for total daily dose of 50mg. potassium chloride (KLOR-CON 10) 10 mEq tablet Take 2 tablets by mouth twice daily. famotidine (PEPCID) 20 mg tablet Take 1 tablet by mouth once daily. ferrous sulfate 325 mg (65 mg iron) tablet Take 1 tablet by mouth daily with breakfast. cyanocobalamin (VITAMIN B-12) 1,000 mcg tab Take 1 tablet by mouth once daily. aspirin, enteric coated (ADULT LOW DOSE ASPIRIN) 81 mg EC tablet Take 1 tablet by mouth once daily. No current facility-administered medications on file prior to visit. Social History Social History Tobacco Use Smoking status: Former Smoker Packs/day: 1.00 Years: 20.00 Pack years: 20.00 Types: Cigarettes Quit date: 10/14/1996 Years since quittin.4 Smokeless tobacco: Never Used Vaping Use Vaping Use: Never used Substance Use Topics Alcohol use: No Drug use: No Review of Symptoms REVIEW OF SYSTEMS GENERAL: No weight loss, malaise or fevers NECK: Negative for lumps, goiter, pain and significant neck swelling RESPIRATORY: Negative for worsening cough, hemoptysis, wheezing, COPD, dyspnea or shortness of breath CARDIOVASCULAR:+stable leg swelling. Negative for chest pain, hypertension, CHF or palpitations NEURO: No history of headaches, syncope, paralysis, seizures or tremors EXAM: BP 120/82 (BP Site: Left Arm, BP Position: Sitting, BP Cuff Size: Large Adult) Pulse (!) 56 Temp 36.3 C (97.4 F) Resp 20 Wt 109.8 kg (242 lb) BMI 33.75 kg/m General Appearance: Well appearing, alert, in no acute distress, well-hydrated, well nourished.. Neck: Supple, no adenopathy; thyroid symmetric, normal size, no bruits. Lungs: Lungs with scattered wheezes noted. Heart: RRR without murmur, gallop, or rubs. No ectopy. Extremities: deformity of left calf/lemus. 1+ edema bilaterally.. Peripheral Pulses: Normal. Health Maintenance List HIV SCREENING Never done SHINGRIX VACCINE(1 of 2) Never done DTAP,TDAP,TD(2 - Td or Tdap) due on 04/05/2019 BP CONTROLLED (<130/80) due on 04/25/2021 COVID-19 VACCINE(4 - Booster for Pfizer series) due on 01/06/2022 ANNUAL PCP TEAM CHRONIC DISEASE VISIT due on 10/03/2022 DIABETES SCREEN due on 03/01/2025 LIPID SCREEN due on 05/24/2026 PROSTATE CANCER SCREENING DISCUSSION due on 03/23/2027 COLORECTAL CANCER SCREENING due on 04/06/2029 INFLUENZA Completed HEPATITIS C SCREENING Completed Data reviewed Component Latest Ref Rng & Units 03/01/2022 WBC 3.70 - 11.00 k/uL 5.63 RBC 4.20 - 6.00 m/uL 4.09 (L) Hemoglobin 13.0 - 17.0 g/dL 12.8 (L) Hematocrit 39.0 - 51.0 % 38.8 (L) MCV 80.0 - 100.0 fL 94.9 MCH 26.0 - 34.0 pg 31.3 MCHC 30.5 - 36.0 g/dL 33.0 RDW-CV 11.5 - 15.0 % 13.5 Platelet Count 150 - 400 k/uL 223 MPV 9.0 - 12.7 fL 10.5 Neut% % 68.0 Abs Neut (ANC) 1.45 - 7.50 k/uL 3.83 Lymph% % 14.2 Abs Lymph 1.00 - 4.00 k/uL 0.80 (L) [place]% % 9.2 Abs [place] <0.87 k/uL 0.52 Eosin% % 7.3 Abs Eosin <0.46 k/uL 0.41 Baso% % 1.1 Abs Baso <0.11 k/uL 0.06 Immature Gran % % 0.2 IMMATURE GRANS (ABS) <0.10 k/uL <0.03 NRBC /100 WBC 0.0 Absolute nRBC <0.01 k/uL <0.01 DTYPE Auto Protein, Total 6.3 - 8.0 g/dL 6.8 Albumin 3.9 - 4.9 g/dL 3.8 (L) Calcium 8.5 - 10.2 mg/dL 9.2 Bilirubin, Total 0.2 - 1.3 mg/dL 1.8 (H) Alkaline Phosphatase 38 - 113 U/L 76 AST 14 - 40 U/L 44 (H) ALT 10 - 54 U/L 36 Glucose 74 - 99 mg/dL 94 BUN 9 - 24 mg/dL 7 (L) Creatinine 0.73 - 1.22 mg/dL 0.79 Sodium 136 - 144 mmol/L 142 Potassium 3.7 - 5.1 mmol/L 4.4 Chloride 97 - 105 mmol/L 106 (H) CO2 22 - 30 mmol/L 25 Anion Gap 9 - 18 mmol/L 11 eGFR >=60 mL/min/1.73m 100 TSH 0.270 - 4.200 mIU/L 1.810 ASSESSMENT/PLAN: 1. Essential hypertension with goal blood pressure less than 140/90 - ICD9: 401.9, ICD10: I10 (primary diagnosis) - good control - Continue current medication(s) - Recommended regular aerobic exercise. - Recommend home blood pressure monitoring, to bring results in on next visit - Goal of BP <130/80 - COMP METABOLIC PANEL - URINALYSIS, WITH MICROSCOPIC 2. Anemia due to vitamin B12 deficiency, unspecified B12 deficiency type - ICD9: 281.1, ICD10: D51.9 Check: - CBC + DIFF - VITAMIN B12 BLOOD 3. Vitamin B12 deficiency - ICD9: 266.2, ICD10: E53.8 Check labs 4. Acquired hypothyroidism - ICD9: 244.9, ICD10: E03.9 - Instructed patient on importance of taking on an empty stomach either first thing in the morning or at bedtime. - TSH BLD 5. Encounter for lipid screening for cardiovascular disease - ICD9: V77.91, V81.2, ICD10: Z13.220, Z13.6 - LIPID PANEL, NONFASTING 6. Ex-smoker - ICD9: V15.82, ICD10: Z87.891 Discussed PFT Patient will consider. 7. Obesity, Class I, BMI 30-34.9 - ICD9: 278.00, ICD10: E66.9 Stable - Behavioral intervention 8. Major depressive disorder in remission, unspecified whether recurrent (HCC) - ICD9: 296.25, ICD10: F32.5 stable 9. Leg swelling - ICD9: 729.81, ICD10: M79.89 Appears stable Patient elects to monitor. Enmanuel Cano PA-C documented in this encounter [facility] 03-07-2022 Miscellaneous Notes The following approved medication requests have been transmitted electronically. Signed Prescriptions Disp Refills FLUoxetine (PROZAC) 40 mg capsule 90 capsule 1 Sig: Take 1 capsule by mouth once daily. Take with 10mg capsule for total daily dose of 50mg. MARIANNE: No Authorizing Provider: ENMANUEL CANO PA-C Last refill 08/10/21 Qty: 90 with 1 refill Pt has appt 03/09/22 Eliceo Grace LPN documented in this encounter [facility] 03-01-2022 Instructions Dilcia Boland APRN.DRAFTING ENGINEER - 03/01/2022 3:20 PM EDT Appears to be from fluid retention, which is better today, does not appear to be infected. Will check labs, and set up follow with PCP for recheck. documented in this encounter [facility] 03-01-2022 History of Presen t illness Narrative Images from the original note were not included. Subjective The history is provided by the patient. No bed spring maker was used. [facility] General Blake Buckner is a 61 year old male who presents today for CC of possible infection of left lower leg. He has redness and swelling earlier in the week, but states that it looks better today. He has a hx of left leg injury, where it was crushed, as had bone, muscle, and skin grafts done. He denies any fever chills or body aches. 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 Hydrocele, bilateral 02/23/2019 US 02/2019: Inguinal hernia Injury, other and unspecified 1996 Crush injury in 1996 to left leg - multiple reconstructive surgeries including rectus flap Internal hemorrhoids 04/25/2020 Left varicocele 02/23/2019 US 02/2019: LGI bleed 05/18/2011 Major depressive disorder in remission (HCC) 08/20/2018 Medicare annual wellness visit, subsequent 02/17/2019 Medicare part B: 03/14/2013 last done: 04/25/2020 MRSA pneumonia ([facility]) 12/12/2016 admitted [facility], + sputum for MRSA Neck pain 05/15/2016 Nocturia 06/21/2011 Obesity, Class I, BMI 30-34.9 08/20/2018 Renal cyst, acquired 06/21/2011 Sebaceous cyst 02/17/2019 Small right lower back Urge incontinence 08/20/2018 Urgency of micturation 06/21/2011 Urinary calculus, unspecified Renal stones Vitamin B12 deficiency 08/21/2018 I have confirmed and edited as necessary, the [facility] Review of Systems Constitutional: Negative for chills and fever. Musculoskeletal: Negative for joint pain and myalgias. Skin: Negative for itching and rash. Left lower leg redness, swelling All other systems reviewed and are negative. Objective Physical Exam Vitals and nursing note reviewed. Cardiovascular: Pulses: Posterior tibial pulses are 2+ on the right side and 2+ on the left side. Pulmonary: Effort: Pulmonary effort is normal. Musculoskeletal: Legs: Skin: General: Skin is warm and dry. Neurological: Mental Status: He is alert and oriented to person, place, and time. Sensory: Sensation is intact. Psychiatric: Mood and Affect: Affect normal. ASSESSMENT/PLAN: 1. Localized swelling of left lower leg - ICD9: 782.2, ICD10: R22.42 Appears to be improved today Will check labs, if elevated white count possibly start antibiotic If negative and labs normal has follow up next week with [facility] for possible diuretic adjustment/medication change - COMP METABOLIC PANEL - CBC + DIFF Diagnosis and treatment plan were discussed and questions were answered to the patient's satisfaction. Pt acknowledged understanding of concepts and follow up plan. Specific signs and symptoms that would indicate the need for higher level of care were discussed in detail warranting prompt ER evaluation. Dilcia Boland APRN.ERIKA documented in this encounter [facility] 03-01-2022 Miscellaneous Notes reports patient has hx of left leg injury, where it was crushed. Has had bone, muscle, and skin grafts done and hx of infections in this leg. Reports for the past few days, patient has reddness, swelling, pain in left lower leg, and concern of infection again. No blisters, no red streaks, no fever. No appts available in pcp office. Agreeable to for evaluation. documented in this encounter [facility] 02-06-2022 Miscellaneous Notes Mailed handicap plaq Tiffanie Contreras Ma Left message for if she would like mailed or going to grape picker at office. Also sent [employer] message. Sharmaine Lyons MA Form ready for patient. Please see message regarding pt. Eliceo Grace LPN documented in this encounter [facility] 02-05-2022 Miscellaneous Notes Please see message. Does not look like pt had x-ray and no recent pt referral in [facility]. Eliceo Grace LPN documented in this encounter [facility] 02-04-2022 History of Presen t illness Narrative CC: Patient presents with: Cough: head and nasal congestion, sore throat x 6 days HPI: General Blake Buckner is a 61 year old male who presents to the office with complaint of head congestion, cough, nonproductive and mucus production for a week. Symptoms are worsening Associated symptoms includes nasal congestion. Denies fever, nausea, vomiting and diarrhea. Treatments tried include nothing so far. with no relief of symptoms. Sick contacts: unknown. History of asthma, frequent episodes of bronchitis, chronic bronchitis, bronchiectasis or COPD: No Smoker: No Seasonal/environmental allergies: No The ROS is otherwise negative. The patient's pmh, medications, allergies, and past visits are reviewed. PHYSICAL EXAM: BP 112/74 Pulse 80 Temp 37.1 C (98.8 F) Resp 18 Wt 108.9 kg (240 lb) SpO2 95% BMI 34.75 kg/m General appearance: alert, cooperative, pleasant, in no acute distress Head: Normocephalic Eyes: EOM's intact, conjunctiva pink and moist, no icterus, sclera white, non-injected Ears: Right ear: External ear/canal- Normal, TM - clear with good landmarks. Left ear: External ear/canal- Normal, TM - clear with good landmarks Oropharynx:moist without lesions, No erythema, exudates or tonsillar hypertrophy. Heart: Negative. RRR without obvious murmur, gallop, or rubs. No ectopy. 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 Hydrocele, bilateral 02/23/2019 US 02/2019: Inguinal hernia Injury, other and unspecified 1996 Crush injury in 1996 to left leg - multiple reconstructive surgeries including rectus flap Internal hemorrhoids 04/25/2020 Left varicocele 02/23/201902/2019: LGI bleed 05/18/2011 Major depressive disorder in remission (HCC) 08/20/2018 Medicare annual wellness visit, subsequent 02/17/2019 Medicare part B: 03/14/2013 last done: 04/25/2020 MRSA pneumonia ([facility]) 12/12/2016 admitted [facility], + sputum for MRSA Neck pain 05/15/2016 Nocturia 06/21/2011 Obesity, Class I, BMI 30-34.9 08/20/2018 Renal cyst, acquired 06/21/2011 Sebaceous cyst 02/17/2019 Small right lower back Urge incontinence 08/20/2018 Urgency of micturation 06/21/2011 Urinary calculus, unspecified Renal stones Vitamin B12 deficiency 08/21/2018 PAST SURGICAL HISTORY Procedure Laterality Date COLONOSCOPY FLX DX W/COLLJ SPEC WHEN PFRMD 06/01/11 COLONOSCOPY FLX DX W/COLLJ SPEC WHEN PFRMD 04/06/2018 repeat 10 years DECOMPRESS ANT/LAT+POST LEG CMPART 1996 6 operations - traumatic leg injury (Left) EGD TRANSORAL BIOPSY SINGLE/MULTIPLE 12/07/11 EGD TRANSORAL BIOPSY SINGLE/MULTIPLE 01/22/12 resolved esophagitis, improved gastritis ESOPHAGOGASTRODUODENOSCOPY TRANSORAL DIAGNOSTIC 04/06/2018 EGD LEXISCAN STRESS TEST 09/30/2019 Negative RPR 1ST INGUN HRNA AGE 4 YRS/> REDUCIBLE bilater SIMPLE INTRACRANIAL ARYSM CAROTID CIRCULATION 2004 Intracranial aneurysm -- [facility] ALLERGIES Patient has no known allergies. MEDICATIONS labetalol (TRANDATE) 100 mg tablet Take 1 tablet by mouth twice daily. pravastatin (PRAVACHOL) 40 mg tablet Take 1 tablet by mouth daily at bedtime. levothyroxine (SYNTHROID) 125 mcg tablet Take 1 tablet by mouth once daily. finasteride (PROSCAR) 5 mg tablet Take 1 tablet by mouth once daily. oxybutynin ER (DITROPAN XL) 10 mg 24 hr tablet Take 1 tablet by mouth once daily. FLUoxetine (PROZAC) 10 mg capsule Take 1 capsule by mouth once daily. Take in addition to the 40mg dose for total daily dose of 50mg. potassium chloride (KLOR-CON 10) 10 mEq tablet Take 2 tablets by mouth twice daily. FLUoxetine HCl (PROZAC) 40 mg capsule Take 1 capsule by mouth once daily. famotidine (PEPCID) 20 mg tablet Take 1 tablet by mouth once daily. ferrous sulfate 325 mg (65 mg iron) tablet Take 1 tablet by mouth daily with breakfast. cyanocobalamin (VITAMIN B-12) 1,000 mcg tab Take 1 tablet by mouth once daily. aspirin, enteric coated (ADULT LOW DOSE ASPIRIN) 81 mg EC tablet Take 1 tablet by mouth once daily. doxycycline (VIBRA-TABS) 100 mg tablet Take 1 tablet by mouth twice daily for 10 days. predniSONE (DELTASONE) 20 mg tablet Take 1 tablet by mouth once daily for 4 days. Take daily with food. FAMILY HISTORY Problem Relation Age of Onset Cancer Mother Headache Mother Hypertension Mother Psychiatry Mother DEPRESSION Cancer Father Headache Father Hypertension Father Hearing Loss Father Psychiatry Father DEPRESSION None Brother Alcohol/Drug Brother Psychiatry Sister DEPRESSION Psychiatry Brother DEPRESSION Psychiatry Maternal Grandmother DEPRESSION Osteoporosis Sister Colon Cancer Other no first-degree Coronary Artery Disease Other none Social History Tobacco Use Smoking status: Former Smoker Packs/day: 1.00 Years: 20.00 Pack years: 20.00 Types: Cigarettes Quit date: 10/14/1996 Years since quittin.3 Smokeless tobacco: Never Used Vaping Use Vaping Use: Never used Substance Use Topics Alcohol use: No Drug use: No ASSESSMENT/PLAN: 1. Cough - ICD9: 786.2, ICD10: R05.9 Prescription instructions reviewed with patient as applicable. Doxycycline bid for 10 days, prednisone 40mg daily for 4 days Potential red flag symptoms discussed with the patient. Reviewed appropriate action plan to take if red flag symptoms occur. Patient agreeable to treatment plan. Aylin Lyons APRN.ERIKA documented in this encounter [facility] 01-29-2022 Miscellaneous Notes Patient has been identified by name and date of : Yes Patient phones for refill(s): Pending Prescriptions Disp Refills LABETALOL 100 MG TABLET 180 tablet 1 Sig: Take 1 tablet by mouth twice daily. MARIANNE: No Date of last office visit in primary care: OV on 10/03/2021 No appointment scheduled Last 2 Encounter Wt Readings: Date: Wt: 12/24/2021 117.9 kg (260 lb) 10/03/2021 113.4 kg (250 lb) Please advise. Thank you. MARYA Beaulieu documented in this encounter [facility] documented as of this encounter (statuses as of 01/29/2022) [facility] History of Past illness Narrative* Problem Noted Date Resolved Date Abdominal pain, epigastric 01/22/201201/04 Kim infection, esophageal 12/07/2011 documented as of this encounter (statuses as of 02/04/2022) [facility] History of Past illness Narrative* Problem Noted Date Resolved Date Abdominal pain, epigastric 01/22/201201/04 Kim infection, esophageal 12/07/2011 documented as of this encounter (statuses as of 02/05/2022) [facility] History of Past illness Narrative* Problem Noted Date Resolved Date Abdominal pain, epigastric 01/22/201201/04 Kim infection, esophageal 12/07/2011 documented as of this encounter (statuses as of 02/06/2022) [facility] History of Past illness Narrative* Problem Noted Date Resolved Date Abdominal pain, epigastric 01/22/201201/04 Kim infection, esophageal 12/07/2011 documented as of this encounter (statuses as of 03/01/2022) [address]10-2012 History of Past illness Narrative* Problem Noted Date Resolved Date Abdominal pain, epigastric 01/22/201201/04 Kim infection, esophageal 12/07/2011 documented as of this encounter (statuses as of 03/01/2022) [address]10-2012 History of Past illness Narrative* Problem Noted Date Resolved Date Abdominal pain, epigastric 01/22/201201/04 Kim infection, esophageal 12/07/2011 documented as of this encounter (statuses as of 03/07/2022) [address]10-2012 History of Past illness Narrative* Problem Noted Date Resolved Date Abdominal pain, epigastric 01/22/201201/04 Kim infection, esophageal 12/07/2011 documented as of this encounter (statuses as of 04/03/2022) [address]-2012 History of Past illness Narrative* Problem Noted Date Resolved Date Abdominal pain, epigastric 01/22/201201/04 Kim infection, esophageal 12/07/2011 documented as of this encounter (statuses as of 04/05/2022) [address]-2012 History of Past illness Narrative* Problem Noted Date Resolved Date Abdominal pain, epigastric 01/22/201201/04 Kim infection, esophageal 12/07/2011 documented as of this encounter (statuses as of 04/20/2022) [address]-2012 History of Past illness Narrative* Problem Noted Date Resolved Date Abdominal pain, epigastric 01/22/201201/04 Kim infection, esophageal 12/07/2011 documented as of this encounter (statuses as of 05/21/2022) [address]-2012 History of Past illness Narrative* Problem Noted Date Resolved Date Abdominal pain, epigastric 01/22/201201/04 Kim infection, esophageal 12/07/2011 documented as of this encounter (statuses as of 05/23/2022) [address]-2012 History of Past illness Narrative* Problem Noted Date Resolved Date Abdominal pain, epigastric 01/22/201201/04 Kim infection, esophageal 12/07/2011 documented as of this encounter (statuses as of 06/19/2022) [address]-2012 History of Past illness Narrative* Problem Noted Date Resolved Date Abdominal pain, epigastric 01/22/201201/04 Kim infection, esophageal 12/07/2011 documented as of this encounter (statuses as of 08/13/2022) [address]-2012 History of Past illness Narrative* Problem Noted Date Resolved Date Abdominal pain, epigastric 01/22/201201/04 Kim infection, esophageal 12/07/2011 documented as of this encounter (statuses as of 08/22/2022) [address]-2012 History of Past illness Narrative* Problem Noted Date Resolved Date Abdominal pain, epigastric 01/22/201201/04 Kim infection, esophageal 12/07/2011 documented as of this encounter (statuses as of 09/17/2022) [address]-2012 History of Past illness Narrative* Problem Noted Date Resolved Date Abdominal pain, epigastric 01/22/201201/04 Kim infection, esophageal 12/07/2011 documented as of this encounter (statuses as of 10/05/2022) [address]-2012 History of Past illness Narrative* Problem Noted Date Resolved Date Abdominal pain, epigastric 01/22/201201/04 Kim infection, esophageal 12/07/2011 documented as of this encounter (statuses as of 10/25/2022) [address]-2012 History of Past illness Narrative* Problem Noted Date Resolved Date Abdominal pain, epigastric 01/22/201201/04 Kim infection, esophageal 12/07/2011 documented as of this encounter (statuses as of 10/25/2022) [address]-2012 History of Past illness Narrative* Problem Noted Date Resolved Date Abdominal pain, epigastric 01/22/201201/04 Kim infection, esophageal 12/07/2011 documented as of this encounter (statuses as of 11/26/2022) [address]-2012 History of Past illness Narrative* Problem Noted Date Resolved Date Abdominal pain, epigastric 01/22/201201/04 Kim infection, esophageal 12/07/2011 documented as of this encounter (statuses as of 12/27/2022) [address]-2012 History of Past illness Narrative* Problem Noted Date Resolved Date Abdominal pain, epigastric 01/22/201201/04 Kim infection, esophageal 12/07/2011 documented as of this encounter (statuses as of 12/27/2022) [address]-2012 History of Past illness Narrative* Problem Noted Date Resolved Date Abdominal pain, epigastric 01/22/201201/04 Kim infection, esophageal 12/07/2011 documented as of this encounter (statuses as of 12/28/2022) [address]-2012 History of Past illness Narrative* Problem Noted Date Resolved Date Abdominal pain, epigastric 01/22/201201/04 Kim infection, esophageal 12/07/2011 documented as of this encounter (statuses as of 01/01/2023) [address]-2012 History of Past illness Narrative* Problem Noted Date Resolved Date Abdominal pain, epigastric 01/22/201201/04 Kim infection, esophageal 12/07/2011 documented as of this encounter (statuses as of 01/16/2023) [address]-2012 History of Past illness Narrative* Problem Noted Date Resolved Date Abdominal pain, epigastric 01/22/201201/04 Kim infection, esophageal 12/07/2011 documented as of this encounter (statuses as of 02/14/2023) [address]-2012 History of Past illness Narrative* Problem Noted Date Resolved Date Abdominal pain, epigastric 01/22/201201/04 Kim infection, esophageal 12/07/2011 documented as of this encounter (statuses as of 02/14/2023) [address]-2012 History of Past illness Narrative* Problem Noted Date Resolved Date Abdominal pain, epigastric 01/22/201201/04 Kim infection, esophageal 12/07/2011 documented as of this encounter (statuses as of 03/18/2023) [address]-2012 History of Past illness Narrative* Problem Noted Date Resolved Date Abdominal pain, epigastric 01/22/201201/04 Kim infection, esophageal 12/07/2011 documented as of this encounter (statuses as of 03/21/2023) [address]-2012 History of Past illness Narrative* Problem Noted Date Resolved Date Abdominal pain, epigastric 01/22/201201/04 Kim infection, esophageal 12/07/2011 documented as of this encounter (statuses as of 04/19/2023) [address]-2012 History of Past illness Narrative* Problem Noted Date Diagnosed Date Resolved Date Abdominal pain, epigastric 01/22/2012 0 01/05/2016 Kim infection, esophageal 12/07/2011 03/22/2016 documented as of this encounter (statuses as of 04/20/2023) [address]-2012 History of Past illness Narrative* Problem Noted Date Diagnosed Date Resolved Date Abdominal pain, epigastric 01/22/2012 0 01/05/2016 Kim infection, esophageal 12/07/2011 03/22/2016 documented as of this encounter (statuses as of 04/23/2023) [address]-2012 History of Past illness Narrative* Problem Noted Date Diagnosed Date Resolved Date Abdominal pain, epigastric 01/22/2012 0 01/05/2016 Kim infection, esophageal 12/07/2011 03/22/2016 documented as of this encounter (statuses as of 08/18/2023) [facility] Localized swelling of left lower leg- [facility] Diagnosis Essential hypertension with goal blood pressure less than 140/90- Primary Anemia due to vitamin B12 deficiency, unspecified B12 deficiency type Vitamin B12 deficiency Other B-complex deficiencies Acquired hypothyroidism Unspecified hypothyroidism Encounter for lipid screening for cardiovascular disease Screening for lipoid disorders Ex-smoker Personal history of tobacco use, presenting hazards to health Obesity, Class I, BMI 30-34.9 Obesity, unspecified Major depressive disorder in remission, unspecified whether recurrent (HCC) Leg swelling Swelling of limb [facility] Diagnosis Anemia, unspecified type- Primary Hypokalemia Hypopotassemia documented in this encounter [facility] note* Diagnosis Anemia, unspecified type- Primary documented in this encounter [facility] note* Diagnosis Hypothyroidism, acquired Unspecified hypothyroidism documented in this encounter [facility] note* Diagnosis Medicare annual wellness visit, subsequent- Primary Routine general medical examination at a health care facility Essential hypertension with goal blood pressure less than 140/90 Acquired hypothyroidism Unspecified hypothyroidism GERD without esophagitis Esophageal reflux Anemia due to vitamin B12 deficiency, unspecified B12 deficiency type History of intracranial aneurysm Transient ischemic attack (TIA), and cerebral infarction without residual deficits Major depressive disorder in remission, unspecified whether recurrent (HCC) Vitamin B12 deficiency Other B-complex deficiencies Obesity, Class I, BMI 30-34.9 Obesity, unspecified Urge incontinence Acute pain of left shoulder Bilateral impacted cerumen Impacted cerumen Hernia, inguinal, right Inguinal hernia without mention of obstruction or gangrene, unilateral or unspecified, (not specified as recurrent) Prostate disorder Unspecified disorder of prostate documented in this encounter [facility] note* Diagnosis Primary hypertension- Primary Unspecified essential hypertension Acquired hypothyroidism Unspecified hypothyroidism Vitamin B12 deficiency Other B-complex deficiencies documented in this encounter [facility] note* Diagnosis Vitamin B12 deficiency- Primary Other B-complex deficiencies documented in this encounter [facility] note* Diagnosis Acute pain of left shoulder- Primary documented in this encounter [facility] note* Diagnosis Acquired hypothyroidism- Primary Unspecified hypothyroidism documented in this encounter [facility] note* Diagnosis Nocturia- Primary Urge incontinence documented in this encounter [facility] note* Diagnosis History of intracranial aneurysm Transient ischemic attack (TIA), and cerebral infarction without residual deficits documented in this encounter [facility] for referral (narrative)* Diagnostic Procedure Only (Routine) - Pending Review Specialty Diagnoses / Procedures Referred By Contanila t Referred To Contact XR IMAGING Diagnoses Acute pain of left shoulder Procedures XR SHOULDER GENERAL 3V OR MORE AP/TRUE AP/OTHER LEFT RADEX SHOULDER COMPLETE MINIMUM [address] Lowery MD [address] [place] [address] Xr Imaging Referral ID Status Reason Start Date Expiration Date Visits Requested Visits Authorized [id number] Pending Review Auto-Generat ed Referral 2 11/02/2023 1 1 [facility] Advance Directives No Advanced Directives Records FoundDocuments on File Type Date Recorded Patient [employer] Expl anation Advance Directive(s) 04/06/2019 9:27 AM Reason for Referral Specialty Diagnoses / Procedures Referred By Contac t Referred To Contact [facility] Diagnoses Acute pain of left shoulder Procedures CONSULT TO PHYSICAL THERAPY PHYSICAL THERAPY EVALUATION HIGH COMPLEX 45 MINS Enmanuel Cano PA-C [address] [place] [address] [facility] [address] [place] [address] Referral ID Status Reason Start Date Expiration Date Visits Requested Visits Authorized [id number] Pending Review Auto-Generat ed Referral 10/26/2022 10/26/2023 1 1 Specialty Diagnoses / Procedures Referred By Contac t Referred To Contact CT IMAGING Diagnoses History of intracranial aneurysm Procedures CT BRAIN WO IVCON CT HEAD/BRAIN W/O CONTRAST MATERIAL Preeti Will APRN.DRAFTING ENGINEER [address] [place] [address] Ct Imaging [facility] Referral ID Status Reason Start Date Expiration Date V isits Requested Visits Authorized [id number] Closed Auto-Generate d Referral 04/18/2023 05/18/2023 1 1 Summary Purpose Family History No Family History Records Found Additional Source Comments Source Comments (unrecognize d section and content) In the event this informatio n is protected by the Federal Confidentiality of Alcohol and Drug Abuse Patient Records regulations: The Federal rules restrict any use of the information to criminally investigate or prosecute any alcohol or drug abuse patient.[facility] event this information is protected by the Federal Confidentiality of Alcohol and Drug Abuse Patient Records regulations: The Federal rules restrict any use of the information to criminally investigate or prosecute any alcohol or drug abuse patient.[facility] the event this information is protected by the Federal Confidentiality of Alcohol and Drug Abuse Patient Records regulations: The Federal rules restrict any use of the information to criminally investigate or prosecute any alcohol or drug abuse patient.[facility] the event this information is protected by the Federal Confidentiality of Alcohol and Drug Abuse Patient Records regulations: The Federal rules restrict any use of the information to criminally investigate or prosecute any alcohol or drug abuse patient.[facility] the event this information is protected by the Federal Confidentiality of Alcohol and Drug Abuse Patient Records regulations: The Federal rules restrict any use of the information to criminally investigate or prosecute any alcohol or drug abuse patient.[facility] the event this information is protected by the Federal Confidentiality of Alcohol and Drug Abuse Patient Records regulations: The Federal rules restrict any use of the information to criminally investigate or prosecute any alcohol or drug abuse patient.[facility] the event this information is protected by the Federal Confidentiality of Alcohol and Drug Abuse Patient Records regulations: The Federal rules restrict any use of the information to criminally investigate or prosecute any alcohol or drug abuse patient.[facility] the event this information is protected by the Federal Confidentiality of Alcohol and Drug Abuse Patient Records regulations: The Federal rules restrict any use of the information to criminally investigate or prosecute any alcohol or drug abuse patient.[facility] the event this information is protected by the Federal Confidentiality of Alcohol and Drug Abuse Patient Records regulations: The Federal rules restrict any use of the information to criminally investigate or prosecute any alcohol or drug abuse patient.[facility] the event this information is protected by the Federal Confidentiality of Alcohol and Drug Abuse Patient Records regulations: The Federal rules restrict any use of the information to criminally investigate or prosecute any alcohol or drug abuse patient.[facility] the event this information is protected by the Federal Confidentiality of Alcohol and Drug Abuse Patient Records regulations: The Federal rules restrict any use of the information to criminally investigate or prosecute any alcohol or drug abuse patient.[facility] the event this information is protected by the Federal Confidentiality of Alcohol and Drug Abuse Patient Records regulations: The Federal rules restrict any use of the information to criminally investigate or prosecute any alcohol or drug abuse patient.[facility] the event this information is protected by the Federal Confidentiality of Alcohol and Drug Abuse Patient Records regulations: The Federal rules restrict any use of the information to criminally investigate or prosecute any alcohol or drug abuse patient.[facility] the event this information is protected by the Federal Confidentiality of Alcohol and Drug Abuse Patient Records regulations: The Federal rules restrict any use of the information to criminally investigate or prosecute any alcohol or drug abuse patient.[facility] the event this information is protected by the Federal Confidentiality of Alcohol and Drug Abuse Patient Records regulations: The Federal rules restrict any use of the information to criminally investigate or prosecute any alcohol or drug abuse patient.[facility] the event this information is protected by the Federal Confidentiality of Alcohol and Drug Abuse Patient Records regulations: The Federal rules restrict any use of the information to criminally investigate or prosecute any alcohol or drug abuse patient.[facility] the event this information is protected by the Federal Confidentiality of Alcohol and Drug Abuse Patient Records regulations: The Federal rules restrict any use of the information to criminally investigate or prosecute any alcohol or drug abuse patient.[facility] the event this information is protected by the Federal Confidentiality of Alcohol and Drug Abuse Patient Records regulations: The Federal rules restrict any use of the information to criminally investigate or prosecute any alcohol or drug abuse patient.[facility] HospitalIn the event this information is protected by the Federal Confidentiality of Alcohol and Drug Abuse Patient Records regulations: The Federal rules restrict any use of the information to criminally investigate or prosecute any alcohol or drug abuse patient.[facility] HospitalIn the event this information is protected by the Federal Confidentiality of Alcohol and Drug Abuse Patient Records regulations: The Federal rules restrict any use of the information to criminally investigate or prosecute any alcohol or drug abuse patient.[facility] HospitalIn the event this information is protected by the Federal Confidentiality of Alcohol and Drug Abuse Patient Records regulations: The Federal rules restrict any use of the information to criminally investigate or prosecute any alcohol or drug abuse patient.[facility] HospitalIn the event this information is protected by the Federal Confidentiality of Alcohol and Drug Abuse Patient Records regulations: The Federal rules restrict any use of the information to criminally investigate or prosecute any alcohol or drug abuse patient.[facility] HospitalIn the event this information is protected by the Federal Confidentiality of Alcohol and Drug Abuse Patient Records regulations: The Federal rules restrict any use of the information to criminally investigate or prosecute any alcohol or drug abuse patient.[facility] HospitalIn the event this information is protected by the Federal Confidentiality of Alcohol and Drug Abuse Patient Records regulations: The Federal rules restrict any use of the information to criminally investigate or prosecute any alcohol or drug abuse patient.[facility] HospitalIn the event this information is protected by the Federal Confidentiality of Alcohol and Drug Abuse Patient Records regulations: The Federal rules restrict any use of the information to criminally investigate or prosecute any alcohol or drug abuse patient.[facility] HospitalIn the event this information is protected by the Federal Confidentiality of Alcohol and Drug Abuse Patient Records regulations: The Federal rules restrict any use of the information to criminally investigate or prosecute any alcohol or drug abuse patient.[facility] HospitalIn the event this information is protected by the Federal Confidentiality of Alcohol and Drug Abuse Patient Records regulations: The Federal rules restrict any use of the information to criminally investigate or prosecute any alcohol or drug abuse patient.[facility] HospitalIn the event this information is protected by the Federal Confidentiality of Alcohol and Drug Abuse Patient Records regulations: The Federal rules restrict any use of the information to criminally investigate or prosecute any alcohol or drug abuse patient.[facility] HospitalIn the event this information is protected by the Federal Confidentiality of Alcohol and Drug Abuse Patient Records regulations: The Federal rules restrict any use of the information to criminally investigate or prosecute any alcohol or drug abuse patient.[facility] HospitalIn the event this information is protected by the Federal Confidentiality of Alcohol and Drug Abuse Patient Records regulations: The Federal rules restrict any use of the information to criminally investigate or prosecute any alcohol or drug abuse patient.[facility] HospitalIn the event this information is protected by the Federal Confidentiality of Alcohol and Drug Abuse Patient Records regulations: The Federal rules restrict any use of the information to criminally investigate or prosecute any alcohol or drug abuse patient.[facility] HospitalIn the event this information is protected by the Federal Confidentiality of Alcohol and Drug Abuse Patient Records regulations: The Federal rules restrict any use of the information to criminally investigate or prosecute any alcohol or drug abuse patient.[facility] HospitalIn the event this information is protected by the Federal Confidentiality of Alcohol and Drug Abuse Patient Records regulations: The Federal rules restrict any use of the information to criminally investigate or prosecute any alcohol or drug abuse patient.[facility] Reason for Visit (unrecogniz ed section and content) Reason Comments Cough head and nasal conge stion, sore throat x 6 days Reason Comments Left leg issue Reason Comments Acute Visit left lower leg infec tion x 5 days Reason Onset Date Comments Refill Request 03/06/2022 Reason Comments Recheck was seen in Urgent [facility] are for left lower leg wound Reason Comments Results Reason Onset Date Comments Refill Request 05/20/2022 Reason Comments Results Reason Onset Date Comments Refill Request 06/17/2022 Reason Onset Date Comments Refill Request 08/11/2022 Reason Onset Date Comments Refill Request 08/21/2022 Reason Onset Date Comments Refill Request 09/15/2022 Reason Comments Medicare Wellness Exam Reason Comments Follow Up Reason Comments Medication Problem Reason Onset Date Comments Refill Request 11/23/2022 Reason Comments Results Reason Onset Date Comments Refill Request 01/01/2023 Reason Comments Refill Request Reason Onset Date Comments Refill Request 02/01/2023 Reason Onset Date Comments Refill Request 03/18/2023 Reason Onset Date Comments Refill Request Refill Request 04/22/[address] Specialty Diagnoses / Procedures Referred By Contac t Referred To Contact CT IMAGING Diagnoses History of intracranial aneurysm Procedures CT BRAIN WO IVCON CT HEAD/BRAIN W/O CONTRAST MATERIAL Preeti Will, [employer] ENGINE[employer] [address] [place] [address] [place] [address] Referral ID Status Reason Start Date Expiration Date V isits Requested Visits Authorized [id number] Closed Auto-Generate d Referral 04/18/2023 05/18/2023 1 1 Care Teams (unrecognized sec tion and content) Material Reprocessing Associate Relationship Specialty Start Date End Date Lane Lowery MD [address] [place] [address] PCP - General Family Practice 08/20/18 Material Reprocessing Associate Relationship Specialty Start Date End Date Lane Lowery MD [facility] [place] [address] PCP - General Family Practice 08/20/18 Material Reprocessing Associate Relationship Specialty Start Date End Date Lane Lowery MD [address] [place] [address], [place] [address] PCP - General Family Practice 08/20/18 Material Reprocessing Associate Relationship Specialty Start Date End Date Lane Lowery MD [address] [place] [address], [place] [address] PCP - General Family Practice 08/20/18 Material Reprocessing Associate Relationship Specialty Start Date End Date Lane Lowery MD [address] [place] [address], [place] [address] PCP - General Family Practice 08/20/18 Material Reprocessing Associate Relationship Specialty Start Date End Date Lane Lowery MD [address] [place] [address], [place] [address] PCP - General Family Practice 08/20/18 Material Reprocessing Associate Relationship Specialty Start Date End Date Lane Lowery MD [address] [place] [address], [place] [address] PCP - General Family Practice 08/20/18 Material Reprocessing Associate Relationship Specialty Start Date End Date Lane Lowery MD [address] [place] [address], [place] [address] PCP - General Family Practice 08/20/18 Material Reprocessing Associate Relationship Specialty Start Date End Date Lane Lowery MD [address] [place] [address], [place] [address] PCP - General Family Practice 08/20/18 Material Reprocessing Associate Relationship Specialty Start Date End Date Lane Lowery MD [address] [place] [address] PCP - General Family Medicine 08/20/18 Material Reprocessing Associate Relationship Specialty Start Date End Date Lane Lowery MD [facility] [place] [address] PCP - General Family Medicine 08/20/18 Material Reprocessing Associate Relationship Specialty Start Date End Date Lane Lowery MD [address] [place] [address], [place] [address] PCP - General Family Medicine 08/20/18 Material Reprocessing Associate Relationship Specialty Start Date End Date Lane Lowery MD [address] [place] [address], [place] [address] PCP - General Family Medicine 08/20/18 Material Reprocessing Associate Relationship Specialty Start Date End Date Lane Lowery MD [address] [place] [address], [place] [address] PCP - General Family Medicine 08/20/18 Material Reprocessing Associate Relationship Specialty Start Date End Date Lane Lowery MD [address] [place] [address], [place] [address] PCP - General Family Medicine 08/20/18 Material Reprocessing Associate Relationship Specialty Start Date End Date Lane Lowery MD [address] [place] [address], [place] [address] PCP - General Family Medicine 08/20/18 Material Reprocessing Associate Relationship Specialty Start Date End Date Lane Lowery MD [address] [place] [address], [place] [address] PCP - General Family Medicine 08/20/18 Material Reprocessing Associate Relationship Specialty Start Date End Date Lane Lowery MD [address] [place] [address], [place] [address] PCP - General Family Medicine 08/20/18 Material Reprocessing Associate Relationship Specialty Start Date End Date Lane Lowery MD [address] [place], [place] [id number] PCP - General Family [facility] 08/20/18 Material Reprocessing Associate Relationship Specialty Start Date End Date Lane Lowery MD [address] [place], [place] [address] PCP - General Family [facility] 08/20/18 Material Reprocessing Associate Relationship Specialty Start Date End Date Lane Lowery MD [address] [place], [place] [id number] PCP - General Family [facility] 08/20/18 (unrecognized sect ion and content) No Status Records Found INFORMATION SOURCE (unrecogn ized section and content) FOR RECORDS PERTAINING TO PATIENTS WHO ARE OR HAVE BEEN ENROLLED IN A CHEMICAL DEPENDENCY/SUBSTANCEABUSE PROGRAM, SOME INFORMATION MAY BE OMITTED. This clinical summary was aggregated from multiple sources. Caution should be exercised in using it in the provision of clinical care. This summary normalizes information from multiple sources, and as a consequence, information in this document may materially change the coding, format and clinical context of patient data. In addition, data may be omitted in some cases. CLINICAL DECISIONS SHOULD BE BASED ON THE PRIMARY CLINICAL RECORDS. [employer] provides no warranty or guarantee of the accuracy or completeness of information in this document.
== END | disposition home or self-care (01) ==
LOC: RAD 12:52
PROVIDERS: PCP Family Medicine; Referring Provider Family Medicine; Visit Provider Family Medicine
DX: R13.14 Dysphagia, pharyngoesophageal phase (principal)
CPT/HCPCS: 74230; 92611

== ENCOUNTER 2024-07-21 17:24 | Emergency (ER) | payer MEDICARE, SELFPAY ==
[2024-07-21 17:24] VITALS: BP 123/109; PULSE 69; RESP 16; TEMP 36.7; O2SAT 98; BMI 31.6
[2024-07-21 17:26] VITALS: BP 122/79; PULSE 73; RESP 16; TEMP 36.6; O2SAT 98
--- NOTE | 2024-07-21 17:42 | EX.ED.DYSGE1 ---
HPI History of Present Illness Chief Complaint: Cellulitis Detail of Chief Complaint: Cellulitis to left leg Informant: patient and spouse/S.O. Narrative Narrative: Patient presents with left leg redness and swelling that started 2 days ago. He denies fevers chills or sweats. Patient has had multiple surgeries on his left lower extremity back in 1996 due to a crush injury and has had skin grafts. Patient has had cellulitis multiple times in the past. He has been treated as an outpatient and as an inpatient for this. Patient denies recent travel or surgery. He denies chest pain or shortness of breath. [facility] Medical History (Updated 07/21/24 @ 19:[address] Ciro Alberto, DO) History of cellulitis Home Medications ?Medication ?Instructions ?Recorded ?Last Taken ?Type famotidine 20 mg tablet 20 mg PO DAILY gerd 05/18/16 12/04/18 History finasteride 5 mg tablet 5 mg PO DAILY htn 05/18/16 12/04/18 History pravastatin 40 mg tablet 40 mg PO QHS cholesterol 05/18/16 12/04/18 History aspirin 81 mg tablet,delayed 81 mg PO DAILY@0800 health 12/12/16 07/04/18 History release maintenance cyanocobalamin (vitamin B-12) 1,000 mcg PO DAILY supplement 12/04/18 12/04/18 History 1,000 mcg tablet fluoxetine 40 mg capsule 40 mg PO DAILY mental health 12/05/18 12/04/18 History labetalol 100 mg tablet 100 mg PO BID htn 12/05/18 12/04/18 History levothyroxine 75 mcg tablet 75 mcg PO DAILY hypothyroidism 12/05/18 12/04/18 History ferrous sulfate 325 mg (65 mg 325 mg PO DAILY 09/29/19 Unknown History iron) tablet oxybutynin chloride 5 mg tablet 10 mg PO DAILY bladder control 09/29/19 Unknown History cephalexin 500 mg capsule 500 mg PO Q6 #40 CAPSULES 07/21/24 Unknown Rx sulfamethoxazole 800 1 tab PO BID #20 TABLETS 07/21/24 Unknown Rx mg-trimethoprim 160 mg tablet Allergy/AdvReac Type Severity Reaction Status Date / Time No Known Allergies Allergy Verified 07/21/24 17:26 Social History Smoking Status: Former smoker ROS ROS ED Review of Systems ROS Unobtainable: other Constitutional Constitutional ED: Reports lethargy; Denies chills, fever(s), sweats or weight loss Eyes Eyes: Denies blurry vision, change in vision or diplopia ENT ENT ED: Denies rhinorrhea or sore throat Cardiovascular Cardiovascular: Denies chest pain, orthopnea or racing heartbeat Respiratory/Chest Respiratory/Chest: Denies cough, dyspnea, dyspnea on exertion, orthopnea or sputum Gastrointestinal Gastrointestinal: Denies abdominal pain, diarrhea, nausea or vomiting Genitourinary Genitourinary ED: Denies dysuria, hematuria or urinary frequency Musculoskeletal Musculoskeletal: Denies arthralgias, back pain, myalgias or neck pain Integumentary Reports other Details: Left leg redness and swelling ; Denies abscess, Abrasions or rash Neurologic Neurologic: Denies headache(s) or weakness Psychiatric Psychiatric: Denies anxiety, depression or suicidal thoughts Endocrine Endocrinology: Denies polydipsia, polyphagia or polyuria Hematologic/Lymphatic Hematologic/Lymphatic: Denies easy bleeding, easy bruising or lymphadenopathy Allergic/Immunologic Allergic/Immunologic ED: Denies mouth swelling, tongue swelling or urticaria EXAM Physical Exam Const Vital Signs: 07/21/24 17:24 07/21/24 17:26 07/21/24 18:26 Temperature 98.0 F 97.9 F 97.4 F L Temperature Source Oral Oral Oral Pulse Rate 69 73 54 L Respiratory Rate 16 16 16 Blood Pressure 123/109 H 122/79 H 131/107 H Blood Pressure Mean 113 93 115 Pulse Ox 98 98 95 Oxygen Delivery Method Room Air Room Air Room Air 07/21/24 19:00 Temperature 97.4 F L Temperature Source Temporal Pulse Rate 59 L Respiratory Rate 22 H Blood Pressure 142/86 H Blood Pressure Mean 104 Pulse Ox 97 Oxygen Delivery Method Room Air Positive well nourished and well developed General Appearance ED: well developed and NAD HEENT Reports TM's clear and moist mucous membranes normocephalic and atraumatic; Negative for trauma or tenderness Tympanic Membrane ED: Yes TM's clear Eyes PERRL and EOMs intact bilaterally General Eye ED: Negative for pale conjunctiva or scleral icterus Neck no lymphadenopathy, supple and no JVD General: Negative for tenderness Chest Wall inspection of chest normal and palpation of chest normal Chest: Negative for tenderness Resp normal respiratory effort and clear to auscultation bilaterally Effort and Inspection: Negative for respiratory distress or pain with movement Auscultation: Negative for rhonchi, wheezes or diminished lung sounds Cardio regular rate, regular rhythm, S1 normal heart sound, S2 normal heart sound and no murmurs Peripheral Pulses: pulses 2+ throughout GI normal to inspection, nondistended, normoactive bowel sounds, soft to palpation, non-tender, non-distended and no masses Back/Spine no CVA tenderness and no thoracic nor lumbar tenderness Extremity Extremity Narrative: Left lower extremity-patient has some diffuse soft tissue swelling from the knee down to the foot. He has old surgical wounds noted. There is faint erythema diffusely in the leg is warm to the touch compared to the opposite side. Normal pulses dorsal pedal posterior tib as well as popliteal. No ropes or cords palpated. General Extremety ED: Negative for edema General Extremity: Negative for edema Neuro oriented x3, CN's II-XII intact bilaterally, no sensory deficits noted and gait normal Sensorium / Orientation: awake, alert, oriented to person, oriented to place and oriented to time Motor Exam: strength 5/5 throughout and strength abnormal Psych mental status grossly normal Skin no rashes or lesions noted and no wounds MDM MDM MDM Narrative Medical decision making narrative: Patient presents with concern for cellulitis to his left lower extremity. History of prior cellulitis. He denies fevers or chills or sweats. Clinically he feels well. IV line established. CBC with differential obtained showed a white count of 9.0 with hemoglobin 11.8 and platelet count of 245. Neutrophil percentage was normal at 59.5. Chemistries unremarkable. Lactate was elevated 2.5. Clinically I do not feel patient is septic. I did give him a dose of Unasyn IV. Will start him on Keflex and Bactrim. Advised to follow-up with primary care physician in 3 to 5 days. Will outline the area of erythema and marker. Advised to return if fever, chills, sweats, increased redness or swelling, or condition should worsen anyway. Lab Data Attestation: I reviewed the patient's lab results. Labs: Laboratory Results - last 24 hr 07/21/24 07/21/24 17:41 17:50 WBC 9.0 RBC 3.70 L Hgb 11.8 L Hct 34.9 L MCV 94.3 H MCH 31.9 MCHC 33.8 RDW Std Deviation 45.3 H RDW Coeff of Tomi 13.2 Plt Count 245 MPV 9.9 Immature Gran % (Auto) 0.800 Neut % (Auto) 59.5 Lymph % (Auto) 15.4 L Cabell % (Auto) 18.1 H Eos % (Auto) 5.3 H Baso % (Auto) 0.9 Absolute Neuts (auto) 5.4 Absolute Lymphs (auto) 1.39 Nucleated RBC % 0 Differential Comment SEE COMMENT Platelet Estimate ADEQUATE RBC Morphology N CHROM Anisocytosis RARE Macrocytosis RARE Sodium 142 Potassium 3.5 Chloride 109 H Carbon Dioxide 26.0 Anion Gap 7 BUN 15 Creatinine 0.74 Estim Creat Clear Calc 123.27 Est GFR (MDRD) Af Amer 136 Est GFR (MDRD) Non-Af 112 BUN/Creatinine Ratio 20.1 H Glucose 89 Lactic Acid 2.5 H* Calcium 9.3 Discharge Plan Triage Chief Complaint: Cellulitis ED Provider: Ciro Alberto Dx/Rx/DC Orders Clinical Impression: Cellulitis of left leg Instructions: ED Cellulitis Prescriptions: New sulfamethoxazole-trimethoprim 800-160 mg tablet 1 tab PO BID Qty: 20 0RF cephalexin 500 mg capsule 500 mg PO Q6 Qty: 40 0RF No Action pravastatin 40 MG tablet 40 mg PO QHS Patient Comments: cholesterol famotidine 20 MG tablet 20 mg PO DAILY Patient Comments: acid reflux finasteride 5 MG tablet 5 mg PO DAILY Patient Comments: urinary retention aspirin 81 MG tablet 81 mg PO DAILY@0800 Patient Comments: heart health cyanocobalamin (vitamin B-12) 1,000 MCG tablet 1,000 mcg PO DAILY fluoxetine 40 MG capsule 40 mg PO DAILY levothyroxine 75 MCG tablet 75 mcg PO DAILY labetalol 100 MG tablet 100 mg PO BID ferrous sulfate 325 MG tablet 325 mg PO DAILY oxybutynin chloride 5 MG tablet 10 mg PO DAILY Primary Care Provider: Curt Ram Referrals: Curt Ram MD [Primary Care Provider] - 3-5 Days Print Language: Vietnamese Disposition Disposition: Home, Self Care
[2024-07-21 18:08] LABS: Absolute Lymphocyte Count 1.39 X10^3/uL (0.83-4.51); Absolute Neutrophil Count 5.4 X10^3/uL (2.0-7.7); Basophil# 0.08 X10^3/uL; Basophil% 0.9 % (0-1); Eosinophil# 0.48 X10^3/uL; Eosinophils% 5.3 % (0-5); Hematocrit 34.9 % (40-54); Hemoglobin 11.8 g/dL (13.0-16.5); Lymphocyte # 1.39 X10^3/ul (0.83-4.51); Lymphocyte % 15.4 % (19-41); Mean Corp Hgb Conc 33.8 g/dL (32-36); Mean Corpuscular Hgb 31.9 pg (27.0-32.0); Mean Corpuscular Volume 94.3 fL (80-94); Mean Platelet Vol. 9.9 fl (6.2-12.0); Monocyte# 1.63 X10^3/uL; Monocyte% 18.1 % (0-10); NRBC Flagged by Analyzer 0 % (0-5); Neutrophil # 5.35 X10^3/uL (2.7-7.7); Neutrophil % 59.5 % (47-70); POSITIVE DIFFERENTIAL YES; Platelet Count 245 K/mm3 (150-450); RBC Distribution Width CV 13.2 % (11.6-14.6); RBC Distribution Width SD 45.3 fl (35.1-43.9)
[2024-07-21 18:20] LABS: Anion Gap 7 (5-15); BUN 15 mg/dL (7-18); BUN/Creat Ratio 20.1 RATIO (10-20); Calcium,Total 9.3 mg/dL (8.5-10.1); Chloride 109 mmol/L (98-107); Creatinine, Serum 0.74 mg/dL (0.70-1.30); EST Glomerular Filtration Rate 112 mL/min (>60); Est Glom Filt Rate - Afr Amer 136 mL/min (>60); Estimated Creatinine Clearance 123.27 ml/min; Glucose 89 mg/dL (74-106); Potassium 3.5 mmol/L (3.5-5.1); Sodium Level 142 mmol/L (136-145)
[2024-07-21 18:26] VITALS: BP 131/107; PULSE 54; RESP 16; TEMP 36.3; O2SAT 95
[2024-07-21 18:34] LABS: Differential Indicated SCAN CRITERIA MET
[2024-07-21 18:36] LABS: Anisocytosis RARE; Macrocytosis RARE; Platelet Estimate ADEQUATE (ADEQ); Red Cell Morphology N CHROM NORMAL (NORM C&C)
[2024-07-21] MEDS: Ampicillin/Sulbactam 3 GM in 0.9% Normal Saline (100mL MB+) 100 ML IV (18:53)
[2024-07-21 19:00] VITALS: BP 142/86; PULSE 59; RESP 22; TEMP 36.3; O2SAT 97
[2024-07-21 19:00] LABS: Lactic Acid 2.5 mmol/L (0.4-1.9)
[2024-07-21 19:29] VITALS: BP 150/83; PULSE 57; RESP 16; TEMP 36.4; O2SAT 95
[2024-07-21 21:56] LABS: Reflex Lactate? Y
== END 2024-07-21 19:31 | disposition home or self-care (01) ==
PROVIDERS: Emergency Provider Emergency Medicine; PCP Family Medicine; Visit Provider Emergency Medicine
DX: L03.116 Cellulitis of left lower limb (principal); R74.8 Abnormal levels of other serum enzymes; Z87.891 Personal history of nicotine dependence
CPT/HCPCS: 80048; 83605; 85025; 99283; A4216; J0295

== ENCOUNTER 2024-07-23 18:52 | Emergency (ER) | payer MEDICARE, SELFPAY ==
[2024-07-23 18:53] VITALS: BP 116/68; PULSE 65; RESP 20; TEMP 36.4; O2SAT 97; BMI 31.8
--- NOTE | 2024-07-23 19:11 | EX.ED.DYSGE1 ---
HPI History of Present Illness Chief Complaint: Cellulitis Detail of Chief Complaint: Concerns swelling has not gone down. Informant: patient and spouse/S.O. Onset/Context/Timing Onset: Days (Onset July 19. Seen July 21 and treated with cephalexin and Bactrim DS) Context: Sudden Onset Timing: Continuous Quality: Patient has swelling. There is slight erythema. There are blisters with p Location: Anterior left leg Current Severity: Mild Maximum Severity: Mild Worsened by: Disruption of lymphatics from prior traumatic injuries Relieved by: Not applicable Associated Symptoms Associated Symptoms: No constitutional symptoms. Patient was unaware that he had 3 blisters david Narrative Narrative: Patient is a 63-year-old male. He was seen on July 21. He was placed on cephalexin and trimethoprim/sulfamethoxazole double strength. He was treated for cellulitis. He is concerned because of drainage. Upon questioning he has had drainage from that leg intermittently for years. Patient was informed that his swelling will not go down immediately. Patient denies fever, chills night sweats. Patient does endorse the redness is less intense. Prior similar symptoms: Yes Recent Illness/Hospitalization: [facility] Medical History History of cellulitis Home Medications ?Medication ?Instructions ?Recorded ?Last Taken ?Type famotidine 20 mg tablet 20 mg PO DAILY gerd 05/18/16 12/04/18 History finasteride 5 mg tablet 5 mg PO DAILY htn 05/18/16 12/04/18 History pravastatin 40 mg tablet 40 mg PO QHS cholesterol 05/18/16 12/04/18 History aspirin 81 mg tablet,delayed 81 mg PO DAILY@0800 health 12/12/16 07/04/18 History release maintenance cyanocobalamin (vitamin B-12) 1,000 mcg PO DAILY supplement 12/04/18 12/04/18 History 1,000 mcg tablet fluoxetine 40 mg capsule 40 mg PO DAILY mental health 12/05/18 12/04/18 History labetalol 100 mg tablet 100 mg PO BID htn 12/05/18 12/04/18 History levothyroxine 75 mcg tablet 75 mcg PO DAILY hypothyroidism 12/05/18 12/04/18 History ferrous sulfate 325 mg (65 mg 325 mg PO DAILY 09/29/19 Unknown History iron) tablet oxybutynin chloride 5 mg tablet 10 mg PO DAILY bladder control 09/29/19 Unknown History cephalexin 500 mg capsule 500 mg PO Q6 #40 CAPSULES 07/21/24 Unknown Rx sulfamethoxazole 800 1 tab PO BID #20 TABLETS 07/21/24 Unknown Rx mg-trimethoprim 160 mg tablet Allergy/AdvReac Type Severity Reaction Status Date / Time No Known Allergies Allergy Verified 07/23/24 18:56 Social History Smoking Status: Former smoker ROS ROS ED Constitutional Constitutional ED: Denies chills, fever(s), subjective, sweats or weight loss Gastrointestinal Gastrointestinal: Denies nausea or vomiting Musculoskeletal Musculoskeletal: Denies arthralgias or myalgias Integumentary Reports rash and other Details: 3 blisters that had purulent material in them. ; Denies abscess or Abrasions Neurologic Neurologic: Denies paresthesias or weakness Hematologic/Lymphatic Hematologic/Lymphatic: Denies easy bleeding or easy bruising EXAM Physical Exam Const Vital Signs: 07/23/24 18:53 Temperature 97.5 F L Temperature Source Oral Pulse Rate 65 Respiratory Rate 20 H Blood Pressure 116/68 Blood Pressure Mean 84 Pulse Ox 97 Oxygen Delivery Method Room Air Positive well nourished and well developed General Appearance ED: well developed and NAD; Negative for cyanotic or diaphoretic Resp normal respiratory effort Cardio regular rate and regular rhythm Extremity Negative for normal to inspection General Extremety ED: Yes edema General Extremity: edema Neuro oriented x3 and CN's II-XII intact bilaterally Sensorium / Orientation: alert Psych mental status grossly normal Skin Skin Narrative: Slight erythema without warmth. There are 3 blisters that were unroofed because of purulent drainage. There is no surrounding erythema. There is no warmth. MDM MDM MDM Narrative Medical decision making narrative: Patient with cellulitis that is improving on appropriate antibiotics. The infected blisters were unroofed. Nurse will apply dressing. In my opinion no further testing is needed and there is no need for change in treatment. Discharge Plan Triage Chief Complaint: Cellulitis ED Provider: Zachary Mariscal Dx/Rx/DC Orders Clinical Impression: Cellulitis of left leg, Infected blister Instructions: ED Cellulitis Prescriptions: No Action pravastatin 40 MG tablet 40 mg PO QHS Patient Comments: cholesterol famotidine 20 MG tablet 20 mg PO DAILY Patient Comments: acid reflux finasteride 5 MG tablet 5 mg PO DAILY Patient Comments: urinary retention aspirin 81 MG tablet 81 mg PO DAILY@0800 Patient Comments: heart health cyanocobalamin (vitamin B-12) 1,000 MCG tablet 1,000 mcg PO DAILY fluoxetine 40 MG capsule 40 mg PO DAILY levothyroxine 75 MCG tablet 75 mcg PO DAILY labetalol 100 MG tablet 100 mg PO BID ferrous sulfate 325 MG tablet 325 mg PO DAILY oxybutynin chloride 5 MG tablet 10 mg PO DAILY sulfamethoxazole-trimethoprim 800-160 mg tablet 1 tab PO BID Qty: 20 0RF cephalexin 500 mg capsule 500 mg PO Q6 Qty: 40 0RF Primary Care Provider: Curt Ram Referrals: Curt Ram MD [Primary Care Provider] - Print Language: [place] Disposition Disposition: Home, Self Care
[2024-07-23 19:21] VITALS: BP 127/80; PULSE 61; RESP 16; TEMP 36.5; O2SAT 98
== END 2024-07-23 19:25 | disposition home or self-care (01) ==
LOC: ED 19:19
PROVIDERS: Emergency Provider Emergency Medicine; PCP Family Medicine; Referring Provider Emergency Medicine; Visit Provider Emergency Medicine
DX: L03.116 Cellulitis of left lower limb (principal); Z87.891 Personal history of nicotine dependence
CPT/HCPCS: 99282

== ENCOUNTER 2024-07-27 10:26 | Inpatient (IN) | payer MEDICARE, SELFPAY ==
[2024-07-27] VITALS (8 sets, daily range): BP systolic 112–157; BP diastolic 67–90; PULSE 60–70; RESP 18–20; TEMP 35.5–36.8; O2SAT 95–100; BMI 31.6; BMI 29.9
--- NOTE | 2024-07-27 10:44 | VDLE_ITS ---
Reason For Study: LLE Pain RIGHT LEFT CFV is compressible, spontaneous, phasic, GSV is normal. competent and demonstrates normal CFV is compressible, spontaneous, phasic, augmentation. competent, and demonstrates normal Procedure augmentation. This is a venous duplex using B-mode, color FV is compressible, spontaneous, phasic, flow and spectral Doppler. competent and demonstrates normal Exam performed portable in ED. augmentation. Limited views were obtained. POP V is compressible, spontaneous, phasic, A preliminary report was called and/or faxed competent and demonstrates normal to Dr. Zavala. augmentation. T/P Trunk is compressible. Unable to visualize calf veins at prox and mid due to mottled skin. HX crush injury with skin and muscle grafts. Distal PTV is compressible Mid and Dist Daina V is compressible. Multiple enlarged and vascularized lymph nodes visualized in groin measuring approximately 1.86cm x 2.44cm and 1.55cm x 2.41cm. VL/Venous Duplex US, Unilateral Interpretation Summary Deep veins of the left lower extremity are patent and compressible segmentally. There is no evidence of left lower extremity deep vein thrombosis. The left great saphenous vein loraine ears patent and compressible segmentally. Limited study below knee Multiple enlarged and vascularized left inguinal lymph nodes visualized measuri ng approximately 1.86cm x 2.44cm and 1.55cm x 2.41cm. Ordering Physician: Iván Zavala Referring Physician: Curt Ram Performed By: Elder Land, RVT
--- NOTE | 2024-07-27 10:56 | EDS_ITS ---
HPI History of Present Illness Chief Complaint: Wound Informant: patient and spouse/S.O. Narrative Narrative: 53-year-old male states he started getting what he thinks was a recurrent cellulitis in his left lower leg last week, he was seen here and placed on no an tibiotics after getting a dose of something intravenous, and then he was seen again for reevaluation because it seemed like the swelling was not going down and then he was seeping from some of the blisters. Had a remote crush injury in his leg and surgeries from it, and has had infections like this in the past, some of which she has done well as an outpatient with that some of which he needed to be admitted to the hospital. Spouse brings him back today because the pain and swelling are now worse in the calf and lower leg, as well as some bruising/redness in the foot which was not there before, but the pain is limiting him to the point where he is almost unable to get out of bed and get around. The was able to get him here by private vehicle but states that she was having difficulty getting him out of bed and into the car and almost needed EMS. He denies any fevers or chills or other systemic symptoms, it really is just his left leg that is hurting and has had some occasional soreness in the left groin. He is on aspirin no anticoagulants no history of a DVT there. [facility] Medical History (Updated 07/27/24 @ 11:[address] Iván Zavala MD) History of cellulitis Home Medications ?Medication ?Instructions ?Recorded ?Last Taken ?Type famotidine 20 mg tablet 20 mg PO DAILY gerd 05/18/16 12/04/18 History finasteride 5 mg tablet 5 mg PO DAILY htn 05/18/16 12/04/18 History pravastatin 40 mg tablet 40 mg PO QHS cholesterol 05/18/16 12/04/18 History aspirin 81 mg tablet,delayed 81 mg PO DAILY@0800 health 12/12/16 07/04/18 History release maintenance cyanocobalamin (vitamin B-12) 1,000 mcg PO DAILY supplement 12/04/18 12/04/18 History 1,000 mcg tablet fluoxetine 40 mg capsule 40 mg PO DAILY mental health 12/05/18 12/04/18 History labetalol 100 mg tablet 100 mg PO BID htn 12/05/18 12/04/18 History ferrous sulfate 325 mg (65 mg 325 mg PO DAILY 09/29/19 Unknown History iron) tablet cephalexin 500 mg capsule 500 mg PO Q6 #40 CAPSULES 07/21/24 Unknown Rx sulfamethoxazole 800 1 tab PO BID #20 TABLETS 07/21/24 Unknown Rx mg-trimethoprim 160 mg tablet levothyroxine 150 mcg tablet 150 mcg PO DAILY 07/27/24 Unknown History oxybutynin chloride 10 mg 10 mg PO DAILY 07/27/24 Unknown History tablet,extended release 24 hr Allergy/AdvReac Type Severity Reaction Status Date / Time No Known Allergies Allergy Verified 07/27/24 10:27 Surgical History (Updated 07/27/24 @ 11:39 by Shalini Pace) History of surgery on lower extremity Social History Smoking Status: Former smoker ROS ROS ED Constitutional Constitutional ED: Denies chills or fever(s) Musculoskeletal Musculoskeletal: Reports extremity pain; Denies neck pain Integumentary Reports rash; Denies Abrasions or wounds Neurologic Neurologic: Reports other Details: Chronic decreased sensation in area of scar tissue postoperatively chronic left lower leg ; Denies weakness EXAM Physical Exam Const Vital Signs: 07/27/24 10:27 Temperature 96 F L Temperature Source Temporal Pulse Rate 70 Respiratory Rate 18 Blood Pressure 157/90 H Blood Pressure Mean 112 Pulse Ox 100 Oxygen Delivery Method Room Air Positive well nourished and well developed General Appearance ED: well developed and NAD Neck full ROM and supple Back/Spine normal ROM and normal to inspection Extremity Extremity Narrative: There are skin grafts and other surgical scars in the left lower leg. There is mild erythema and edema that is different than the contralateral which has none, but there is no well-demarcated border of erythema; seems to be somewhere in the mid lower leg where it starts to become more normal-colored, but there is focal swelling in the medial aspect where there is a lot of scar tissue that they state is chronic and normal for him, it is not fluctuant and it does not appear to be consistent with an abscess, but he is tender in the mid posterior lower leg. Compartments are soft and nondistended he is able to move the ankle and the knee. At the dorsum of the forefoot there is ecchymosis/petechia that is nontender and without swelling or abscess or obvious open wound. Toes are benign. Palpable pulse dorsalis pedis. There is also a palpable mobile tender inguinal lymph node in the proximal medial left thigh. Neuro oriented x3 and no focal motor deficits Neuro Narrative: Some decrease sensation to light touch in the area of the medial left lower leg where there is scar tissue and skin graft. This is all well-healed and there are no open wounds. Sensorium / Orientation: alert Psych mental status grossly normal and thought process normal Skin no wounds Skin Narrative: See above for rash left lower leg. No abscess or lymphangitis. MDM MDM MDM Narrative Medical decision making narrative: This is all consistent with cellulitis, and by the history and how many days it has been, 3-4 since his last ED visit, this is consistent with failure of outpatient therapy. I did review the prior visits, there was no ultrasound so I am doing that to rule out a venous thrombosis. I am also giving him empiric vancomycin. I spoke with the mechanic sound technician, he did not see a DVT although there was some limitations based on scar tissue and hardware. He did see inflamed lymph nodes consistent with infection. 4 view x-ray series of the left tibia-fibula and 2 view x-ray series of the left foot on both my interpretation showed no subcutaneous emphysema. I do not think there is any necrotic tissue or signs of necrotizing fasciitis here. Based on his limited mobility and failure of outpatient antibiotics, plan is for admission spoke with hospitalist Lab Data Attestation: I reviewed the patient's lab results. Labs: Laboratory Results - last 24 hr 07/27/24 11:05 WBC 9.7 RBC 3.57 L Hgb 11.3 L Hct 33.2 L MCV 93.0 MCH 31.7 MCHC 34.0 RDW Std Deviation 43.7 RDW Coeff of Tomi 12.8 Plt Count 355 MPV 9.1 Immature Gran % (Auto) 1.800 H Neut % (Auto) 67.4 Lymph % (Auto) 16.2 L Garvin % (Auto) 8.7 Eos % (Auto) 4.9 Baso % (Auto) 1.0 Absolute Neuts (auto) 6.6 Absolute Lymphs (auto) 1.57 Nucleated RBC % 0 Sodium 140 Potassium 3.6 Chloride 108 H Carbon Dioxide 24.0 Anion Gap 8 BUN 6 L Creatinine 0.79 Est GFR (MDRD) Af Amer 126 Est GFR (MDRD) Non-Af 104 BUN/Creatinine Ratio 7.6 L Glucose 76 Calcium 8.7 Management Discussion w/another healthcare provider: Hospitalist Discharge Plan Dx/Rx/DC Orders Clinical Impression: Cellulitis of left leg, Failure of outpatient treatment Disposition Disposition: Acute Care Hospital [facility]
[2024-07-27] MEDS: Morphine 2 MG/ML Syringe IV (11:02)
[2024-07-27 11:15] LABS: Absolute Lymphocyte Count 1.57 X10^3/uL (0.83-4.51); Absolute Neutrophil Count 6.6 X10^3/uL (2.0-7.7); Eosinophil# 0.48 X10^3/uL; Eosinophils% 4.9 % (0-5); Hematocrit 33.2 % (40-54); Hemoglobin 11.3 g/dL (13.0-16.5); Lymphocyte # 1.57 X10^3/ul (0.83-4.51); Lymphocyte % 16.2 % (19-41); Mean Corpuscular Hgb 31.7 pg (27.0-32.0); Mean Platelet Vol. 9.1 fl (6.2-12.0); Monocyte# 0.84 X10^3/uL; Monocyte% 8.7 % (0-10); NRBC Flagged by Analyzer 0 % (0-5); Neutrophil # 6.55 X10^3/uL (2.7-7.7); Neutrophil % 67.4 % (47-70); Platelet Count 355 K/mm3 (150-450); RBC Distribution Width CV 12.8 % (11.6-14.6); RBC Distribution Width SD 43.7 fl (35.1-43.9); Red Blood Count 3.57 M/mm3 (4.6-6.2); White Blood Count 9.7 K/mm3 (4.4-11.0)
--- NOTE | 2024-07-27 11:25 | RAD_ITS ---
STUDY: X-RAY - LEFT TIBIA AND FIBULA REASON FOR EXAM: Male, 63 years old. Pain / swelling / infection. TECHNIQUE: 5 views of the left tibia and fibula were obtained. COMPARISON: None. FINDINGS: There is ORIF hardware with plate and screws in the proximal to mid tibia, fixating a healed fracture deformity of the proximal tibial shaft. There is a healed fracture of the midshaft of the fibula. There is no demonstrated acute fracture. There is mild soft tissue swelling of the calf. RAD/Tibia & Fibula 2 Views IMPRESSION: ORIF hardware proximal to mid tibia. Healed fracture deformities of the proximal tibial shaft and fibular mid shaft. Mild soft tissue swelling of the calf. Electronically Signed: Denis Gómez MD at 12:09 EDT ,
--- NOTE | 2024-07-27 11:25 | RAD_ITS ---
STUDY: X-RAY - LEFT FOOT CLINICAL: Male, 63 years old. Pain / swelling / infection. TECHNIQUE: 2 views of the left foot. COMPARISON: None. FINDINGS: Intact talus, calcaneus, and tarsal bones. There is degenerative arthrosis at the talonavicular and calcaneocuboid articulations. There is mild degenerative arthrosis at the second tarsometatarsal joint. Normal metatarsi. Normal metatarsophalangeal joint of the great toe. Normal tibial and fibular sesamoid bones. Normal interphalangeal joint of the great toe. Normal phalanges of the great toe. Normal second through fifth metatarsophalangeal joints. Normal interphalangeal joints and phalanges of the lesser toes. There is no demonstrated acute fracture. The soft tissue structures are unremarkable. 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 Electronically Signed: Denis Gómez MD at 12:04 EDT ,
[2024-07-27 11:27] LABS: Anion Gap 8 (5-15); BUN 6 mg/dL (7-18); BUN/Creat Ratio 7.6 RATIO (10-20); Calcium,Total 8.7 mg/dL (8.5-10.1); Chloride 108 mmol/L (98-107); Creatinine, Serum 0.79 mg/dL (0.70-1.30); EST Glomerular Filtration Rate 104 mL/min (>60); Est Glom Filt Rate - Afr Amer 126 mL/min (>60); Glucose 76 mg/dL (74-106); Potassium 3.6 mmol/L (3.5-5.1); Sodium Level 140 mmol/L (136-145)
[2024-07-27] MEDS: Vancomycin HCl 1,500 MG in 0.9% Normal Saline (500mL Bag) 500 ML 250 MG IV (12:35)
--- NOTE | 2024-07-27 13:17 | CON.PCM.ID_ITS ---
Assessment & Plan Assessment/Plan (1) Cellulitis of left leg: PLAN: On vanc, will add cefazolin. Started on bactrim and keflex 07/23/24. Wbc normal, did have elevated lactate. will follow, thank you (2) Failure of outpatient treatment: (3) Crush injury lower leg: HPI Consult Data Date of Consult: 07/27/24 HPI Narrative Reason for Consultation: cellulitis HPI Narrative: GENERAL SITA, is a 63 M with crush injury to LLE in 1996 with skin grafting. Since then, rare episodes of cellulitis to that leg. Most recently, sx started about 8 days ago with progressive redness, swelling, moderate pain, and some serous drainage. No fever or chills. Came to ED 07/23/24, sent home with bactrim and keflex. Sx did not improve, came back to ED, now on vanc, admit planned. Full ROS performed and neg except as noted above. [facility] Medical History History of cellulitis Home Medications ?Medication ?Instructions ?Recorded ?Last Taken ?Type famotidine 20 mg tablet 20 mg PO DAILY gerd 05/18/16 07/26/24 History finasteride 5 mg tablet 5 mg PO DAILY htn 05/18/16 07/26/24 History pravastatin 40 mg tablet 40 mg PO QHS cholesterol 05/18/16 07/26/24 History aspirin 81 mg tablet,delayed 81 mg PO DAILY@0800 health 12/12/16 07/26/24 History release maintenance cyanocobalamin (vitamin B-12) 1,000 mcg PO DAILY supplement 12/04/18 07/26/24 History 1,000 mcg tablet fluoxetine 40 mg capsule 40 mg PO DAILY mental health 12/05/18 07/26/24 History labetalol 100 mg tablet 100 mg PO BID htn 12/05/18 07/26/24 History ferrous sulfate 325 mg (65 mg 325 mg PO DAILY 09/29/19 07/26/24 History iron) tablet cephalexin 500 mg capsule 500 mg PO Q6 #40 CAPSULES 07/21/24 07/26/24 Rx sulfamethoxazole 800 1 tab PO BID #20 TABLETS 07/21/24 07/26/24 Rx mg-trimethoprim 160 mg tablet fluoxetine 10 mg capsule 10 mg PO DAILY 07/27/24 07/26/24 History ibuprofen 200 mg tablet (Advil) 800 mg PO Q6H 07/27/24 07/27/24 History levothyroxine 150 mcg tablet 150 mcg PO DAILY 07/27/24 07/26/24 History oxybutynin chloride 10 mg 10 mg PO DAILY 07/27/24 07/26/24 History tablet,extended release 24 hr Allergy/AdvReac Type Severity Reaction Status Date / Time No Known Allergies Allergy Verified 07/27/24 10:27 Surgical History History of surgery on lower extremity Social History Smoking Status: Former smoker Physical Exam Const alert, oriented x3 and no apparent distress General Appearance: cooperative HEENT normocephalic and head/scalp atraumatic Eyes PERRL and EOMs intact bilaterally Neck supple and No nodes Resp normal air movement and clear to auscultation bilaterally Cardio regular rate and regular rhythm GI soft to palpation, non-tender and non-distended Extremity General Extremity: edema Skin Skin Narrative: L lower leg red, warm, swollen, mild tenderness Neuro CN's II-XII intact bilaterally Lab / Micro Data Attestation: I reviewed the patient's lab results. 07/27/24 11:05 07/27/24 11:05 Labs: Laboratory Results - last 24 hr 07/27/24 11:05: WBC 9.7, RBC 3.57 L, Hgb 11.3 L, Hct 33.2 L, MCV 93.0, MCH 31.7, MCHC 34.0, RDW Std Deviation 43.7, RDW Coeff of Tomi 12.8, Plt Count 355, MPV 9.1, Immature Gran % (Auto) 1.800 H, Neut % (Auto) 67.4, Lymph % (Auto) 16.2 L, [place] % (Auto) 8.7, Eos % (Auto) 4.9, Baso % (Auto) 1.0, Absolute Neuts (auto) 6.6, Absolute Lymphs (auto) 1.57, Nucleated RBC % 0, Sodium 140, Potassium 3.6, Chloride 108 H, Carbon Dioxide 24.0, Anion Gap 8, BUN 6 L, Creatinine 0.79, Est GFR (MDRD) Af Amer 126, Est GFR (MDRD) Non-Af 104, BUN/Creatinine Ratio 7.6 L, Glucose 76, Calcium 8.7 Imaging Radiology Impression Venous Doppler Study 07/27/24 10:44 Interpretation Summary Deep veins of the left lower extremity are patent and compressible segmentally. There is no evidence of left lower extremity deep vein thrombosis. The left great saphenous vein appears patent and compressible segmentally. Limited study below knee Multiple enlarged and vascularized left inguinal lymph nodes visualized measuring approximately 1.86cm x 2.44cm and 1.55cm x 2.41cm. 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 Electronically Signed: Denis Gómez MD at 12:04 EDT Reading Location ID and State: [facility] / [place] , Service support , Tibia/Fibula X-Ray 07/27/24 11:25 IMPRESSION: ORIF hardware proximal to mid tibia. Healed fracture deformities of the proximal tibial shaft and fibular mid shaft. Mild soft tissue swelling of the calf. Electronically Signed: Denis Gómez MD at 12:09 EDT ,
--- NOTE | 2024-07-27 15:29 | PCM.RX.CS ---
Consult Antibiotic Management Pharmacy has been consulted to manage selected antibiotic: Vancomycin Type of Intervention Type of Consult: New start Suspected Infection Suspected Infection: Skin/Soft tissue Prior Doses of Antibiotics Prior Doses of Antibiotics Received/Current Regimen: Vancomycin 1500 mg IV x 1 given 07/27/24 @ 1235 Labs Labs: Sodium 140 mmol/L (136-145) 07/27/24 11:05 Potassium 3.6 mmol/L (3.5-5.1) 07/27/24 11:05 Chloride 108 mmol/L (98-107) H 07/27/24 11:05 Carbon Dioxide 24.0 mmol/L (21.0-32.0) 07/27/24 11:05 Anion Gap 8 (5-15) 07/27/24 11:05 BUN 6 mg/dL (7-18) L 07/27/24 11:05 Creatinine 0.79 mg/dL (0.70-1.30) 07/27/24 11:05 Est GFR (MDRD) Af Amer 126 mL/min (>60) 07/27/24 11:05 Est GFR (MDRD) Non-Af 104 mL/min (>60) 07/27/24 11:05 BUN/Creatinine Ratio 7.6 RATIO (10-20) L 07/27/24 11:05 Glucose 76 mg/dL (74-106) 07/27/24 11:05 Dosing Weight Weight used for dosin kg Estimated Creatinine Clearance Estimated Creatinine Clearance: ~115 Goal Trough Goal Trough: 15-20 mcg/mL Pharmacy Plan for Drug Dosing Pharmacy Plan for Drug Dosing: Vancomycin 1500 mg IV x 1 followed by 1250 mg Q8H Pharmacy Service will continue to monitor and adjust dosing as required. Follow-Up Labs Follow-Up Labs: Trough: Vancomycin Date/Time Labs Ordered Labs to be done on [date and time ordered]: 07/28/24 @ 1230
[2024-07-27] MEDS: Acetaminophen 325 MG Tablet 650 MG PO (15:40)
[2024-07-27] MEDS: oxyCODONE 5 MG Tablet 10 MG PO ×2 (15:41→21:31)
[2024-07-27] MEDS: Cefazolin 2 GM in 0.9% Normal Saline (100mL Bag) 100 ML IV ×2 (15:43→23:19)
--- NOTE | 2024-07-27 15:45 | WOUNDNOTE ---
skin photo: left lower leg
--- NOTE | 2024-07-27 15:46 | WOUNDNOTE ---
Was asked to see patient for cellulitis to the left lower leg. patient states he had a crush injury to the LLE in 1996. pt had skin grafts at that time. states he has had cellulitis a few times in the past. there are no draining areas at this time to culture. see skin photo. leg is edematous and warm to touch. pt states calf is quite tender. will not apply compression at this time per pt request. will monitor.
--- NOTE | 2024-07-27 15:58 | HP.PCM.HOS_ITS ---
[facility] Date of Admission: 07/27/24 Date of Service: 07/27/24 Chief Complaint: Redness and pain in the left lower leg [facility] SITA, is a 63 M who presents to the emergency room at [facility] with complaints of persistent pain, swelling, and redness over his left lower leg. Patient had a crush injury in 1996 and underwent multiple surgeries for repair of his leg, patient stated that a large amount of wood fell on his left leg. Patient came to the ER here 8 days ago with complaints of redness pain and swelling of his left lower leg, he was placed on Keflex and Bactrim but despite being on antibiotics he states it has not improved substantially. Patient states he is having trouble walking on the left leg due to pain Labs shows normal white blood cell count, chemistry profile was unremarkable, venous duplex of the left leg showed no evidence of acute VTE. On examination, patient's left lower leg appeared swollen and warmer to the touch than the right lower leg, there is no evidence of any drainage, left lower leg was more reddened than the right lower leg. Patient was given IV vancomycin in the emergency room, he will be admitted to [place] [id number] for cellulitis of the left lower leg, he will be seen in consultation by infectious diseases. [facility] Medical History History of cellulitis Home Medications ?Medication ?Instructions ?Recorded ?Last Taken ?Type famotidine 20 mg tablet 20 mg PO DAILY gerd 05/18/16 07/26/24 History finasteride 5 mg tablet 5 mg PO DAILY htn 05/18/16 07/26/24 History pravastatin 40 mg tablet 40 mg PO QHS cholesterol 05/18/16 07/26/24 History aspirin 81 mg tablet,delayed 81 mg PO DAILY@0800 health 12/12/16 07/26/24 History release maintenance cyanocobalamin (vitamin B-12) 1,000 mcg PO DAILY supplement 12/04/18 07/26/24 History 1,000 mcg tablet fluoxetine 40 mg capsule 40 mg PO DAILY mental health 12/05/18 07/26/24 History labetalol 100 mg tablet 100 mg PO BID htn 12/05/18 07/26/24 History ferrous sulfate 325 mg (65 mg 325 mg PO DAILY 09/29/19 07/26/24 History iron) tablet cephalexin 500 mg capsule 500 mg PO Q6 #40 CAPSULES 07/21/24 07/26/24 Rx sulfamethoxazole 800 1 tab PO BID #20 TABLETS 07/21/24 07/26/24 Rx mg-trimethoprim 160 mg tablet fluoxetine 10 mg capsule 10 mg PO DAILY 07/27/24 07/26/24 History ibuprofen 200 mg tablet (Advil) 800 mg PO Q6H 07/27/24 07/27/24 History levothyroxine 150 mcg tablet 150 mcg PO DAILY 07/27/24 07/26/24 History oxybutynin chloride 10 mg 10 mg PO DAILY 07/27/24 07/26/24 History tablet,extended release 24 hr Allergy/AdvReac Type Severity Reaction Status Date / Time No Known Allergies Allergy Verified 07/27/24 10:27 Surgical History History of surgery on lower extremity Social History Smoking Status: Former smoker ROS Constitutional Constitutional: Reports weakness; Denies anorexia, change in weight, chills, fatigue, fever(s) or night sweats Eyes Eyes: Denies blurry vision, change in vision, discharge from eye(s) or eye pain Cardiovascular Cardiovascular: Denies chest pain, claudication, edema or palpitations Respiratory/Chest Respiratory/Chest: Denies cough, hemoptysis, shortness of breath at rest or shortness of breath with exertion Gastrointestinal Gastrointestinal: Denies abdominal pain, constipation, diarrhea, hematemesis, hematochezia, melena, nausea or vomiting Genitourinary Genitourinary: Denies dysuria, hematuria, urinary frequency, urinary hesitancy, urinary incontinence or urinary urgency Musculoskeletal Musculoskeletal: Reports other Details: Left lower leg weakness ; Denies back pain, joint pain, joint stiffness, joint swelling, myalgias or neck pain Neurologic Neurologic: Denies abnormal gait, abnormal speech, dizziness, focal weakness, headache(s), loss of vision, numbness, other visual disturbances, paresthesias, syncope or tingling Psychiatric Psychiatric: Denies anxiety, cognitive impairment, depression, irritability, mood swings or suicidal ideation Endocrine Endocrinology: Denies change in body appearance, cold intolerance, excessive sweating, heat intolerance, polydipsia or polyuria Hematologic/Lymphatic Hematologic/Lymphatic: Denies none, anemia, easy bleeding, easy bruising or lymphadenopathy Allergic/Immunologic Allergic/Immunologic: Denies rhinitis, urticaria, eczemia or asthma Vital Signs Vital Signs Vital Signs: 07/27/24 10:27 07/27/24 12:00 07/27/24 12:23 Temperature 96 F L 98.2 F 98.2 F Temperature Source Temporal Oral Pulse Rate 70 60 61 Respiratory Rate 18 19 H 19 H Blood Pressure 157/90 H 139/88 H 139/88 H Blood Pressure Mean 112 105 105 Pulse Ox 100 97 Oxygen Delivery Method Room Air 07/27/24 13:00 07/27/24 14:00 07/27/24 15:00 Temperature 98.3 F 98.3 F 98.3 F Temperature Source Oral Oral Temporal Pulse Rate 62 60 60 Respiratory Rate 20 H 20 H 18 Blood Pressure 140/88 H 117/67 134/88 H Blood Pressure Mean 105 83 103 Pulse Ox 95 Oxygen Delivery Method Room Air Weight Weight: 97.522 kg Body Mass Index (BMI) 29.9 Physical Exam Const alert, oriented x3, no apparent distress and healthy appearing General Appearance: cooperative, well kempt and well developed Orientation / Consciousness: awake, oriented to person, oriented to place and oriented to time HEENT normocephalic, head/scalp atraumatic, hearing grossly normal bilaterally and moist oral mucous membranes Eyes PERRL, EOMs intact bilaterally and conjunctivae normal Neck supple, no JVD, thyroid normal and no carotid bruits General: trachea midline Resp normal respiratory effort, no retractions, no use of accessory muscles and clear to auscultation bilaterally Auscultation: Negative for rales, rhonchi or wheezes Cardio regular rate, regular rhythm, S1 normal heart sound, S2 normal heart sound, no murmurs, no rub and no gallops GI normal to inspection, nondistended, normoactive bowel sounds, soft to palpation, non-tender and non-distended Extremity Extremity Narrative: Generalized edema and redness is noted over the left lower leg Skin Skin Narrative: Skin over the left lower leg is reddened and edematous, it is warm to the touch and somewhat tender to palpation, there is evidence of multiple healed surgical scars over the left lower leg. Neuro oriented x3, CN's II-XII intact bilaterally, moves all extremities, no focal motor deficits and no sensory deficits noted Sensorium / Orientation: awake and alert Speech: speech normal Psych affect normal Results Lab / Micro Data 07/27/24 11:05 07/27/24 11:05 Labs: Laboratory Results - last 24 hr 07/27/24 11:05: WBC 9.7, RBC 3.57 L, Hgb 11.3 L, Hct 33.2 L, MCV 93.0, MCH 31.7, MCHC 34.0, RDW Std Deviation 43.7, RDW Coeff of Tomi 12.8, Plt Count 355, MPV 9.1, Immature Gran % (Auto) 1.800 H, Neut % (Auto) 67.4, Lymph % (Auto) 16.2 L, [place] % (Auto) 8.7, Eos % (Auto) 4.9, Baso % (Auto) 1.0, Absolute Neuts (auto) 6.6, Absolute Lymphs (auto) 1.57, Nucleated RBC % 0, Sodium 140, Potassium 3.6, Chloride 108 H, Carbon Dioxide 24.0, Anion Gap 8, BUN 6 L, Creatinine 0.79, Est GFR (MDRD) Af Amer 126, Est GFR (MDRD) Non-Af 104, BUN/Creatinine Ratio 7.6 L, Glucose 76, Calcium 8.7 Imaging Radiology Impression Venous Doppler Study 07/27/24 10:44 Interpretation Summary Deep veins of the left lower extremity are patent and compressible segmentally. There is no evidence of left lower extremity deep vein thrombosis. The left great saphenous vein appears patent and compressible segmentally. Limited study below knee Multiple enlarged and vascularized left inguinal lymph nodes visualized measuring approximately 1.86cm x 2.44cm and 1.55cm x 2.41cm. 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 Electronically Signed: Denis Gómez MD at 12:04 EDT , Tibia/Fibula X-Ray 07/27/24 11:25 IMPRESSION: ORIF hardware proximal to mid tibia. Healed fracture deformities of the proximal tibial shaft and fibular mid shaft. Mild soft tissue swelling of the calf. Electronically Signed: Denis Gómez MD at 12:09 EDT , Assessment & Plan Assessment/Plan (1) Failure of outpatient treatment: PLAN: Plan 1. Cellulitis of the left lower leg with failed outpatient treatment with contributing factor being past history of crush injury to left lower leg-patient will be admitted to [facility] 3, antibiotic treatment will be directed by infectious diseases who will see the patient in consultation, labs will be monitored #2 hypothyroidism-patient will remain on his Synthroid #3 hyperlipidemia-patient is on pravastatin #4 essential hypertension-patient will remain on his present medications, they will be adjusted as necessary Total clinical time spent by myself addressing the patient's medical issues, reviewing all of his data, and collaborating with patient's care team: 55 minutes Charges/Coding Visit Charges Inpatient E&M: 04630 Init Hosp L2
[2024-07-27] MEDS: Vancomycin HCl 1,250 MG in 0.9% Normal Saline (250mL Bag) 250 ML 167 MG IV (20:54)
[2024-07-27] MEDS: Ibuprofen 400 MG Tablet 800 MG PO (21:05)
[2024-07-27] MEDS: Pravastatin 40 MG Tablet PO (21:07)
[2024-07-27] MEDS: Heparin Injection (Vial) 5,000 UNIT/ML VIAL 5000 UNIT SC (21:07)
[2024-07-27] MEDS: Labetalol 100 MG Tablet PO (21:07)
[2024-07-28] MEDS: Ibuprofen 400 MG Tablet 800 MG PO ×3 (00:09→11:31)
[2024-07-28 02:24] VITALS: BP 142/88; PULSE 58; RESP 18; TEMP 36.5; O2SAT 94
[2024-07-28] MEDS: Vancomycin HCl 1,250 MG in 0.9% Normal Saline (250mL Bag) 250 ML 167 MG IV (05:05)
[2024-07-28] MEDS: Levothyroxine 150 MCG Tablet PO (06:31)
[2024-07-28 06:49] LABS: Absolute Lymphocyte Count 1.69 X10^3/uL (0.83-4.51); Basophil# 0.07 X10^3/uL; Basophil% 0.9 % (0-1); Eosinophil# 0.54 X10^3/uL; Eosinophils% 6.6 % (0-5); Hematocrit 31.6 % (40-54); Hemoglobin 10.4 g/dL (13.0-16.5); Lymphocyte # 1.69 X10^3/ul (0.83-4.51); Lymphocyte % 20.7 % (19-41); Mean Corp Hgb Conc 32.9 g/dL (32-36); Mean Corpuscular Hgb 31.2 pg (27.0-32.0); Mean Corpuscular Volume 94.9 fL (80-94); Mean Platelet Vol. 9.1 fl (6.2-12.0); Monocyte# 0.81 X10^3/uL; Monocyte% 9.9 % (0-10); NRBC Flagged by Analyzer 0 % (0-5); Neutrophil # 4.95 X10^3/uL (2.7-7.7); Neutrophil % 60.8 % (47-70); Platelet Count 333 K/mm3 (150-450); RBC Distribution Width CV 13.2 % (11.6-14.6); RBC Distribution Width SD 45.2 fl (35.1-43.9); Red Blood Count 3.33 M/mm3 (4.6-6.2); White Blood Count 8.2 K/mm3 (4.4-11.0)
[2024-07-28] MEDS: Cefazolin 2 GM in 0.9% Normal Saline (100mL Bag) 100 ML IV ×2 (07:23→15:12)
[2024-07-28 08:13] VITALS: BP 145/94; PULSE 62; RESP 16; TEMP 36.5; O2SAT 94
[2024-07-28] MEDS: Ondansetron 4 MG/2 ML Vial IV (08:38)
[2024-07-28] MEDS: 0.9% Saline Lock 10 ML Syringe IV ×2 (08:38→15:12)
--- NOTE | 2024-07-28 10:15 | CASEMGMT ---
ASHIA LITTLE Assessment: Face to Face with pt for initial transition planning/care coordination assessment. RN SIDNEY introduced self and role at [facility], pt voices understanding and consents to assessment. Pt is A&O x4 and answers all questions appropriately at this time. Pt lying in bed in no distress. Care providers, pharmacy, and demographics verified/updated. Strata: 2 Admitting Dx: Cellulitis LLE PCP: Leanna Specialists: Denies Preferred Pharmacy: [facility] Insurance: [employer] [facility] Prescription Benefit: yes LNOK: , Jan Living Arrangements: Pt lives with in a 2 story home with 2 or 3 steps to enter. ADLs: Pt states I with ADls and IADLs. Transportation: Pt drives self and denies concerns with transportation. DME: pt denies DME at home. HHC/SNF: Denies Hx of. Pt states no concerns with going home at time of dc. Pt states no further concerns/needs. CM to follow. Advised pt to ask CM if any further question/concerns/needs arise, voices understanding. Pt Goal: Home Plan: Home, follow ID and wound care. Ashu ANG CM
--- NOTE | 2024-07-28 10:20 | PCM.PN.ID ---
Physical Exam Narrative Feeling much better, leg improved. No fever, no diarrhea, some upset stomach. Const alert and no apparent distress General Appearance: cooperative Resp normal air movement and clear to auscultation bilaterally Cardio regular rate and regular rhythm GI soft to palpation, non-tender and non-distended Skin Skin Narrative: LLE redness nearly resolved ID ID: Route of nutrition/ use of supplements: [] Nutritional Intake: [] IV Site: [] Evans Catheter: [] Assessment & Plan Assessment/Plan (1) Cellulitis of left leg: PLAN: On vanc, cefazolin. Started on bactrim and keflex 07/23/24. Wbc normal, did have elevated lactate. Leg dramatically improved today. Ok for home to finish one week keflex. will follow prn (2) Failure of outpatient treatment: (3) Crush injury lower leg:
[2024-07-28] MEDS: Aspirin E.C. 81 MG Tablet PO (11:30)
[2024-07-28] MEDS: Heparin Injection (Vial) 5,000 UNIT/ML VIAL 5000 UNIT SC (11:30)
[2024-07-28] MEDS: Tolterodine Tartrate 2 MG CAP.SA PO (11:30)
[2024-07-28] MEDS: Ferrous Sulfate 325 MG Tablet PO (11:30)
[2024-07-28] MEDS: Finasteride 5 MG Tablet PO (11:31)
[2024-07-28] MEDS: Labetalol 100 MG Tablet PO (11:31)
[2024-07-28] MEDS: Cyanocobalamin 500 MCG Tablet 1000 MCG PO (11:31)
[2024-07-28] MEDS: Famotidine 20 MG Tablet PO (11:31)
[2024-07-28] MEDS: Fluoxetine HCl 40 MG CAPSULE PO (11:31)
[2024-07-28] MEDS: FLUoxetine 10 MG Capsule PO (11:31)
[2024-07-28 13:04] LABS: Vancomycin, Trough Level 19.6 ug/mL (5.0-15.0)
[2024-07-28 14:26] VITALS: BP 99/81; PULSE 121; RESP 16; TEMP 36.8; O2SAT 97
--- NOTE | 2024-07-28 14:51 | DCINST_ITS ---
Discharge Instructions Diet Discharge Diet: No restrictions Activity Discharge Activity: Return to Normal Activity and Use Walker Weight Bearing Status: Full weight bearing Follow Up Care Test Results: Test results from this visit will be discussed in further detail at your follow- up appointment, if applicable. Discharge Plan Admission Admit Date/Time: 07/27/24 12:40 Primary Reason for Your Visit: Cellulitis left leg Attending Provider: Rogelio August Primary Care Provider: Curt Ram Consulting Providers: Rubén Segura Discharge Orders/Prescriptions Prescriptions: New cephalexin 500 mg capsule 500 mg PO TID Qty: 22 0RF Rx Instructions: start the evening 07/28/24 hydrocodone-acetaminophen 5-325 mg tablet 2 tab PO Q6H PRN (Reason: pain) 4 Days Qty: 20 0RF Rx Instructions: one or two every six hours as needed for pain prochlorperazine maleate [Compazine] 5 mg tablet 5 mg PO TID PRN (Reason: nausea and vomiting) Qty: 15 0RF Continued pravastatin 40 MG tablet 40 mg PO QHS Patient Comments: cholesterol famotidine 20 MG tablet 20 mg PO DAILY Patient Comments: acid reflux finasteride 5 MG tablet 5 mg PO DAILY Patient Comments: urinary retention aspirin 81 MG tablet 81 mg PO DAILY@0800 Patient Comments: heart health cyanocobalamin (vitamin B-12) 1,000 MCG tablet 1,000 mcg PO DAILY fluoxetine 40 MG capsule 40 mg PO DAILY Rx Instructions: w/10mg for total daily dose of 50mg labetalol 100 MG tablet 100 mg PO BID ferrous sulfate 325 MG tablet 325 mg PO DAILY oxybutynin chloride 10 mg tablet extended release 24hr 10 mg PO DAILY levothyroxine 150 mcg tablet 150 mcg PO DAILY fluoxetine 10 mg capsule 10 mg PO DAILY Rx Instructions: w/ 40mg for total daily dose of 50mg ibuprofen [Advil] 200 mg tablet 800 mg PO Q6H Discontinued sulfamethoxazole-trimethoprim 800-160 mg tablet 1 tab PO BID Qty: 20 0RF cephalexin 500 mg capsule 500 mg PO Q6 Qty: 40 0RF Referrals / Follow Up: Curt Ram MD [Primary Care Provider] - Within 1 Week Disposition Disposition (needs filled in before D/C Order can be placed): Home, Self Care
--- NOTE | 2024-07-28 14:57 | CASEMGMT ---
Addendum entered by Magnolia Savage 07/28/24 15:09: Pt and deny any HHC needs or outpt therapy. Original Note: Pt requesting a FWW. ASHIA LITTLE into pt room, pt sitting on edge of bed. Provided pt with a verbal local in network list of DME companies, pt chose [employer]. ASHIA LITTLE provided walker and pt signed consignment form. Referral sent to [facility] via [facility]port at this time.
--- NOTE | 2024-07-28 15:08 | DS.PCM_ITS ---
Providers Date of Admission: 07/27/24 Date of Discharge: 07/28/24 Primary Care Physician: Dr. Curt Ram MD Consultations 07/27/24 15:16 Consult: Infectious Disease Routine Consulting Provider: Rubén Segura Reason for Consult: Cellulitis of the left lower leg-failed outpatient treatment EMERGENT Consult: No MD Notified: Yes Date Notified: 07/27/24 Time Notified: 12:43 Method of Notification: Verbal Reason For Visit: CELLULITIS LLE Diagnosis Discharge Diagnosis (1) Cellulitis of left leg: Status: Inactive Code(s): L03.116 - Cellulitis of left lower limb (2) Failure of outpatient treatment: Status: Inactive Code(s): Z78.9 - Other specified health status (3) Crush injury lower leg: Status: Inactive Code(s): S87.80XA - Crushing injury of unspecified lower leg, initial encounter Plan 1. Cellulitis of the left lower leg with failed outpatient treatment with contributing factor being past history of crush injury to left lower leg-patient will be admitted to [facility] 3, antibiotic treatment will be directed by infectious diseases who will see the patient in consultation, labs will be monitored #2 hypothyroidism-patient will remain on his Synthroid #3 hyperlipidemia-patient is on pravastatin #4 essential hypertension-patient will remain on his present medications, they will be adjusted as necessary #5 multifocal atrial tachycardia Total clinical time spent by myself addressing the patient's medical issues, reviewing all of his data, and collaborating with patient's care team: 55 minutes Medications at Discharge Home Medications famotidine 20 mg tablet 20 mg PO DAILY gerd 05/18/16 finasteride 5 mg tablet 5 mg PO DAILY htn 05/18/16 pravastatin 40 mg tablet 40 mg PO QHS cholesterol 05/18/16 aspirin 81 mg tablet,delayed release 81 mg PO DAILY@0800 health maintenance 12/12/16 cyanocobalamin (vitamin B-12) 1,000 mcg tablet 1,000 mcg PO DAILY supplement 12/04/18 fluoxetine 40 mg capsule 40 mg PO DAILY mental health 12/05/18 labetalol 100 mg tablet 100 mg PO BID htn 12/05/18 ferrous sulfate 325 mg (65 mg iron) tablet 325 mg PO DAILY 09/29/19 fluoxetine 10 mg capsule 10 mg PO DAILY 07/27/24 ibuprofen 200 mg tablet (Advil) 800 mg PO Q6H 07/27/24 levothyroxine 150 mcg tablet 150 mcg PO DAILY 07/27/24 oxybutynin chloride 10 mg tablet,extended release 24 hr 10 mg PO DAILY 07/27/24 cephalexin 500 mg capsule 500 mg PO TID #22 caps 07/28/24 hydrocodone-acetaminophen 5-325mg 5mg-325mg 2 tab PO Q6H PRN pain 4 days #20 tabs 07/28/24 prochlorperazine maleate 5 mg tablet (Compazine) 5 mg PO TID PRN nausea and vomiting #15 tabs 07/28/24 Hospital Course Operations None Procedures None Summary of Care Provided Minutes Spent on Discharge: 31 Hospital Course: This 63-year-old white male was seen in the emergency room at [facility] with complaints of swelling and redness over his left lower leg, patient had a previous crush injury to the left lower leg many years before, he had recently been placed on outpatient antibiotics for possible cellulitis of his left lower leg but the area continued to be reddened and was painful. Workup in the emergency room included a CBC which was unremarkable except for hemoglobin of 11.3, patient's CHEM panel was unremarkable. Patient was admitted to [place] [address] and placed on IV antibiotics, he was seen in consultation by infectious diseases, on 07/28/2024, infectious diseases felt that the patient's cellulitis had improved enough for discharge home on oral antibiotics. It was noted the patient had an irregular heartbeat on 07/28/2024 and an EKG was obtained which showed evidence of multifocal atrial tachycardia at a rate of approximately 105. I contacted the patient's PCP (Dr. Ram) while I was in the patient's room with his and I advised that the patient undergo a 48- hour Holter monitor as an outpatient to rule out further arrhythmias. I made him aware that the patient did have MAT. I also talked with the patient's who was in the room at the time of my examination and discharge of the patient, and wrote out instructions for her to contact Dr. Ram's office to set up the patient's Holter monitor. On 07/28/2024, patient was seen and examined: On examination he appeared in good health and spirits. Vital signs as documented. Skin warm and dry and without overt rashes. Neck without JVD, neck was supple, trachea midline, thyroid was normal. Lungs clear bilaterally, normal air movement was noted. Heart exam notable for regular rhythm, normal sounds and absence of murmurs, rubs or gallops. Abdomen unremarkable and without evidence of organomegaly, masses, or abdominal aortic enlargement. Bowel sounds are present, abdomen is not distended. Extremities nonedematous, no cyanosis was noted, no clubbing was noted. Neuro: Cranial nerves II through XII are grossly intact, no focal motor deficits were noted, sensation to light touch and pinprick intact, motor exam 5/5 throughout. Psych: Patient is alert and oriented x3, he does not appear anxious or depressed, he does not appear agitated. Patient was discharged home in stable condition on 07/28/2024. Weight / BMI Weight Weight: 97.522 kg Body Mass Index (BMI) 29.9 ABG / Lab / Microbiology Data 07/28/24 06:18 07/27/24 11:05 Laboratory: Laboratory Results - last 24 hr 07/28/24 06:18: WBC 8.2, RBC 3.33 L, Hgb 10.4 L, Hct 31.6 L, MCV 94.9 H, MCH 31.2, MCHC 32.9, RDW Std Deviation 45.2 H, RDW Coeff of Tomi 13.2, Plt Count 333, MPV 9.1, Immature Gran % (Auto) 1.100 H, Neut % (Auto) 60.8, Lymph % (Auto) 20.7, [place] % (Auto) 9.9, Eos % (Auto) 6.6 H, Baso % (Auto) 0.9, Absolute Neuts (auto) 5.0, Absolute Lymphs (auto) 1.69, Nucleated RBC % 0 07/28/24 12:06: Vancomycin Trough 19.6 H D/C Instructions Discharge Diet: No restrictions Weight Bearing Status: Full weight bearing Meaningful Use Info Meaningful Use Meaningful Use Diagnoses (Choose all that apply): None applicable Ischemic Stroke Statin Dosing Therapy Reference: STATIN DOSE THERAPY REFERENCE: * Patients > 75 years receive moderate or high dose statin therapy. * Patients 75 years or YOUNGER should receive HIGH intensity statin dose unless contraindicated. You will be required to document reason for non-treatment if statin daily dose does not meet guidelines. HIGH DOSE STATIN THERAPY DAILY Atorvastatin > than or = to 40 mg Rosuvastatin > than or = to 20 mg Amlodipine + Atorvastatin > than or = to 2.5/40 mg Ezetimibe + Simvastatin 10/80 mg Simvastatin 80mg Discharge Plan Admission Admit Date/Time: 07/27/24 12:40 Primary Reason for Your Visit: Cellulitis left leg Attending Provider: Rogelio August Primary Care Provider: Curt Ram Consulting Providers: Rubén Segura Discharge Orders/Prescriptions Prescriptions: New cephalexin 500 mg capsule 500 mg PO TID Qty: 22 0RF Rx Instructions: start the evening 07/28/24 hydrocodone-acetaminophen 5-325 mg tablet 2 tab PO Q6H PRN (Reason: pain) 4 Days Qty: 20 0RF Rx Instructions: one or two every six hours as needed for pain prochlorperazine maleate [Compazine] 5 mg tablet 5 mg PO TID PRN (Reason: nausea and vomiting) Qty: 15 0RF Continued pravastatin 40 MG tablet 40 mg PO QHS Patient Comments: cholesterol famotidine 20 MG tablet 20 mg PO DAILY Patient Comments: acid reflux finasteride 5 MG tablet 5 mg PO DAILY Patient Comments: urinary retention aspirin 81 MG tablet 81 mg PO DAILY@0800 Patient Comments: heart health cyanocobalamin (vitamin B-12) 1,000 MCG tablet 1,000 mcg PO DAILY fluoxetine 40 MG capsule 40 mg PO DAILY Rx Instructions: w/10mg for total daily dose of 50mg labetalol 100 MG tablet 100 mg PO BID ferrous sulfate 325 MG tablet 325 mg PO DAILY oxybutynin chloride 10 mg tablet extended release 24hr 10 mg PO DAILY levothyroxine 150 mcg tablet 150 mcg PO DAILY fluoxetine 10 mg capsule 10 mg PO DAILY Rx Instructions: w/ 40mg for total daily dose of 50mg ibuprofen [Advil] 200 mg tablet 800 mg PO Q6H Discontinued sulfamethoxazole-trimethoprim 800-160 mg tablet 1 tab PO BID Qty: 20 0RF cephalexin 500 mg capsule 500 mg PO Q6 Qty: 40 0RF Referrals / Follow Up: Curt Ram MD [Primary Care Provider] - Within 1 Week Disposition Disposition (needs filled in before D/C Order can be placed): Home, Self Care Charges/Coding Visit Charges Inpatient E&M: 07211 Disch Hosp >30min
[2024-07-28 15:20] VITALS: BP 107/72; PULSE 102
--- NOTE | 2024-07-28 15:32 | EKG12_ITS ---
Test Reason : RHYTHM CHANGE Blood Pressure : / mmHG Vent. Rate : 102 BPM Atrial Rate : 000 BPM P-R Int : 000 ms QRS Dur : 088 ms QT Int : 368 ms P-R-T Axes : 000 -01 -12 degrees QTc Int : 479 ms Atrial fibrillation with rapid ventricular response Minimal voltage criteria for LVH, may be normal variant ( R in aVL ) ST & T wave abnormality, consider inferior ischemia Abnormal ECG Confirmed by Humberto Mack ([id number]), editor newspaper ROSAURA ROMERO ([id number]) on 07/29/2024 1:57:00 PM Referred By: Iván Zavala Confirmed By:Humberto Mack
--- NOTE | 2024-07-28 15:32 | NURSING ---
when vitals rechecked, irregularities on monitor for pulse and per apically, irregular. placed on tele monitoring at desk, called for EKG per nursing measure. pt denies any SOB, chest pain or history of any cardiac issues. Will notify PCP with EKG results.
--- NOTE | 2024-07-28 16:23 | PHA.DC.MC.R ---
Pharmacy [facility] has performed discharge medication reconciliation and counseling for this patient. 1. NORCO 1-2T PO Q6H PRN PAIN 2. PROCHLORPERAZINE 5MG PO TID PRN NAUSEA/VOMITING 3. CEPHALEXIN CHANGED TO TID X 7 DAYS The patient's discharge medication list was reviewed for discrepancies and discrepancies were resolved. The patient was counseled on the following discharge medications and changes in medications for homegoing were reviewed. The Reason for Use, instructions for use, and potential side effects were reviewed for all new medications. The patient's questions regarding all of their medications were answered. The patient was able to verbally demonstrate an understanding of their discharge medications. Medications at Discharge Home Medications famotidine 20 mg tablet 20 mg PO DAILY gerd 05/18/16 finasteride 5 mg tablet 5 mg PO DAILY htn 05/18/16 pravastatin 40 mg tablet 40 mg PO QHS cholesterol 05/18/16 aspirin 81 mg tablet,delayed release 81 mg PO DAILY@0800 health maintenance 12/12/16 cyanocobalamin (vitamin B-12) 1,000 mcg tablet 1,000 mcg PO DAILY supplement 12/04/18 fluoxetine 40 mg capsule 40 mg PO DAILY mental health 12/05/18 labetalol 100 mg tablet 100 mg PO BID htn 12/05/18 ferrous sulfate 325 mg (65 mg iron) tablet 325 mg PO DAILY 09/29/19 fluoxetine 10 mg capsule 10 mg PO DAILY 07/27/24 ibuprofen 200 mg tablet (Advil) 800 mg PO Q6H 07/27/24 levothyroxine 150 mcg tablet 150 mcg PO DAILY 07/27/24 oxybutynin chloride 10 mg tablet,extended release 24 hr 10 mg PO DAILY 07/27/24 cephalexin 500 mg capsule 500 mg PO TID #22 caps 07/28/24 hydrocodone-acetaminophen 5-325mg 5mg-325mg 2 tab PO Q6H PRN pain 4 days #20 tabs 07/28/24 prochlorperazine maleate 5 mg tablet (Compazine) 5 mg PO TID PRN nausea and vomiting #15 tabs 07/28/24
[2024-07-28] MEDS: Cephalexin 500 MG Capsule PO (16:46)
== END 2024-07-28 17:30 | disposition home or self-care (01) | DRG 603 ==
LOC: ED 12:37 → MS3 12:52
PROVIDERS: Internal Medicine Infectious Disease; Admitting Provider Internal Medicine; Emergency Provider Emergency Medicine; PCP Family Medicine; Referring Provider Emergency Medicine; Visit Provider Internal Medicine
DX: L03.116 Cellulitis of left lower limb (principal); I47.19 Other supraventricular tachycardia; E03.9 Hypothyroidism, unspecified; I10 Essential (primary) hypertension; E78.5 Hyperlipidemia, unspecified; S87.82XS Crushing injury of left lower leg, sequela; X58.XXXS Exposure to other specified factors, sequela; Z79.82 Long term (current) use of aspirin; Z79.890 Hormone replacement therapy; Z79.899 Other long term (current) drug therapy; Z87.891 Personal history of nicotine dependence
CPT/HCPCS: 36415; 73590; 73620; 80048; 80202; 85025; 93005; 93971; 97161; 99284; J7040; J7050; A4216; J2405

== ENCOUNTER → 2024-12-02 | Outpatient (CLI) | payer MEDICARE, SELFPAY ==
--- NOTE | 2024-12-02 13:15 | STRESSREP_ITS ---
Stress Test Report Date: 12/02/2024 Procedure: Pharmacologic stress nuclear imaging study Indications: Arrhythmia Consent: Per the patient Procedure: The patient underwent pharmacologic (Regadenoson 0.4mg ) evaluation with a peak heart rate of 73 beats per minute (47%predicted maximal heart rate) and a peak blood pressure of 148/94 mmHg. The baseline ECG demonstrated sinus rhythm. The peak pharmacologic ECG demonstrated no ischemic changes. PVCs noted pretest and postinfusion. There was no complaint of chest discomfort during pharmacologic infusion or recovery. The patient was injected with 14.9 millicuries of technetium 99m Cardiolite and subsequently rest SPECT Cardiolite nuclear imaging was obtained in the horizontal long, vertical long, and short axis views. The patient underwent pharmacologic (Regadenoson) evaluation. The patient was injected with 44.7 millicuries of technetium 99m Cardiolite and subsequently stress SPECT Car diolite nuclear imaging was obtained in the horizontal long, vertical long, and short axis views. A gated Cardiolite study at peak stress was obtained. The examination was stopped secondary to completion of protocol. Rest and stress SPECT Cardiolite nuclear imaging status post realignment, normalization, and attenuation correction demonstrate mildly reduced perfusion of the apex which remains unchanged. Likely represent apical thinning. There is end systolic thickening and brightening. The gated Cardiolite study demonstrates myocardial thickening and inward wall motion. The reported LVEF is 60%. Impression: 1. Pharmacologic (Regadenoson) evaluation 2. Peak pharmacologic ECG with no ischemic changes. 3. There were no cardiac dysrhythmias pretest, during pharmacologic infusion, or recovery. 5. Rest and stress SPECT Cardiolite nuclear imaging demonstrate relative uniform tracer uptake and myocardial perfusion appearing within normal limits. 6. The gated Cardiolite study reports an LVEF of 60%. This note was generated with [employer] software. It may contain incorrect words, spelling, and punctuation that were not noted in checking the note before signing.
== END | disposition home or self-care (01) ==
LOC: CVS 06:38
PROVIDERS: PCP Family Medicine; Referring Provider Family Medicine; Visit Provider Family Medicine
DX: R94.31 Abnormal electrocardiogram [ECG] [EKG] (principal); I10 Essential (primary) hypertension; I49.3 Ventricular premature depolarization
CPT/HCPCS: 78452; 93017; A9500; A4216; J2785

== ENCOUNTER → 2025-01-20 | Outpatient (CLI) | payer MEDICARE, SELFPAY ==
--- NOTE | 2025-01-20 08:30 | RAD_ITS ---
EXAM: DOUBLE-CONTRAST UPPER GASTROINTESTINAL SERIES WITH ESOPHAGRAM CLINICAL HISTORY: DYSPHAGIA. COMPARISON: NO RELEVANT PRIOR. TECHNIQUE: Following the ingestion of effervescent granules and high density barium, routine fluoroscopic imaging was performed. FINDINGS: ESOPHAGUS: No abnormalities were seen in the hypopharynx. Esophageal motility was normal. No constricting or obstructing lesions were demonstrated. No intraluminal filling defects. No ulcerations. No hiatal hernia was demonstrated. STOMACH AND PROXIMAL SMALL BOWEL: Stomach distends and contracts normally. No delay in gastric emptying. The stomach, duodenal bulb, and duodenum are negative for ulcers and neoplasms. No mucosal abnormalities. No widening of the duodenal C-loop. No duodenal diverticuli. Visualized proximal small bowel is normal. RAD/Upper GI w/BA Swallow IMPRESSION: 1. Normal esophagram. 2. Normal stomach and proximal small bowel. Reading Location: [place] [id number]
== END | disposition home or self-care (01) ==
LOC: RAD 08:17
PROVIDERS: PCP Family Medicine; Referring Provider Family Medicine; Visit Provider Family Medicine
DX: R13.19 Other dysphagia (principal)
CPT/HCPCS: 74246

== ENCOUNTER → 2025-08-12 | Outpatient (CLI) | payer MEDICARE, SELFPAY | END | disposition home or self-care (01) | LOC: SL 19:49 | PROVIDERS: PCP Family Medicine; Referring Provider Nurse Practitioner Adult Health; Visit Provider Nurse Practitioner Adult Health | DX: G47.33 Obstructive sleep apnea (adult) (pediatric) (principal); Z78.9 Other specified health status | CPT/HCPCS: 95811 ==